=== PATIENT | male | born 1945 | race Caucasian/White ===

== ENCOUNTER → 2018-04-30 09:44 | Outpatient (BNVA) | payer MEDICARE, SELFPAY | PROVIDERS: PCP Emergency Medicine; Visit Provider Surgery | DX: R19.8 Other specified symptoms and signs involving the digestive system and abdomen (principal); I10 Essential (primary) hypertension | CPT/HCPCS: 99213 ==

== ENCOUNTER 2018-05-29 09:48 | Day surgery (SDC) | payer MEDICARE, SELFPAY ==
[2018-05-29 10:38] VITALS: BP 142/93; PULSE 70; RESP 16; TEMP 37; O2SAT 99
[2018-05-29] MEDS: Lactated Ringers 1,000 ML 30 ML IV ×2 (10:55→12:31)
--- NOTE | 2018-05-29 12:06 | ROE_ITS ---
Date of service: 05/29/18 Time of Service: 12:04 Operative Note DATE OF PROCEDURE: 05/29/18 PRE-OP DIAGNOSIS: Abnormal findings on EGD POST-OP DIAGNOSIS: same PROCEDURE: Esophagogastroduodenoscopy with biopsies by cold forceps SURGEON: Ethan Rome ANESTHESIA: MAC (Heather Escobar CRNA; ASA 2 Mallampati class II) ESTIMATED BLOOD LOSS: 1 PATHOLOGY: other (1. Gastric antral biopsies 2. Gastroesophageal junction biopsies) COMPLICATIONS: None Patient was transported to: PACU Patient's condition: stable Indications: Mr. 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 It was recommended he follow-up in 6 months for a repeat EGD which is what he is here for today. His dysphagia has resolved he continues to take the ranitidine has no other complaints today other than some shoulder pain. Findings: In examining the upper gastrointestinal tract from the oropharynx to the third portion of the duodenum, the duodenum appeared grossly normal, but again was seen inflammatory changes in the gastric antrum with multiple biopsies taken and submitted for pathology. The remainder of the stomach appeared grossly normal. The GE junction was measured at 36 cm; the Z line was at 30 cm and a little irregular. Four-quadrant biopsies were taken from the GE junction for pathology review. The remainder the esophagus appeared grossly normal. Procedure Description: The patient was brought to the procedure room. Monitoring for telemetry, end- tidal CO2, O2 saturation, blood pressure were applied. An appropriate timeout was taken reviewing the patient's identification, allergies, medications,and procedure. A bite was placed, and sedation was titrated for effect by the PARA MACHINE OPERATOR. An Olympus variable stiffness endoscope was advanced from the oropharynx to the third portion of the duodenum without difficulty. The scope was then withdrawn in circumferential manner from the duodenum back to the oropharynx. In performing withdrawal of the scope, the duodenum appeared grossly normal. The scope was withdrawn into the gastric antrum and retroflexed to examine the entire stomach. The gastric antrum was noted to be inflamed and again multiple biopsies were taken for pathology,retroflexion the remainder of the stomach appeared grossly normal. The scope was then withdrawn to the GE junction which I measured at 36 cm The Z line was at 36 cm and appeared irregular. The irregularity was noncircumferential and did not extend more than 1 cm four- quadrant biopsies were taken from the GE junction pathological review. I withdrew the scope through the remainder of the esophagus all which appear grossly normal. Scope was then withdrawn terminating the upper endoscopy. Plan: I will await biopsies for making further recommendations.
--- NOTE | 2018-05-29 12:28 | STOM_PTH ---
PATIENT: Louis Odell LOC: [facility] U#:[id number] AGE/SX: 73/M ROOM: RE05/29/[address]: Ethan Rome DO : 1945 BED: DIS: 05/29/2018 SPEC #: [id number] RECD: 05/29/18 17:05 STATUS: CHARLIE RE #: [id number] CURT: 05/29/18 12:[address]: Ethan Rome DEPT: Surgical Specimen RECD BY: Ashlie Schultz ENTERED: 05/29/18 17:06 SP TYPE: STOMACH OTHR DR: Harrison Mccray DO Tissues: 1 - BIOPSY BOWEL 2 - ESOPHAGUS BIOPSY Procedures: GROSS AND MICRO LEVEL 4 IMMUNOPEROXIDASE STAIN Comments: [id number]
--- NOTE | 2018-05-29 12:44 | W.PM.DSUDISC ---
Discharge Plan Disposition Patient Disposition: HOME Condition: Good Discharge Details Reason For Visit: LOW GRADE DYSPLASIA Attending Provider: Ethan Rome Primary Care Provider: Harrison Mccray Home Meds and New Rx's Prescriptions: Continue psyllium husk [Metamucil] 3.4 gram/5.4 gram powder 1 tbs PO BID RF: 0 cholecalciferol (vitamin D3) 1,000 unit capsule 1,000 unit PO DAILY RF: 0 fexofenadine [Lexi] 180 MG tablet 1 tab PO DAILY RF: 0 aspirin [Aspir-81] 81 MG tablet,delayed release (DR/EC) 1 tab PO DAILY RF: 0 omega-3 fatty acids-fish oil 1 EACH capsule 1 cap PO DAILY RF: 0 doxycycline hyclate 50 MG capsule 50 mg PO DAILY Qty: 90 RF: 3 amlodipine 5 MG tablet 5 mg PO DAILY Qty: 90 RF: 4 ranitidine HCl [Zantac] 150 MG tablet 150 mg PO BID Qty: 60 RF: 0 Discharge Instructions Instructions: Upper Endoscopy (DC) Activity:: Activity as Tolerated Diet:: As Tolerated Discharge Orders Discharge Orders: Discharge Order (Routine); Ordered 05/29/18 Ordered By: Ethan Rome DS: Diagnosis Discharge Diagnosis (1) Abnormal findings on esophagogastroduodenoscopy (EGD): Status: Acute Asessment and Plan: EGD performed: Endoscopy Report DATE OF PROCEDURE: 05/29/18 PRE-OP DIAGNOSIS: Abnormal findings on EGD POST-OP DIAGNOSIS: same PROCEDURE: Esophagogastroduodenoscopy with biopsies by cold forceps SURGEON: Ethan Rome ANESTHESIA: MAC (Heather Escobar CRNA; ASA 2 Mallampati class II) ESTIMATED BLOOD LOSS: 1 PATHOLOGY: other (1. Gastric antral biopsies 2. Gastroesophageal junction biopsies) COMPLICATIONS: None Patient was transported to: PACU Patient's condition: stable Indications: Mr. 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 It was recommended he follow-up in 6 months for a repeat EGD which is what he is here for today. His dysphagia has resolved he continues to take the ranitidine has no other complaints today other than some shoulder pain. Findings: In examining the upper gastrointestinal tract from the oropharynx to the third portion of the duodenum, the duodenum appeared grossly normal, but again was seen inflammatory changes in the gastric antrum with multiple biopsies taken and submitted for pathology. The remainder of the stomach appeared grossly normal. The GE junction was measured at 36 cm; the Z line was at 30 cm and a little irregular. Four-quadrant biopsies were taken from the GE junction for pathology review. The remainder the esophagus appeared grossly normal. Procedure Description: The patient was brought to the procedure room. Monitoring for telemetry, end-tidal CO2, O2 saturation, blood pressure were applied. An appropriate timeout was taken reviewing the patient's identification, allergies, medications,and procedure. A bite was placed, and sedation was titrated for effect by the PERCUSSION INSTRUMENT TUNER. An Olympus variable stiffness endoscope was advanced from the oropharynx to the third portion of the duodenum without difficulty. The scope was then withdrawn in circumferential manner from the duodenum back to the oropharynx. In performing withdrawal of the scope, the duodenum appeared grossly normal. The scope was withdrawn into the gastric antrum and retroflexed to examine the entire stomach. The gastric antrum was noted to be inflamed and again multiple biopsies were taken for pathology,retroflexion the remainder of the stomach appeared grossly normal. The scope was then withdrawn to the GE junction which I measured at 36 cm The Z line was at 36 cm and appeared irregular. The irregularity was noncircumferential and did not extend more than 1 cm four-quadrant biopsies were taken from the GE junction pathological review. I withdrew the scope through the remainder of the esophagus all which appear grossly normal. Scope was then withdrawn terminating the upper endoscopy. Plan: I will await biopsies for making further recommendations.
--- NOTE | 2018-05-29 12:47 | PDOC.DSDIS_ITS ---
Discharge Plan Disposition Patient Disposition: HOME Condition: Good Discharge Details Reason For Visit: LOW GRADE DYSPLASIA Attending Provider: Ethan Rome Primary Care Provider: Harrison Mccray Home Meds and New Rx's Prescriptions: Continue psyllium husk [Metamucil] 3.4 gram/5.4 gram powder 1 tbs PO BID RF: 0 cholecalciferol (vitamin D3) 1,000 unit capsule 1,000 unit PO DAILY RF: 0 fexofenadine [Lexi] 180 MG tablet 1 tab PO DAILY RF: 0 aspirin [Aspir-81] 81 MG tablet,delayed release (DR/EC) 1 tab PO DAILY RF: 0 omega-3 fatty acids-fish oil 1 EACH capsule 1 cap PO DAILY RF: 0 doxycycline hyclate 50 MG capsule 50 mg PO DAILY Qty: 90 RF: 3 amlodipine 5 MG tablet 5 mg PO DAILY Qty: 90 RF: 4 ranitidine HCl [Zantac] 150 MG tablet 150 mg PO BID Qty: 60 RF: 0 Discharge Instructions Instructions: Upper Endoscopy (DC) Activity:: Activity as Tolerated Diet:: As Tolerated Discharge Orders Discharge Orders: Discharge Order (Routine); Ordered 05/29/18 Ordered By: Ethan Rome DS: Diagnosis Discharge Diagnosis (1) Abnormal findings on esophagogastroduodenoscopy (EGD): Status: Acute Asessment and Plan: EGD performed: Endoscopy Report DATE OF PROCEDURE: 05/29/18 PRE-OP DIAGNOSIS: Abnormal findings on EGD POST-OP DIAGNOSIS: same PROCEDURE: Esophagogastroduodenoscopy with biopsies by cold forceps SURGEON: Ethan Rome ANESTHESIA: MAC (Heather Escobar CRNA; ASA 2 Mallampati class II) ESTIMATED BLOOD LOSS: 1 PATHOLOGY: other (1. Gastric antral biopsies 2. Gastroesophageal junction biopsies) COMPLICATIONS: None Patient was transported to: PACU Patient's condition: stable Indications: Mr. 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 It was recommended he follow-up in 6 months for a repeat EGD which is what he is here for today. His dysphagia has resolved he continues to take the ranitidine has no other complaints today other than some shoulder pain. Findings: In examining the upper gastrointestinal tract from the oropharynx to the third portion of the duodenum, the duodenum appeared grossly normal, but again was seen inflammatory changes in the gastric antrum with multiple biopsies taken and submitted for pathology. The remainder of the stomach appeared grossly normal. The GE junction was measured at 36 cm; the Z line was at 30 cm and a little irregular. Four-quadrant biopsies were taken from the GE junction for pathology review. The remainder the esophagus appeared grossly normal. Procedure Description: The patient was brought to the procedure room. Monitoring for telemetry, end- tidal CO2, O2 saturation, blood pressure were applied. An appropriate timeout was taken reviewing the patient's identification, allergies, medications,and procedure. A bite was placed, and sedation was titrated for effect by the SCUDDING INSPECTOR. An Olympus variable stiffness endoscope was advanced from the oropharynx to the third portion of the duodenum without difficulty. The scope was then withdrawn in circumferential manner from the duodenum back to the oropharynx. In performing withdrawal of the scope, the duodenum appeared grossly normal. The scope was withdrawn into the gastric antrum and retroflexed to examine the entire stomach. The gastric antrum was noted to be inflamed and again multiple biopsies were taken for pathology,retroflexion the remainder of the stomach appeared grossly normal. The scope was then withdrawn to the GE junction which I measured at 36 cm The Z line was at 36 cm and appeared irregular. The irregularity was noncircumferential and did not extend more than 1 cm four- quadrant biopsies were taken from the GE junction pathological review. I withdrew the scope through the remainder of the esophagus all which appear grossly normal. Scope was then withdrawn terminating the upper endoscopy. Plan: I will await biopsies for making further recommendations.
[2018-05-29 13:07] VITALS: BP 121/66; PULSE 61; RESP 20; TEMP 36; O2SAT 98
== END 2018-05-29 13:34 | disposition home or self-care (01) ==
PROVIDERS: PCP Emergency Medicine; Visit Provider Surgery
PROC: 0DJ68ZZ Inspection of Stomach, Via Natural or Artificial Opening Endoscopic (ICD-10-PCS; CPT 43235; principal; 2018-05-29 11:30)
DX: Z87.19 Personal history of other diseases of the digestive system (principal); K29.50 Unspecified chronic gastritis without bleeding; K21.0 Gastro-esophageal reflux disease with esophagitis; I10 Essential (primary) hypertension
CPT/HCPCS: 43239; 88305; 88361

== ENCOUNTER 2020-03-18 19:41 | Outpatient (REF) | payer MEDICARE, SELFPAY ==
[2020-03-18 22:26] LABS: Calculated LDL 113 mg/dL (<100); Cholesterol 215 mg/dL (<200); HDL Cholesterol 79 mg/dL (40-60); Triglyceride 116 mg/dL (<150)
== END 2020-03-18 20:01 ==
LOC: LBN 19:41
PROVIDERS: PCP Emergency Medicine; Visit Provider Emergency Medicine
DX: I10 Essential (primary) hypertension (principal)
CPT/HCPCS: 80061

== ENCOUNTER 2020-11-03 16:23 | Outpatient (REF) | payer MEDICARE, SELFPAY ==
[2020-11-03 12:39] LABS: HCT 41.4 % (40.0-50.0); HGB 13.9 g/dL (13.5-17.5); MCHC 33.6 % (32.0-36.0); MCV 98.3 fL (80-95); MPV 9.7 fL (8.0-11.0); Platelet Count 229 10^3/uL (130-400); RBC 4.21 10^6/uL (4.36-5.78); RDW 11.9 % (11.8-14.1); RDW-SD 43.5 fL
[2020-11-03 13:31] LABS: ALT 28 U/L (16-63); AST 22 U/L (15-37); Albumin 4.1 g/dL (3.4-5.0); Alkaline Phosphatase 63 U/L (46-116); Anion Gap 7.8 mmol/L (3-11); BUN 11 mg/dL (7-18); Bilirubin, Total 0.8 mg/dL (0.2-1.0); C-Reactive Protein 0.69 mg/dL (0.0-0.3); CO2 29.2 mmol/L (21.0-32.0); CREATININE 0.7 mg/dL (0.70-1.30); Calcium 9.1 mg/dL (8.5-10.1); Chloride 103 mmol/L (98-107); Glucose 95 mg/dL (74-106); Potassium 4.1 mmol/L (3.5-5.1); Sodium 140 mmol/L (136-145); TSH 0.91 uIU/mL (0.36-3.74); Total Protein 7.3 g/dL (6.4-8.2)
== END 2020-11-03 16:24 | disposition home or self-care (01) ==
LOC: LBN 16:23
PROVIDERS: PCP Emergency Medicine; Visit Provider Emergency Medicine
DX: L29.8 Other pruritus (principal); E03.9 Hypothyroidism, unspecified; L98.8 Other specified disorders of the skin and subcutaneous tissue
CPT/HCPCS: 80053; 85027; 84443; 86140

== ENCOUNTER 2021-04-08 15:54 | Emergency (ER) | payer MEDICARE, SELFPAY ==
[2021-04-08] VITALS (17 sets, daily range): BP systolic 119–143; BP diastolic 80–104; PULSE 59–72; RESP 16–18; TEMP 36.6; O2SAT 7–98
--- NOTE | 2021-04-08 16:00 | RT.EKG_ITS ---
APPROVED REPORT Exam: Resting ECG Reason for Exam: chest pain Patient Location: E HR:64 bpm ECG Measurements Heart Rate 64 AXIS WY 164 P 38 QRSd 93 QRS -16 QT 384 T 55 QTc 397 Conclusion Sinus rhythm...normal P axis, V-rate 60- 99
--- NOTE | 2021-04-08 16:10 | W.ED.GENAD ---
Discharge Plan Disposition Patient Disposition: HOME Condition: Stable Discharge Details Clinical Impression: Chest pain Primary Care Provider: Harrison Mccray ED Provider: Horacio Edward Home Meds and New Rx's Prescriptions: Continued Metamucil 3.4 gram/5.4 gram powder 1 tbs PO BID RF: 0 cholecalciferol (vitamin D3) 1,000 unit capsule 1,000 unit PO DAILY RF: 0 cyanocobalamin (vitamin B-12) 500 mcg lozenge 500 mcg PO DAILY RF: 0 fexofenadine [Lexi] 180 MG tablet 1 tab PO DAILY RF: 0 omega-3 fatty acids-fish oil 1 EACH capsule 1 cap PO DAILY RF: 0 amlodipine 5 mg tablet 5 mg PO DAILY Qty: 90 RF: 4 doxycycline hyclate 50 mg capsule 50 mg PO DAILY Qty: 90 RF: 3 Discharge Instructions Instructions: Chest Pain (ED) Additional Instructions: At this time your rapid cardiac rule out was unremarkable, your CTA of your thorax, abdomen is also unremarkable, and you are asymptomatic. Incidentally the CT did show that you have gallbladder stones which could explain your symptoms. I did offer to set up an ultrasound for you tomorrow but you have declined, would rather contact your primary care provider tomorrow to discuss your ER visit, symptoms, and need for further evaluation which could result in an ultrasound of your gallbladder, stress test, echocardiogram, etc. Please watch for new or worsening symptoms and return to the ER for any concerns. Discharge Data Discharge Date/Time-TO BE ENTERED AT DEPARTURE: 04/08/21 20:35 Medical Decision Making This is a 75-year-old gentleman who presents after experiencing chest pain in the lower chest, described as a bandlike, which radiated to his back, while taking potatoes in his garden. Patient rested, drank water, and has been asymptomatic ever since. Although he is asymptomatic now, given his age and multiple comorbidities, story is concerning for ACS, PE, dissection, etc. Plan is to obtain thorax and abdomen CTA, as well as serial troponin here in the ER for rapid cardiac rule out. Patient is agreeable to this plan. Initial laboratory values are unremarkable for obvious emergent process. No evidence of leukocytosis, anemia, platelet count 207, electrolytes are unremarkable. GFR greater than 60, magnesium 1.9, troponin less than 0.05 CT imaging revealed gallbladder disease, consider sonogram. Otherwise unremarkable for obvious emergent process. No PE, or dissection. Patient remains asymptomatic and hemodynamically stable under my care. He is getting anxious for discharge, after speaking with him he is agreeable to awaiting a delta troponin. Repeat EKG performed at 1928, please see official report by Dr. Riley, sinus bradycardia, ventricular rate of 56, no STEMI Repeat troponin remains less than 0.05. Discussed findings with patient. He is requesting discharge. We discussed that his rapid cardiac rule out here in the ER was unremarkable but outpatient echo and/or stress test can likely be pursued by his primary care provider. We also discussed his incidental gallbladder disease which very well could be what caused the symptoms yesterday considering it was lower chest and wrapped into his back. I did recommend setting him up for ultrasound tomorrow but as he states he has been here for several hours today, does not want to come back tomorrow for an ultrasound. He will discuss this with his primary care provider. Strict discharge and return precautions were provided. This documentation was generated using [employer] dictation system, please disregard any oddities of phrase or misspellings. Medical Records Medical records reviewed: Yes I reviewed the patient's medical records. Imaging Data Radiologic Study: Attestation: I personally reviewed and interpreted this imaging study as follows: Imaging: CT Scan Radiologist's impression: PROCEDURE INFORMATION: Exam: CTA Chest With Contrast Exam date and time: 04/08/2021 5:12 PM Age: 75 years old Clinical indication: Chest pressure; Patient HX: Chest pain radiating to back TECHNIQUE: Imaging protocol: Computed tomographic angiography of the chest with contrast. 3D rendering (Not supervised by radiologist): MIP and/or 3D reconstructed images were created by the technologist. Radiation optimization: All CT scans at this facility use at least one of these dose optimization techniques: automated exposure control; mA and/or kV adjustment per patient size (includes targeted exams where dose is matched to clinical indication); or iterative reconstruction. Contrast material: OMNI-PAQUE 350; Contrast volume: 100 ml; Contrast route: INTRAVENOUS (IV); COMPARISON: No relevant prior studies available. FINDINGS: Pulmonary arteries: Normal. No pulmonary emboli. Aorta: Unremarkable. No aortic aneurysm. No aortic dissection. Lungs: Unremarkable. No consolidation. No masses. Pleural spaces: Unremarkable. No pneumothorax. No pleural effusion. Heart: Unremarkable. No cardiomegaly. No pericardial effusion. Lymph nodes: Unremarkable. No enlarged lymph nodes. Bones/joints: Unremarkable. No acute fracture. Soft tissues: Unremarkable. Other findings: Respiratory motion slightly limits the study. KARSON ALMONTE Preliminary Radiology Report Page 2 of 3 IMPRESSION: No evidence for pulmonary embolus. PROCEDURE INFORMATION: Exam: CT Angiography Abdomen With Contrast Exam date and time: 04/08/2021 5:12 PM Age: 75 years old Clinical indication: Chest pressure; Patient HX: Chest pain radiating to back TECHNIQUE: Imaging protocol: Computed tomographic angiography images of the abdomen with intravenous contrast material. 3D rendering (Not supervised by radiologist): MIP and/or 3D reconstructed images were created by the technologist. Radiation optimization: All CT scans at this facility use at least one of these dose optimization techniques: automated exposure control; mA and/or kV adjustment per patient size (includes targeted exams where dose is matched to clinical indication); or iterative reconstruction. Contrast material: OMNI-PAQUE 350; Contrast volume: 100 ml; Contrast route: INTRAVENOUS (IV); COMPARISON: No relevant prior studies available. FINDINGS: Aorta: Moderate to severe atherosclerotic change present in the aorta. Celiac trunk and mesenteric arteries: No occlusion or significant stenosis. Renal arteries: No occlusion or significant stenosis. Liver: Normal. No mass. Gallbladder and bile ducts: Several small gallstones are present. They appear to be located at the gallbladder neck level. Pancreas: Normal. No ductal dilation. Spleen: Normal. No splenomegaly. Adrenals: Normal. No mass. Kidneys and ureters: Small bilateral renal cysts present. Stomach and bowel: Fairly significant fecal retention pattern. Left-sided colonic anastomosis noted. Duodenal diverticulum identified. Appendix: The appendix is well seen, within normal limits. Lymph nodes: Shotty mesenteric adenopathy. Intraperitoneal space: Unremarkable. No free air. No significant fluid collection. Bones/joints: Unremarkable. No acute fracture. No dislocation. Soft tissues: Unremarkable. Other findings: Respiratory motion slightly limits the study. KARSON ALMONTE Preliminary Radiology Report CHIEF SUPPLY CHAIN OFFICER (QA) DISCREPANCY? If there is a discrepancy between the preliminary and final interpretation, please notify [facility] via [email or web address]. If you do not have access to our QA portal, call our QA team at [phone] CONFIDENTIALITY STATEMENT This report is intended only for the use of the referring physician, and only in accordance with law, If you received this in error, call [phone] Page 3 of 3 IMPRESSION: 1. Gallbladder disease. Consider sonography. 2. Constipated change present. Thank you for allowing us to participate in the care of your patient Lab Data Lab results reviewed: Yes I reviewed the patient's lab results. Labs: Laboratory Tests Range/Units 04/08/21 04/08/21 04/08/21 16:15 16:15 19:20 WBC (4.4-10.8) 10^3/uL 8.88 RBC (4.36-5.78) 10^6/uL 4.26 L Hgb (13.5-17.5) g/dL 14.1 Hct (40.0-50.0) % 41.7 MCV (80-95) fL 97.9 H MCH (27.0-33.0) pg 33.1 H MCHC (32.0-36.0) % 33.8 RDW (11.8-14.1) % 12.4 Plt Count (130-400) 10^3/uL 207 MPV (8.0-11.0) fL 8.8 Immature Gran % 0.2 Neutrophils % 61.0 Lymphocytes % 25.5 Monocytes % 11.4 Eosinophils % 1.7 Basophils % 0.2 Nucleated RBC % % 0 Absolute Neutrophils (1.2-6.7) 10^3/uL 5.42 Absolute Lymphocytes (1.2-3.4) 10^3/uL 2.26 Absolute Monocytes (0.1-0.8) 10^3/uL 1.01 H Absolute Eosinophils (0.0-0.7) 10^3/uL 0.15 Absolute Basophils (0.0-0.2) 10^3/uL 0.02 Sodium (136-145) mmol/L 136 Potassium (3.5-5.1) mmol/L 4.1 Chloride (98-107) mmol/L 100 Carbon Dioxide (21.0-32.0) mmol/L 25.7 Anion Gap (3-11) mmol/L 10.3 BUN (7-18) mg/dL 16 Creatinine (0.70-1.30) mg/dL 0.8 Estimated GFR/1.73 m2 (mL/min/1.73m2) >= 60.00 Glucose (74-106) mg/dL 87 Calcium (8.5-10.1) mg/dL 9.2 Magnesium (1.8-2.4) mg/dL 1.9 Total Bilirubin (0.2-1.0) mg/dL 0.6 AST (15-37) U/L 17 ALT (16-63) U/L 32 Alkaline Phosphatase (46-116) U/L 71 Troponin I (<0.06) ng/mL < 0.05 < 0.05 Total Protein (6.4-8.2) g/dL 7.7 Albumin (3.4-5.0) g/dL 4.2 ECG Data Attestation: I personally reviewed and interpreted this ECG (s) as follows: Interpretation: Please see official report by Dr. Riley. Sinus rhythm, ventricular rate of 64. No STEMI. HPI General Mode of arrival: ambulatory. Date/Time Provider Initiated Documentation: 04/08/21 15:56. Limitations to Documentation: no limitations. Information obtained by: patient. HPI Narrative: This is a 75-year-old male, past medical history of hypertension, CAD, dysphagia, hyperlipidemia, anxiety, depression, presenting to the ER at the advice of his primary care provider for evaluation of chest pain that he felt yesterday. Patient states early yesterday afternoon he was outside digging in the garden for potatoes, experienced what he describes as diffuse lower chest pain in a bandlike distribution, moderate, sharp and achy, but did radiate through his back. Patient states that he went inside, rested, had a glass of water, the symptoms resolved and have not returned. Patient denies any symptoms today whatsoever. He denies recent illness or trauma. Denies headache, fever, neck pain, shortness of breath, abdominal pain, nausea, vomiting, change in bowel or bladder function, numbness, tingling, weakness, pain or swelling in his legs. Patient reports chronic dysphagia which is no different today. Related Data Home Medications Medication Instructions Recorded Confirmed fexofenadine [Lexi] 1 tab PO DAILY 10/04/12 04/08/21 omega-3 fatty acids-fish oil 1 cap PO DAILY 10/04/12 04/08/21 cholecalciferol (vitamin D3) 25 1,000 unit PO DAILY 03/09/18 04/08/21 mcg (1,000 unit) capsule psyllium husk 3.4 gram/5.4 gram 1 tbs PO BID 03/09/18 04/08/21 oral powder amlodipine 5 mg tablet 5 mg PO DAILY #90 tab-cap 04/08/20 04/08/21 doxycycline hyclate 50 mg capsule 50 mg PO DAILY #90 tab-cap 10/15/20 04/08/21 cyanocobalamin (vitamin B-12) 500 500 mcg PO DAILY 04/08/21 04/08/21 mcg lozenges Previous Rx's Medication Instructions Recorded amlodipine 5 mg tablet 5 mg PO DAILY #90 tab-cap 04/08/20 doxycycline hyclate 50 mg capsule 50 mg PO DAILY #90 tab-cap 10/15/20 Allergies Allergy/AdvReac Type Severity Reaction Status Date / Time morphine Allergy Severe THROAT Verified 04/08/21 10:12 SWELLING simvastatin AdvReac Unknown INTOLERANT Verified 04/08/21 10:12 General Stated Complaint: GenMedical ARIES: 3 Review of Systems Constitutional Constitutional: Denies fatigue, Denies fever(s), Denies headache(s) and Denies weakness Eyes Eyes: Denies change in vision ENT Ears, Nose, Mouth, and Throat: Denies headache(s) and Denies neck pain Cardiovascular Cardiovascular: Reports chest pain and Denies dyspnea Respiratory Respiratory: Denies cough and Denies dyspnea Gastrointestinal Gastrointestinal: Denies abdominal pain, Denies nausea and Denies vomiting Genitourinary Genitourinary: Denies hematuria and Denies dysuria Musculoskeletal Musculoskeletal: Reports back pain (Yesterday, none today.), Denies neck pain, Denies numbness and Denies tingling Integumentary/Breasts Skin/Breast: Denies rash Neurologic Neurologic: Denies headache(s), Denies numbness, Denies tingling and Denies weakness Endocrine Endocrine: Denies fatigue Hematologic/Lymphatic Hematologic/Lymphatic: Denies easy bleeding and Denies easy bruising [facility] Medical History Adenomatous polyp of colon s/p sigmoid resection for large polyp 2008 CAD (coronary artery disease) chest pain 2007- cath- nonobstructive Closed right ankle fracture DJD Dysphagia 2004- HH, esophageal ring and presbyesophagus Dysphagia History of elevated PSA Hx of sciatica Hyperlipidemia elevated LDL Hypertension Incontinence of feces Peptic ulcer disease 2004- H. pylori positive treated Pruritic dermatitis Recurrent anxiety Recurrent depression Right shoulder pain Rosacea Sleep disorder Surgical History CARDIAC CATH LEFT non-obstructive CAD Colonoscopy - IV Sedation (01/01/13) DR. Estefany BUTLER; T.A. Colonoscopy - MAC (03/29/17) EGD - IV Sedation 2006 EGD - MAC (12/29/17) Hemicolectomy RIGHT HEMICOLECTOMY, 02/25 OPEN HEMICOLECTOMY @ 40CM TO REMOVE TUBULAR ADENOMA COVERING 1/3 OF BOWEL WALL. History of esophagogastroduodenoscopy (EGD) (05/29/18) 05/29/18 - EGD - Dr Rome - focal intestinal metaplasia and active reflux, repeat 6 mos. Ranitidine BID. Prostatectomy (~2001) Urethral Dilation Sigmoid resection for polyps 2008 Family History Mother , age 81 Neoplasm Alzheimers disease Father , age 75 Heart disease Sister , age 71 Heart disease Alzheimers disease Sister , age 79 Heart disease Neoplasm Alzheimers disease Brother , age 52 Heart disease Brother , age 45 Heart disease Maternal Grandfather No problems noted. Paternal Grandfather No problems noted. Maternal Grandmother No problems noted. Paternal Grandmother No problems noted. FAMILY HISTORY Diabetes Sister , age 62 Neoplasm Heart disease Brother Heart disease Social History Smoking/Tobacco Use Status: Former Tobacco Use Quit Date: 06/19/79 Pack-years: 20 Second Hand Exposure: No Smoking risk assessment performed?: Yes Alcohol Intake: current Alcohol Intake frequency: a few times a month Drug use: Rarely Substance use type: marijuana Do you feel safe at home: Yes Do you feel safe in your relationship?: Yes Exam Const General: cooperative, healthy appearing, comfortable and no acute distress Orientation: alert, awake and oriented x3 HENMT Head: normal to inspection, normocephalic and atraumatic Face and sinus: normal facial exam Mouth: moist mucous membranes Eyes General: appearance normal, both eyes and all related structures Conjunctivae: conjunctivae normal Neck Neck: normal visual inspection, full ROM, trachea midline, supple and nontender Chest Chest: normal inspection of the chest and normal palpation of entire chest wall Resp Effort & Inspection: normal respiratory effort and able to speak in complete sentences Auscultation: clear to auscultation bilaterally Cardio Rate: regular rate Rhythm: regular rhythm GI Inspection: normal to inspection Palpation: soft, not firm, no guarding, no pulsatile masses and nontender Auscultation: normal bowel sounds Back/Spine/Pelvis Back: no CVA tenderness and No back tenderness Skin General skin exam: no rashes or lesions noted Neuro General: patient alert, patient awake, moves all extremities and no focal motor deficits Cognition: normal cognition Speech: speech normal Gait: normal gait Motor: muscle tone normal throughout Sensory Exam: no sensory deficits noted Extrem General: normal to inspection, full ROM, capillary refill normal, no pedal edema and no calf tenderness Psych Appearance: grossly normal Mental Status: mental status grossly normal Course Vital Signs Vital signs: Vital Signs Temperature 36.6 C 04/08/21 16:00 Pulse 64 04/08/21 16:00 Respiratory Rate 18 04/08/21 16:00 Blood Pressure 134/83 04/08/21 16:00 Pulse Oximetry 7 L 04/08/21 16:00 Temperature 36.6 C 04/08/21 16:00 Temperature Source Oral 04/08/21 16:00 Pulse 64 04/08/21 16:00 Respiratory Rate 18 04/08/21 16:00 Blood Pressure 134/83 04/08/21 16:00 Pulse Oximetry 7 L 04/08/21 16:00 Pain Level 7 04/08/21 16:00
[2021-04-08 16:30] LABS: Abs Immature Grans 0.02 10^3/uL (0.0-0.06); Absolute Basophil Count 0.02 10^3/uL (0.0-0.2); Absolute Eosinophil Count 0.15 10^3/uL (0.0-0.7); Absolute Lymphocyte Count 2.26 10^3/uL (1.2-3.4); Absolute Monocyte Count 1.01 10^3/uL (0.1-0.8); Absolute Neutrophil Count 5.42 10^3/uL (1.2-6.7); Basophils % 0.2; Eosinophils % 1.7; HCT 41.7 % (40.0-50.0); HGB 14.1 g/dL (13.5-17.5); Immature Grans % 0.2; Lymphocytes % 25.5; MCH 33.1 pg (27.0-33.0); MCHC 33.8 % (32.0-36.0); MCV 97.9 fL (80-95); MPV 8.8 fL (8.0-11.0); Monocytes % 11.4; Nucleated RBC 0 %; Platelet Count 207 10^3/uL (130-400); RBC 4.26 10^6/uL (4.36-5.78); RDW 12.4 % (11.8-14.1); RDW-SD 44.7 fL; WBC 8.88 10^3/uL (4.4-10.8)
[2021-04-08 16:58] LABS: ALT 32 U/L (16-63); AST 17 U/L (15-37); Albumin 4.2 g/dL (3.4-5.0); Alkaline Phosphatase 71 U/L (46-116); Anion Gap 10.3 mmol/L (3-11); BUN 16 mg/dL (7-18); Bilirubin, Total 0.6 mg/dL (0.2-1.0); CO2 25.7 mmol/L (21.0-32.0); CREATININE 0.8 mg/dL (0.70-1.30); Calcium 9.2 mg/dL (8.5-10.1); Chloride 100 mmol/L (98-107); Glucose 87 mg/dL (74-106); Magnesium 1.9 mg/dL (1.8-2.4); Potassium 4.1 mmol/L (3.5-5.1); Sodium 136 mmol/L (136-145); Total Protein 7.7 g/dL (6.4-8.2)
[2021-04-08 16:59] LABS: Troponin I < 0.05 ng/mL (<0.06)
--- NOTE | 2021-04-08 18:40 | DI.CT_ITS ---
Exam(s) CT THORAX ABDOMEN CTA EXAM: CT THORAX ABDOMEN CTA CLINICAL HISTORY: chest pain radiating to back. TECHNIQUE: Imaging Protocol: Axial CT angiography was performed with multi-slice acquisition and m ulti-planar and/or 3D reconstructions. CONTRAST MATERIAL: Intravenous: Omnipaque 350 Contrast volume:100 mL Oral: No COMPARISON: No exams were available for comparison FINDINGS: The examination is limited due to patient motion artifact. CHEST: Tracheobronchial tree: Patent where visualized. Pulmonary parenchyma: No consolidation or dominant measurable mass. No architectural distortion. Pulmonary Arteries: No evidence of filling defect to suggest pulmonary emboli. Mediastinum and Orin: No dominant adenopathy or fluid collection. Small hiatal hernia. Visualized thyroid: Unremarkable. Pleura: No effusion or pneumothorax. Heart: The heart is not dilated. Coronary artery calcifications are present. No pericardial effusion . Aorta: Thoracic aorta non-dilated. Atherosclerosis is present. There is no evidence of dissection. Soft Tissues: Unremarkable. Bones: Age-appropriate degenerative changes are present. ABDOMEN AND PELVIS: Abdomen: Celiac axis/mesenteric arteries: No evidence of occlusion or significant stenosis. Mild atherosclero sis. Renal Arteries: No evidence of occlusion or significant stenosis. There is a single renal artery per fusing each kidney. Mild atherosclerosis at the origin of the right renal artery. Aorta: No evidence of occlusion or significant stenosis. No aneurysm or dissection. Mild atheroscl erosis. Iliac Arteries: No evidence of occlusion or significant stenosis. Mild atherosclerosis. ABDOMEN: Liver: Normal density. No measurable mass. Portal, Superior Mesenteric, and Splenic Veins: Unremarkable. Gallbladder and Biliary Tract: Cholelithiasis in the region of the gallbladder neck. No biliary duct al dilatation. Pancreas: Normal density, no abnormal calcifications or inflammatory process. Spleen: Normal. Adrenals: No masses seen. Kidneys: Normal size, contour and axis. 2 mm nonobstructing stone in the lower pole of the right kidn ey. 2.3 cm simple cyst in the left kidney. No follow-up is recommended. There is a tiny hypodensit y in the right kidney in the midpole. It is too small for further characterization but likely reflec ts a small cyst. Bowel: No obstruction or bowel wall thickening. Appendix is unremarkable. There is a moderate amount of stool throughout the colon. There is a large duodenal diverticulum. Peritoneal Cavity: No ascites, collection or mesenteric inflammatory response. No free air. Lymph Nodes: Within normal limits. Bones: Degenerative changes are seen in the spine. There is grade 1 pseudo spondylolisthesis of L4 o n L5. There is mild retrolisthesis of L3 on L4. Soft Tissues: Unremarkable. IMPRESSION: 1. No evidence of a pulmonary embolism, thoracic aortic dissection or aneurysm. 2. No evidence of abdominal aortic aneurysm or dissection. 3. Cholelithiasis. No biliary duct dilatation. 4. Moderate amount of retained stool throughout the colon. RADIATION DOSE DELIVERED: 628.15mGy.cm Total DLP DATA REPOSITORY: All CT scans at this facility are submitted to the National Radiology Data Registry (NRDR) Dose Index Registry (DIR) with the [employer] (ACR). RADIATION OPTIMIZATION: All CT scans at this facility use at least one of these dose optimization te chniques: automated exposure control; mA and/or kV adjustment per patient size (includes targeted exa ms where dose is matched to clinical indication); or iterative reconstruction.
[2021-04-08] MEDS: Normal Saline - Diluent 50 ML VIAL IV (18:53)
[2021-04-08] MEDS: Omnipaque 350 MG/ML 100 ML BTL IJ (18:54)
--- NOTE | 2021-04-08 19:06 | DI.VRAD_ITS ---
PROCEDURE INFORMATION: Exam: CTA Chest With Contrast Exam date and time: 04/08/2021 5:12 PM Age: 75 years old Clinical indication: Chest pressure; Patient HX: Chest pain radiating to back TECHNIQUE: Imaging protocol: Computed tomographic angiography of the chest with contrast. 3D rendering (Not supervised by radiologist): MIP and/or 3D reconstructed images were created by the technologist. Radiation optimization: All CT scans at this facility use at least one of these dose optimization techniques: automated exposure control; mA and/or kV adjustment per patient size (includes targeted exams where dose is matched to clinical indication); or iterative reconstruction. Contrast material: OMNI-PAQUE 350; Contrast volume: 100 ml; Contrast route: INTRAVENOUS (IV); COMPARISON: No relevant prior studies available. FINDINGS: Pulmonary arteries: Normal. No pulmonary emboli. Aorta: Unremarkable. No aortic aneurysm. No aortic dissection. Lungs: Unremarkable. No consolidation. No masses. Pleural spaces: Unremarkable. No pneumothorax. No pleural effusion. Heart: Unremarkable. No cardiomegaly. No pericardial effusion. Lymph nodes: Unremarkable. No enlarged lymph nodes. Bones/joints: Unremarkable. No acute fracture. Soft tissues: Unremarkable. Other findings: Respiratory motion slightly limits the study. IMPRESSION: No evidence for pulmonary embolus. PROCEDURE INFORMATION: Exam: CT Angiography Abdomen With Contrast Exam date and time: 04/08/2021 5:12 PM Age: 75 years old Clinical indication: Chest pressure; Patient HX: Chest pain radiating to back TECHNIQUE: Imaging protocol: Computed tomographic angiography images of the abdomen with intravenous contrast material. 3D rendering (Not supervised by radiologist): MIP and/or 3D reconstructed images were created by the technologist. Radiation optimization: All CT scans at this facility use at least one of these dose optimization techniques: automated exposure control; mA and/or kV adjustment per patient size (includes targeted exams where dose is matched to clinical indication); or iterative reconstruction. Contrast material: OMNI-PAQUE 350; Contrast volume: 100 ml; Contrast route: INTRAVENOUS (IV); COMPARISON: No relevant prior studies available. FINDINGS: Aorta: Moderate to severe atherosclerotic change present in the aorta. Celiac trunk and mesenteric arteries: No occlusion or significant stenosis. Renal arteries: No occlusion or significant stenosis. Liver: Normal. No mass. Gallbladder and bile ducts: Several small gallstones are present. They appear to be located at the gallbladder neck level. Pancreas: Normal. No ductal dilation. Spleen: Normal. No splenomegaly. Adrenals: Normal. No mass. Kidneys and ureters: Small bilateral renal cysts present. Stomach and bowel: Fairly significant fecal retention pattern. Left-sided colonic anastomosis noted. Duodenal diverticulum identified. Appendix: The appendix is well seen, within normal limits. Lymph nodes: Shotty mesenteric adenopathy. Intraperitoneal space: Unremarkable. No free air. No significant fluid collection. Bones/joints: Unremarkable. No acute fracture. No dislocation. Soft tissues: Unremarkable. Other findings: Respiratory motion slightly limits the study. IMPRESSION: 1. Gallbladder disease. Consider sonography. 2. Constipated change present. Dictated and Authenticated by: Dior Umana MD. Ordering:ANGELO Leonard MD
--- NOTE | 2021-04-08 19:15 | RT.EKG_ITS ---
APPROVED REPORT Exam: Resting ECG Reason for Exam: chest pain Patient Location: E HR:56 bpm ECG Measurements Heart Rate 56 AXIS DE 171 P 38 QRSd 97 QRS -15 QT 399 T 58 QTc 386 Conclusion Sinus bradycardia...rate< 60
[2021-04-08 20:04] LABS: Troponin I < 0.05 ng/mL (<0.06)
== END 2021-04-08 20:35 | disposition home or self-care (01) ==
PROVIDERS: Emergency Provider Physician Assistant; PCP Emergency Medicine
DX: R07.9 Chest pain, unspecified (principal)
CPT/HCPCS: 36415; 71275; 74175; 80053; 93005; 99285; 83735; 84484; 85025; 93010; 99284; J3490

== ENCOUNTER → 2021-04-29 10:57 | Outpatient (BNVA) | payer MEDICARE, SELFPAY | PROVIDERS: PCP Emergency Medicine; Referring Provider Emergency Medicine; Visit Provider Physical Therapy Assistant | DX: R13.10 Dysphagia, unspecified (principal); I10 Essential (primary) hypertension | CPT/HCPCS: 99214 ==

== ENCOUNTER 2021-07-07 01:57 | Outpatient (CLI) | payer MEDICARE, SELFPAY ==
[2021-07-07 11:57] LABS: Source Nasal/Nares
[2021-07-07 16:14] LABS: COVID-19 PCR Negative (Negative)
== END 2021-07-07 01:58 | disposition home or self-care (01) ==
LOC: LBO 01:57
PROVIDERS: PCP Emergency Medicine; Visit Provider Surgery
DX: Z20.822 Contact with and (suspected) exposure to COVID-19 (principal)
CPT/HCPCS: 87635

== ENCOUNTER 2022-07-06 13:45 | Emergency (ER) | payer OTHER, SELFPAY ==
[2022-07-06 13:58] VITALS: BP 158/98; PULSE 70; RESP 16; TEMP 37; O2SAT 99
--- NOTE | 2022-07-06 14:00 | DI.RAD_ITS ---
Exam(s) XR SHOULDER RT COMPLETE 2+V EXAM: XR SHOULDER RT COMPLETE 2+V CLINICAL HISTORY: pain s/p fall. TECHNIQUE: 2D digital imaging was performed. COMPARISON: No exams were available for comparison FINDINGS: Five views: No evidence of acute fracture or dislocation. No abnormal soft tissue calcifications. There are mil d degenerative changes in the glenohumeral joint. Moderate degenerative changes in the AC joint. Ca lcific density seen anterior to the humeral head on the axial view. This is corticated and does not have the appearance of an acute fracture fragment but may represent element of calcific rotator cuff tendinitis. IMPRESSION: As above. DATA REPOSITORY: RADIATION DOSE DELIVERED:
--- NOTE | 2022-07-06 14:00 | DI.RAD_ITS ---
Exam(s) XR HUMERUS RT EXAM: XR HUMERUS RT CLINICAL HISTORY: pain s/p fall. TECHNIQUE: 2D digital imaging was performed. COMPARISON: No exams were available for comparison FINDINGS: 3 views No evidence of humerus fracture or dislocation. Mild diminution of the subacromial space is noted. This may indicate an element of rotator cuff pathology. No osseous lesions. IMPRESSION: No fractures. Other findings as above. DATA REPOSITORY: RADIATION DOSE DELIVERED:
--- NOTE | 2022-07-06 14:10 | ED.GENADUL_ITS ---
Discharge Plan Disposition Patient Disposition: Home Condition: Stable Discharge Details Clinical Impression: Contusion of right shoulder Primary Care Provider: Rosi Rosario ED Provider: Srinath Riley Home Meds and New Rx's Prescriptions: Continued Metamucil 3.4 gram/5.4 gram powder 1 tbs PO BID cholecalciferol (vitamin D3) 1,000 unit capsule 1,000 unit PO DAILY doxycycline hyclate 50 mg capsule 50 mg PO DAILY Qty: 90 3RF cyanocobalamin (vitamin B-12) 500 mcg lozenge 500 mcg PO DAILY turmeric root extract 500 mg capsule 500 mg PO DAILY zinc 50 mg tablet 50 mg PO DAILY fjfxiwu-ntatyrkt-ngip 12.5-625-125 mg capsule 1 cap PO DAILY acetaminophen [Tylenol] 325 mg tablet 325 mg PO ONCE PRN ibuprofen 600 mg tablet 600 mg PO Q8H PRN omega-3 fatty acids-fish oil 1 EACH capsule 1 cap PO DAILY famotidine 20 mg tablet 20 mg PO BID Qty: 180 3RF amlodipine 5 mg tablet 5 mg PO DAILY Qty: 90 4RF Discharge Instructions Instructions: Contusion in Adults (ED) Additional Instructions: Your xrays did not show broken bones if pain not better within a week see your primary care provider if you feel more ill, have severe worsening of pain or new pain such as chest pain return to the emergency department Medical Decision Making 77 yo male with hx of htn, hld, who comes in with 3 weeks of right shoulder pain. He states 3 weeks ago he tripped at his home on a step and landed on his right shoulder. He denies preceding symptoms to this and did not hit his head. He continues to have pain in the right shoulder with movement so came here for an eval. He denies headaches, neck pain, back pain, chest pain, abdomen pain. HE localizes the pain to the proximal humerus and right anterior shoulder and can range it to about 90 degrees then limited by pain. He has no tenderness in the elbow, forearm, wrist or hand with intact distal sensation and pulses, no midline c/t/l spine tenderness, no chest or abdomen tenderness and no signs of trauma to the head. Suspect contusion but will xray to evaluate for fracture. imaging unremarkable, stable exam. Suspect contusion vs strain, advised to use his sling he has had home, advised to f/u with pcp and return precautions given Differential Diagnosis Differential Diagnosis: fracture, contusion Imaging Data Radiologic Study: Attestation: I personally reviewed and interpreted this imaging study as follows: Imaging: X-Ray My impression: no acute findings shoulder or humerus xray HPI General Mode of arrival: ambulatory . Date/Time Provider Initiated Documentation: 07/06/22 14:04 . Limitations to Documentation: no limitations . Information obtained by: patient . History of Present Illness 77 year old M presents to the emergency department with the chief complaint of right shoulder pain, described as moderate, Quality is described as aching, Patient repo rts no radiation. Patient started experiencing this week(s) (3) and it has been constant. No relieving factors improve symptom(s), No exacerbating factors reported . Patient notes no other symptoms.. Patient did receive the following treatments prior to arrival, none Related Data Home Medications Medication Instructions Recorded Confirmed omega-3 fatty acids-fish oil 300 1 cap PO DAILY 10/04/12 07/06/22 mg-1,000 mg capsule cholecalciferol (vitamin D3) 25 1,000 unit PO DAILY 03/09/18 07/06/22 mcg (1,000 unit) capsule psyllium husk 3.4 gram/5.4 gram 1 tbs PO BID 03/09/18 07/06/22 oral powder (Metamucil) cyanocobalamin (vitamin B-12) 500 500 mcg PO DAILY 04/08/21 07/06/22 mcg lozenges acetaminophen 325 mg tablet 325 mg PO ONCE PRN 04/13/21 07/06/22 (Tylenol) calcium fwvgnavhg-kzkpyeiw-eqpr 1 cap PO DAILY 04/13/21 04/29/22 12.5 mg-625 mg-125 mg capsule ibuprofen 600 mg tablet 600 mg PO Q8H PRN 04/13/21 07/06/22 turmeric root extract 500 mg 500 mg PO DAILY 04/13/21 07/06/22 capsule zinc 50 mg tablet 50 mg PO DAILY 04/13/21 07/06/22 doxycycline hyclate 50 mg capsule 50 mg PO DAILY #90 tab-caps 10/12/21 07/06/22 famotidine 20 mg tablet 20 mg PO BID Barretts esophagus 10/26/21 07/06/22 #180 tabs amlodipine 5 mg tablet 5 mg PO DAILY #90 tab-caps 07/04/22 07/06/22 Previous Rx's Medication Instructions Recorded doxycycline hyclate 50 mg capsule 50 mg PO DAILY #90 tab-caps 10/12/21 famotidine 20 mg tablet 20 mg PO BID Barretts esophagus 10/26/21 #180 tabs amlodipine 5 mg tablet 5 mg PO DAILY #90 tab-caps 07/04/22 Allergies Allergy/AdvReac Type Severity Reaction Status Date / Time morphine Allergy Severe THROAT Verified 07/06/22 14:03 SWELLING simvastatin AdvReac Unknown INTOLERANT Verified 07/06/22 14:03 General Stated Complaint: Orthopedic ARIES: 4 Review of Systems All systems reviewed & are unremarkable except as noted in HPI and below Constitutional Constitutional: Denies chills, Denies fever(s) and Denies weakness Cardiovascular Cardiovascular: Denies chest pain and Denies dyspnea Respiratory Respiratory: Denies cough and Denies dyspnea Gastrointestinal Gastrointestinal: Denies abdominal pain, Denies nausea and Denies vomiting Genitourinary Genitourinary: Denies dysuria Musculoskeletal Musculoskeletal: Denies joint swelling Integumentary/Breasts Skin/Breast: Denies rash Neurologic Neurologic: Denies weakness Endocrine Endocrine: Denies cold intolerance and Denies heat intolerance PFSH All Active Problems (Updated 07/06/22 @ 15:08 by Srinath Riley MD) Recurrent depression (Chronic) Essential hypertension (Acute 04/08/13) Generalized osteoarthrosis of multiple sites (Acute) right ankle Hyperlipidemia (Acute) Rosacea (Acute) Sensorineural hearing loss, bilateral (Acute 09/14/15) Incontinence of feces (Acute) Chronic insomnia (Acute) Contusion of right shoulder (Acute) Medical History (Updated 07/06/22 @ 15:08 by Srinath Riley MD) Adenomatous polyp of colon s/p sigmoid resection for large polyp 2008 CAD (coronary artery disease) chest pain 2007- cath- nonobstructive Closed right ankle fracture DJD Dysphagia 2004- HH, esophageal ring and presbyesophagus History of elevated PSA History of left heart catheterization (~2007) non obstructive disease History of tobacco use quit 06/19/1979; smoked for 25 yrs Hx of sciatica Peptic ulcer disease 2004- H. pylori positive treated Raised prostate specific antigen Recurrent anxiety Surgical History (Updated 04/29/22 @ 15:40 by Rosi Rosario MD) Colonoscopy - MAC (03/29/17) History of dilation of urethra History of esophagogastroduodenoscopy (EGD) (05/29/18) 05/29/18 - EGD - Dr Rome - focal intestinal metaplasia and active reflux, repeat 6 mos. Ranitidine BID. History of hemicolectomy RIGHT HEMICOLECTOMY, 02/25 OPEN HEMICOLECTOMY @ 40CM TO REMOVE TUBULAR ADENOMA COVERING 1/3 OF BOWEL WALL. Status post prostatectomy enlarged, no cancer per pt Urethral Dilation Sigmoid resection for polyps 2008 Family History Mother , age 81 Neoplasm Alzheimers disease Father , age 75 Heart disease Sister , age 71 Heart disease Alzheimers disease Sister , age 79 Heart disease Neoplasm Alzheimers disease Brother , age 52 Heart disease Brother , age 45 Heart disease Maternal Grandfather No problems noted. Paternal Grandfather No problems noted. Maternal Grandmother No problems noted. Paternal Grandmother No problems noted. FAMILY HISTORY Diabetes Sister , age 62 Neoplasm Heart disease Brother Heart disease Social History (Updated 05/04/22 @ 11:21 by Olamide Carrion) Smoking/Tobacco Use Status: Former Tobacco Use tobacco type: cigarettes Quit Date: 06/19/79 Pack-years: 20 Second Hand Exposure: Yes Smoking risk assessment performed?: Yes Alcohol Intake: current Alcohol Intake frequency: a few times a week Alcohol type: wine Drug use: Rarely Substance use type: marijuana Caregiver/Support person: No Household members: spouse Housing: house Number of Children: 3 Communication Needs: Hard of Hearing Do you need help understanding health information?: Often current occupation: Retired from [employer]. Pets and animals: No Sexually active: Yes What is your relationship status?: How often do you get together with friends or relatives?: twice per week Do you belong to any clubs or organized social groups?: no Panel score (0-1 are the most socially isolated patients): 1 What type of physical activity do you participate in: other Details: house hold chores Duration: > 90 minutes/day Frequency: 5-6 times per week [place]/Congregational: No preference Do you feel safe at home: Yes Do you feel safe in your relationship?: Yes Additional Social history: Enjoys gardening, cutting firewood, snowshoeing. Exam Const General: no acute distress Orientation: alert HENMT Head: normal to inspection Ears: external ears normal General nose exam: external nose normal Mouth: moist mucous membranes Eyes General: appearance normal, both eyes and all related structures Neck Neck: normal visual inspection Resp Effort & Inspection: normal respiratory effort and able to speak in complete sentences Cardio Rate: regular rate Skin General skin exam: no rashes or lesions noted Neuro General: patient alert and patient oriented x3 Extrem General: normal to inspection and capillary refill normal Psych Mental Status: mental status grossly normal Course Vital Signs Vital signs: Vital Signs Temperature 37.0 C 07/06/22 13:58 Pulse 70 07/06/22 13:58 Respiratory Rate 16 07/06/22 13:58 Blood Pressure 158/98 H 07/06/22 13:58 Pulse Oximetry 99 07/06/22 13:58 Temperature 37.0 C 07/06/22 13:58 Temperature Source Temporal Artery Scan 07/06/22 13:58 Pulse 70 07/06/22 13:58 Respiratory Rate 16 07/06/22 13:58 Respiratory Effort Non-Labored 07/06/22 14:01 Blood Pressure 158/98 H 07/06/22 13:58 Blood Pressure Position Sitting 07/06/22 13:58 Pulse Oximetry 99 07/06/22 13:58 Oxygen Delivery Method Room Air 07/06/22 13:58 Oxygen Flow Rate 0 07/06/22 13:58 Pain Level 10 07/06/22 14:01 PAWSS Have you Been Recently Intoxicated or Drunk Within the Last 30 days?: No Have you Ever Experienced Previous Episodes of Alcohol Withdrawal?: No Have you ever Experienced Withdrawal Seizures?: No Have you ever Experienced Delirium Tremens(DT)s?: No Have you ever undergone Alcohol Rehabilitation Treatment (i.e, inpt ot outpatient treatment programs)?: No Have you ever Experienced Blackouts?: No Have you ever Combined Alcohol with other Downers within the last 90 days?: No Have you ever Combined Alcohol with any other Substance of Abuse during the last 90 days?: No Result: 0
== END 2022-07-06 15:26 | disposition home or self-care (01) ==
PROVIDERS: Emergency Provider Emergency Medicine; PCP Family Medicine
DX: S40.011A Contusion of right shoulder, initial encounter (principal); I25.10 Atherosclerotic heart disease of native coronary artery without angina pectoris; W18.40XA Slipping, tripping and stumbling without falling, unspecified, initial encounter; Y92.008 Other place in unspecified non-institutional (private) residence as the place of occurrence of the external cause
CPT/HCPCS: 99283; 73030; 73060; 99282

== ENCOUNTER → 2022-09-14 12:57 | Outpatient (BNVA) | payer OTHER, SELFPAY | PROVIDERS: PCP Family Medicine; Referring Provider Family Medicine; Visit Provider Student in an Organized Health Care Education/Training Program | DX: M19.011 Primary osteoarthritis, right shoulder (principal); M75.101 Unspecified rotator cuff tear or rupture of right shoulder, not specified as traumatic | CPT/HCPCS: 20610; 99204; 99213; J1030 ==

== ENCOUNTER 2022-11-10 07:06 | Emergency (ER) | payer OTHER, SELFPAY ==
[2022-11-10] VITALS (36 sets, daily range): BP systolic 121–154; BP diastolic 70–94; PULSE 60–68; RESP 13–23; TEMP 36.7; O2SAT 95–100
--- NOTE | 2022-11-10 07:15 | RT.EKG_ITS ---
APPROVED REPORT Exam: Resting ECG Reason for Exam: chest pain Patient Location: E HR:65 bpm ECG Measurements Heart Rate 65 AXIS FL 169 P 23 QRSd 91 QRS 2 QT 393 T 67 QTc 408 Conclusion Sinus rhythm...normal P axis, V-rate 60- 99 Physician: no stemi, stable
--- NOTE | 2022-11-10 07:15 | DI.CT_ITS ---
Exam(s) CT CAROTID NECK CTA EXAM: CT CAROTID NECK CTA CLINICAL HISTORY: neck and chest pain, diff swallowing. TECHNIQUE: Imaging Protocol: Axial CT angiography was performed with multi-slice acquisition and mu lti-planar and/or 3D reconstructions. CONTRAST MATERIAL: Intravenous: Omnipaque 350 Contrast volume:85 mL COMPARISON: CT CT THORAX ABDOMEN CTA from 04/08/2021 FINDINGS: CTA Neck W: Common Carotid: Right: No aneurysm, occlusion or significant stenosis. Left: No aneurysm, occlusion or significant stenosis. Mild atherosclerosis of the common carotid art jim. External Carotid: Right: No aneurysm, occlusion or significant stenosis. Left: No aneurysm, occlusion or significant stenosis. Mild atherosclerosis at the origin. Internal Carotid: Right: No aneurysm, occlusion or significant stenosis. Mild atherosclerosis at the origin of the rig ht internal carotid artery. Left: No aneurysm, occlusion or significant stenosis. Mild atherosclerosis at the origin of the left internal carotid artery. Vertebral Artery: Right: No aneurysm, occlusion or significant stenosis. Left: No aneurysm, occlusion or significant stenosis. Lung Apices: Normal. Bones: Age-appropriate degenerative changes are seen in the cervical spine. No acute fractures or alonzo bluxations are seen. Mucous retention cysts or polyps are seen in the maxillary sinuses bilaterally. There is mucosal thickening in the ethmoid air cells bilaterally. The mastoid air cells are clear. Soft Tissues: Mildly enlarged lymph nodes are seen in the neck bilaterally. No significantly enlarge d lymph nodes to suggest lymphadenopathy is seen. IMPRESSION: 1. Mild atherosclerosis. No occlusion or significant stenosis is seen on the CT angiography of the n ariel. 2. RADIATION DOSE DELIVERED: 326.67mGy.cm Total DLP 326.67mGy.cm Total DLP DATA REPOSITORY: All CT scans at this facility are submitted to the National Radiology Data Registry (NRDR) Dose Index Registry (DIR) with the [employer] ([employer]). RADIATION OPTIMIZATION: All CT scans at this facility use at least one of these dose optimization te chniques: automated exposure control; mA and/or kV adjustment per patient size (includes targeted exa ms where dose is matched to clinical indication); or iterative reconstruction.
--- NOTE | 2022-11-10 07:15 | DI.CT_ITS ---
Exam(s) CT THORAX CTA EXAM: CT THORAX CTA CLINICAL HISTORY: upper chest and neck pain. TECHNIQUE: Imaging Protocol: Axial CT angiography was performed with multi-slice acquisition and mu lti-planar and/or 3D reconstructions. CONTRAST MATERIAL: Intravenous: Omnipaque 350 contrast volume:100 mL COMPARISON: CT CT THORAX ABDOMEN CTA from 04/08/2021 FINDINGS: Tracheobronchial tree: Patent where visualized. Pulmonary parenchyma: No consolidation or dominant measurable mass. There is a stable 3 mm nodule in the periphery of the right lower lobe. There is dependent atelectasis in the lung bases. There is a 4 mm nodule in the periphery of the left lower lobe. Pulmonary Arteries: No evidence of filling defect to suggest pulmonary emboli. Mediastinum and Orin: No dominant adenopathy or fluid collection. The esophagus is unremarkable. Visualized thyroid gland: Unremarkable. Pleura: No effusion or pneumothorax. Heart: The heart is not dilated. Mild coronary artery calcification is present. No pericardial effus ion. Aorta: Thoracic aorta non-dilated. No evidence of dissection. Atherosclerosis is present. Upper abdomen: Cholelithiasis. Postsurgical changes are seen in the splenic flexure of the colon. There are stable bilateral renal cysts. No follow-up is recommended. Soft tissues: Unremarkable. Bones: Within normal limits for the patient's age. IMPRESSION: 1. No evidence of pulmonary embolism, thoracic aortic dissection or aneurysm. 2. 4 mm left lower lobe pulmonary nodule. In low risk patients, no routine follow-up is recommended. In high risk patients (history of smoking or other risk factors), an optional [address] scan of t he chest may be obtained. (Zully et al, 2017). 3. Findings were discussed with Dr. Francis at 9:54 a.m. on 11/10/2022. RADIATION DOSE DELIVERED: 491.03mGy.cm Total DLP 491.03mGy.cm Total DLP DATA REPOSITORY: All CT scans at this facility are submitted to the National Radiology Data Registry (NRDR) Dose Index Registry (DIR) with the [employer] ([employer]). RADIATION OPTIMIZATION: All CT scans at this facility use at least one of these dose optimization te chniques: automated exposure control; mA and/or kV adjustment per patient size (includes targeted exa ms where dose is matched to clinical indication); or iterative reconstruction.
--- NOTE | 2022-11-10 07:31 | ED.GENADUL_ITS ---
Discharge Plan Discharge Details Chief Complaint: Chest Pain Primary Care Provider: Rosi Rosario ED Provider: Yuriy Contreras Home Meds and New Rx's Prescriptions: No Action Metamucil 3.4 gram/5.4 gram powder 1 tbs PO BID cholecalciferol (vitamin D3) 1,000 unit capsule 1,000 unit PO DAILY meloxicam 15 mg tablet 15 mg PO DAILY Qty: 30 0RF cyanocobalamin (vitamin B-12) 500 mcg lozenge 500 mcg PO DAILY turmeric root extract 500 mg capsule 500 mg PO DAILY zinc 50 mg tablet 50 mg PO DAILY [id number]-bhvcglbz-edum 12.5-625-125 mg capsule 1 cap PO DAILY acetaminophen [Tylenol] 325 mg tablet 325 mg PO ONCE PRN omega-3 fatty acids-fish oil 1 EACH capsule 1 cap PO DAILY amlodipine 5 mg tablet 5 mg PO DAILY Qty: 90 4RF doxycycline hyclate 50 mg capsule 50 mg PO DAILY Qty: 90 3RF famotidine 20 mg tablet 20 mg PO BID Qty: 180 3RF Medical Decision Making 77-year-old male with a past medical history of coronary artery disease, peptic ulcer disease, presents today for chest pain and shortness of breath. Patient states that last night he developed mild neck pain in the front and back of his neck, and mild neck stiffness. He states that it is caused some difficulty swallowing. He denies any fever or chills though. Additionally this morning for the last hour he has also developed mild chest. Which comes and goes, it radiates to the right arm. He denies any tearing or ripping sensation. He denies any vomiting or diarrhea. He denies ever having any symptoms like this before. He denies any personal history of any heart attack in the past. No other complaints at this time. No headache, vision changes, or trauma. No shortness of breath. Physical exam is relatively equivocal/unremarkable. No redness or erythema or edema in the posterior oropharynx. No muffled or hot potato voice. No evidence of Ludewig's angina. In regards to his neck pain he does not demonstrate significant stiffness, maybe only minimal stiffness at best. However negative Kernig's and Brudzinski sign functionally. No carotid bruits. Thoracic exam otherwise unremarkable. Distal pulses intact. Differential is broad, viral etiology is on the differential, however cardiac etiology, atypical angina, or less likely but more concerning would be aortic or carotid dissection. Clinically the patient does not seem to demonstrate evidence of meningitis. He has no fever or chills. Negative Kernig's and Brudzinski's. I do not see an emergent indication for lumbar puncture at this time based on current clinical assessment. However, it does remain on the low but present end of the differential. We will start with screening labs to evaluate for reflections of infection with an ESR and CRP looking for white count. We will get CT imaging of the neck and chest to evaluate for aortic or arterial pathology. We will give IV Tylenol, gently rehydrate, monitor closely and reassess. Patient will be signed out to my colleague Francisca Francis for follow-up on labs and imaging and reassessment. HPI General Date/Time Provider Initiated Documentation: 11/10/22 07:15 . HPI Narrative: 77-year-old male with a past medical history of coronary artery disease, peptic ulcer disease, presents today for chest pain and shortness of breath. Patient states that last night he developed mild neck pain in the front and back of his neck, and mild neck stiffness. He states that it is caused some difficulty swallowing. He denies any fever or chills though. Additionally this morning for the last hour he has also developed mild chest. Which comes and goes, it radiates to the right arm. He denies any tearing or ripping sensation. He denies any vomiting or diarrhea. He denies ever having any symptoms like this before. He denies any personal history of any heart attack in the past. No other complaints at this time. No headache, vision changes, or trauma. No shortness of breath. Related Data Home Medications Medication Instructions Recorded Confirmed omega-3 fatty acids-fish oil 300 1 cap PO DAILY 10/04/12 11/10/22 mg-1,000 mg capsule cholecalciferol (vitamin D3) 25 1,000 unit PO DAILY 03/09/18 11/10/22 mcg (1,000 unit) capsule psyllium husk 3.4 gram/5.4 gram 1 tbs PO BID 03/09/18 11/10/22 oral powder (Metamucil) cyanocobalamin (vitamin B-12) 500 500 mcg PO DAILY 04/08/21 11/10/22 mcg lozenges acetaminophen 325 mg tablet 325 mg PO ONCE PRN 04/13/21 11/10/22 (Tylenol) calcium cdfmfhser-[id number]-uzah 1 cap PO DAILY 04/13/21 11/10/22 12.5 mg-625 mg-125 mg capsule turmeric root extract 500 mg 500 mg PO DAILY 04/13/21 11/10/22 capsule zinc 50 mg tablet 50 mg PO DAILY 04/13/21 11/10/22 amlodipine 5 mg tablet 5 mg PO DAILY #90 tab-caps 07/04/22 11/10/22 meloxicam 15 mg tablet 15 mg PO DAILY #30 tabs 08/03/22 11/10/22 doxycycline hyclate 50 mg capsule 50 mg PO DAILY #90 tab-caps 10/05/22 11/10/22 famotidine 20 mg tablet 20 mg PO BID Barretts esophagus 10/20/22 11/10/22 #180 tabs Previous Rx's Medication Instructions Recorded amlodipine 5 mg tablet 5 mg PO DAILY #90 tab-caps 07/04/22 meloxicam 15 mg tablet 15 mg PO DAILY #30 tabs 08/03/22 doxycycline hyclate 50 mg capsule 50 mg PO DAILY #90 tab-caps 10/05/22 famotidine 20 mg tablet 20 mg PO BID Barretts esophagus 10/20/22 #180 tabs Allergies Allergy/AdvReac Type Severity Reaction Status Date / Time morphine Allergy Severe THROAT Verified 11/10/22 07:16 SWELLING simvastatin AdvReac Unknown INTOLERANT Verified 11/10/22 07:16 General Stated Complaint: Chest Pain ARIES: 2 Review of Systems All systems reviewed & are unremarkable except as noted in HPI and below PFSH All Active Problems Arthritis of right glenohumeral joint (Acute) 40 mg corticosteroid injection 09/14/22 Right rotator cuff tear (Acute) Recurrent depression (Chronic) Essential hypertension (Acute 04/08/13) Generalized osteoarthrosis of multiple sites (Acute) right ankle Hyperlipidemia (Acute) Rosacea (Acute) Sensorineural hearing loss, bilateral (Acute 09/14/15) Incontinence of feces (Acute) Chronic insomnia (Acute) Arthritis of right acromioclavicular joint (Acute) Medical History Adenomatous polyp of colon s/p sigmoid resection for large polyp 2008 CAD (coronary artery disease) chest pain 2007- cath- nonobstructive Closed right ankle fracture DJD Dysphagia 2004- HH, esophageal ring and presbyesophagus History of elevated PSA History of left heart catheterization (~2007) non obstructive disease History of tobacco use quit 06/19/1979; smoked for 25 yrs Hx of sciatica Peptic ulcer disease 2004- H. pylori positive treated Raised prostate specific antigen Recurrent anxiety Surgical History Colonoscopy - [facility] (03/29/17) History of dilation of urethra History of esophagogastroduodenoscopy (EGD) (05/29/18) 05/29/18 - EGD - Dr Rome - focal intestinal metaplasia and active reflux, repeat 6 mos. Ranitidine BID. History of hemicolectomy RIGHT HEMICOLECTOMY, 02/25 OPEN HEMICOLECTOMY @ 40CM TO REMOVE TUBULAR ADENOMA COVERING 1/3 OF BOWEL WALL. Status post prostatectomy enlarged, no cancer per pt Urethral Dilation Sigmoid resection for polyps 2008 Family History Mother , age 81 Neoplasm Alzheimers disease Father , age 75 Heart disease Sister , age 71 Heart disease Alzheimers disease Sister , age 79 Heart disease Neoplasm Alzheimers disease Brother , age 52 Heart disease Brother , age 45 Heart disease Maternal Grandfather No problems noted. Paternal Grandfather No problems noted. Maternal Grandmother No problems noted. Paternal Grandmother No problems noted. FAMILY HISTORY Diabetes Sister , age 62 Neoplasm Heart disease Brother Heart disease Social History Smoking/Tobacco Use Status: Former Tobacco Use tobacco type: cigarettes Quit Date: 06/19/79 Pack-years: 20 Second Hand Exposure: Yes Smoking risk assessment performed?: Yes Alcohol Intake: current Alcohol Intake frequency: a few times a week Alcohol type: wine Drug use: Rarely Substance use type: marijuana Caregiver/Support person: No Household members: spouse Housing: house Number of Children: 3 Communication Needs: Hard of Hearing Do you need help understanding health information?: Often current occupation: Retired from [employer]. Pets and animals: No Sexually active: Yes Current gender identity: male What is your relationship status?: How often do you get together with friends or relatives?: twice per week Do you belong to any clubs or organized social groups?: no Panel score (0-1 are the most socially isolated patients): 1 What type of physical activity do you participate in: other Details: house hold chores Duration: > 90 minutes/day Frequency: 5-6 times per week [place]/Episcopal: No preference Do you feel safe at home: Yes Do you feel safe in your relationship?: Yes Additional Social history: Enjoys gardening, cutting firewood, snowshoeing. Exam Narrative Exam Narrative: 1.Const: Well-nourished, Well-developed, appearing stated age 2.Eyes: PERRL, no conjunctival injection, and symmetrical lids. 3.ENT: Atraumatic external nose and ears. Moist MM. Neck: Symmetric, trachea midline, No thyromegaly. No redness in the posterior oropharynx. No hot potato voice. No trismus or drooling. Patient demonstrates good movement of cervical neck. There is no nuchal rigidity, no nuchal tenderness. Patient is able to flex the neck without any difficulty but does have very mild pain with this. Negative Kernig's and Brudzinski sign. 4.CVS: +S1/S2, No murmurs or gallops. Peripheral pulses 2+ and equal in all extremities. Brisk capillary refill in all extremities. 5.RESP: Unlabored respiratory effort. Clear to auscultation bilaterally. No wheezes rales or rhonchi 6.GI: Soft, Nontender/Nondistended, No hepatosplenomegaly. No guarding or rebound. 7.MSK: Normocephalic/Atraumatic, Extremities w/o deformity or ttp No cyanosis or clubbing, Normal movement of all extremities 8.Skin: Warm, Dry. No rashes or lesions. 9.Neuro: placement secretary II-XII grossly intact. Sensation grossly intact, no focal neurologic deficits. 10.Psych: (AAO) x3. Appropriate mood and affect Course Vital Signs Vital signs: Vital Signs Temperature 36.7 C 11/10/22 07:12 Pulse 63 11/10/22 07:12 Respiratory Rate 20 11/10/22 07:12 Blood Pressure 151/83 H 11/10/22 07:12 Pulse Oximetry 100 11/10/22 07:12 Temperature 36.7 C 11/10/22 07:12 Temperature Source Skin 11/10/22 07:12 Pulse 63 11/10/22 07:12 Respiratory Rate 20 11/10/22 07:12 Respiratory Effort Normal 11/10/22 07:17 Blood Pressure 151/83 H 11/10/22 07:12 Blood Pressure Position Sitting 11/10/22 07:12 Pulse Oximetry 100 11/10/22 07:12 Oxygen Delivery Method Room Air 11/10/22 07:12 Oxygen Flow Rate 0 11/10/22 07:12 Pain Level 9 11/10/22 07:12
[2022-11-10 07:45] LABS: Abs Immature Grans 0.02 10^3/uL (0.0-0.06); Absolute Basophil Count 0.03 10^3/uL (0.0-0.2); Absolute Eosinophil Count 0.17 10^3/uL (0.0-0.7); Absolute Lymphocyte Count 2.03 10^3/uL (1.2-3.4); Absolute Monocyte Count 1.07 10^3/uL (0.1-0.8); Absolute Neutrophil Count 5.86 10^3/uL (1.2-6.7); Basophils % 0.3; Eosinophils % 1.9; HGB 14.8 g/dL (13.5-17.5); Immature Grans % 0.2; Lymphocytes % 22.1; MCH 34.2 pg (27.0-33.0); MCHC 35.2 % (32.0-36.0); MCV 97 fL (80-95); MPV 8.8 fL (8.0-11.0); Monocytes % 11.7; Neutrophils % 63.8; Platelet Count 203 10^3/uL (130-400); RBC 4.33 10^6/uL (4.36-5.78); RDW 12.1 % (11.8-14.1); RDW-SD 43.4 fL; WBC 9.18 10^3/uL (4.4-10.8)
[2022-11-10 07:51] LABS: ESR 19 mm/hr (0-20)
[2022-11-10] MEDS: Normal Saline 500 ML IV (07:52)
[2022-11-10] MEDS: ACETAMINOPHEN 1,000 MG/100 ML BTL 400 MG IVPB (07:53)
[2022-11-10 07:59] LABS: PTT Activated 24.8 sec (21.5-31.9); Prothrombin Time 10.5 sec (9.3-11.0)
[2022-11-10 08:00] LABS: C-Reactive Protein 2.87 mg/dL (0.0-0.3)
[2022-11-10 08:03] LABS: ALT 27 U/L (16-63); AST 22 U/L (15-37); Albumin 3.8 g/dL (3.4-5.0); Alkaline Phosphatase 68 U/L (46-116); BUN 11 mg/dL (7-18); CREATININE 0.7 mg/dL (0.70-1.30); Calcium 9.3 mg/dL (8.5-10.1); Chloride 101 mmol/L (98-107); Glucose 112 mg/dL (74-106); Potassium 4.4 mmol/L (3.5-5.1); Sodium 136 mmol/L (136-145); Total Protein 7.9 g/dL (6.4-8.2); Troponin I < 50 ng/L (<or=60)
--- NOTE | 2022-11-10 08:35 | ED.PROG_ITS ---
Date of service: 11/10/22 Time of Service: 08:00 Medical Decision Making 0800 --please see Dr. Contreras's note for initial presentation, exam and plan. Case endorsed to follow-up on labs and imaging and final disposition. Patient is a 77-year-old male with a history of hypertension, hyperlipidemia, coronary artery disease, former tobacco and alcohol abuse, GERD, peptic ulcer disease, dysphagia, anxiety, depression, BPH, prostatectomy, and hemicolectomy who presents for a complaint of difficulty swallowing, posterior headache and neck pain since last night with 2 episodes of brief chest pain today. Patient states he ate Post[place] salad and ribs for dinner last night. Patient states shortly after that he initially described symptoms of a sore throat but states there is no pain he just feels like he is having difficulty swallowing liquids. He states he has not eaten anything since onset of his symptoms at 8 PM last night. He states he attempted drinking water this morning but states he was unable to swallow it due to difficulty. He denies any pain with swallowing. He states since last night he has had posterior headache and diffuse neck pain posteriorly which she describes as aching and mostly pain with range of motion of his head. He denies any known injury. He denies any radiation of pain or paresthesias or weakness in his upper or lower extremities. Patient states while sitting at home today he had a few second period of burning substernal chest pain without radiation. He states 30 minutes ago while here in the emergency department he had another few second episode of burning substernal chest pain that then resolved. He reports he has not taken any medication for pain. He denies any known fever, blurry vision, difficulty breathing, nausea, vomiting, diarrhea, abdominal pain or urinary symptoms. Review of records notes that patient had a colonoscopy in 2012 which noted colon polyps and in 2016 which noted diverticula. Of note, he had an EGD twice in 2018 for a similar complaint of intermittent dysphagia with pathology consistent with acid reflux esophagitis. It had been recommended that he start taking a Pepcid twice daily at that time but on follow-up with general surgery in 2020 he had reported he had not taken it for 2 years. EKG on arrival has noted a rate of 65, sinus, normal intervals and no ischemic findings. Labs reviewed. Normal white blood cell count. CRP minimally elevated to 2.87. Normal ESR. Troponin negative. We will add a lipase. Repe at troponin pending. He has no tearing or ripping chest pain to suggest dissection. He has no sore throat or abnormal oropharyngeal findings to suggest pharyngitis or peritonsillar abscess. He has no fever, altered mental status or meningeal signs to suggest meningitis. Suspect his difficulty swallowing and burning chest pain likely secondary to his history of acid reflux esophagitis. Suspect of the posterior head and neck pain may be viscerosomatic pain in the setting of GERD or PUD. He is pending CT imaging of neck and chest. Will give a dose of IV Pepcid, IV Decadron and likely plan for GI cocktail and Carafate. 1130 --imaging reviewed and negative for acute findings. Repeat troponin negative. He has had no further chest pain. His CT chest does note a 4 mm left lower lobe nodule of which family has been informed. Case discussed with and daughters in the emergency department --discussed that his symptoms appear most likely consistent with an exacerbation of his reflux esophagitis. Patient and family is unsure if he is taking his Pepcid twice daily. If he is taking this, he can consider switching to a PPI. If he is not taking it, advised to take Pepcid twice daily. A prescription for Carafate sent electronically to his pharmacy. Also discussed that his posterior head and neck pain could be consistent with viscerosomatic pain pain. Advised to follow-up with his primary care doctor and general surgery for reevaluation. Usual and customary return precautions given prior to discharge. Medical Records Medical records reviewed: Yes I reviewed the patient's medical records. Imaging Data Radiologic Study: Radiologist's impression: CT CAROTID NECK CTA Findings were discussed with Dr. Francis at 9:54 a.m. on 11/10/2022. Dictated By: Ronnie Burgess M.D.? [id number] Ronnie Burgess M.D.11/10/22 0955 Transcribed By: Ronnie Burgess? Exam(s) CT CAROTID NECK CTA EXAM: ? CT CAROTID NECK CTA CLINICAL HISTORY: ? neck and chest pain, diff swallowing. ? TECHNIQUE:? Imaging Protocol:? Axial CT angiography was performed with multi- slice acquisition and multi-planar and/or 3D reconstructions. CONTRAST MATERIAL:? Intravenous: Omnipaque 350 Contrast volume:85 mL COMPARISON:? CT CT THORAX ? ABDOMEN CTA from 04/08/2021 FINDINGS: CTA Neck W: Common Carotid: Right:? No aneurysm, occlusion or significant stenosis. Left:? No aneurysm, occlusion or significant stenosis. Mild atherosclerosis of the common carotid artery. External Carotid: Right:? No aneurysm, occlusion or significant stenosis. Left:? No aneurysm, occlusion or significant stenosis. Mild atherosclerosis at the origin. Internal Carotid: Right:? No aneurysm, occlusion or significant stenosis. Mild atherosclerosis at the origin of the right internal carotid artery. Left:? No aneurysm, occlusion or significant stenosis. Mild atherosclerosis at the origin of the left internal carotid artery. Vertebral Artery: Right:? No aneurysm, occlusion or significant stenosis. Left:? No aneurysm, occlusion or significant stenosis. Lung Apices: Normal. Bones: Age-appropriate degenerative changes are seen in the cervical spine.? No acute fractures or subluxations are seen.? Mucous retention cysts or polyps are seen in the maxillary sinuses bilaterally.? There is mucosal thickening in the ethmoid air cells bilaterally.? The mastoid air cells are clear.? Soft Tissues: Mildly enlarged lymph nodes are seen in the neck bilaterally.? No significantly enlarged lymph nodes to suggest lymphadenopathy is seen.? IMPRESSION: 1. Mild atherosclerosis.? No occlusion or significant stenosis is seen on the CT angiography of the neck. CT THORAX CTA CLINICAL HISTORY: ? upper chest and neck pain. TECHNIQUE:? Imaging Protocol:? Axial CT angiography was performed with multi- slice acquisition and multi-planar and/or 3D reconstructions. CONTRAST MATERIAL:? Intravenous: Omnipaque 350 contrast volume:100 mL COMPARISON:? CT CT THORAX ? ABDOMEN CTA from 04/08/2021 FINDINGS: Tracheobronchial tree: Patent where visualized. Pulmonary parenchyma: No consolidation or dominant measurable mass. There is a stable 3 mm nodule in the periphery of the right lower lobe.? There is dependent atelectasis in the lung bases.? There is a 4 mm nodule in the periphery of the left lower lobe.? Pulmonary Arteries: No evidence of filling defect to suggest pulmonary emboli. Mediastinum and Orin: No dominant adenopathy or fluid collection.? The esophagus is unremarkable.? Visualized thyroid gland: Unremarkable.? Pleura: No effusion or pneumothorax. Heart: The heart is not dilated. Mild coronary artery calcification is present.? No pericardial effusion.? Aorta: Thoracic aorta non-dilated. No evidence of dissection. Atherosclerosis is present. Upper abdomen:? Cholelithiasis.? Postsurgical changes are seen in the splenic flexure of the colon.? There are stable bilateral renal cysts.? No follow-up is recommended. Soft tissues: Unremarkable.? Bones: Within normal limits for the patient's age. IMPRESSION: 1. No evidence of pulmonary embolism, thoracic aortic dissection or aneurysm.? 2. 4 mm left lower lobe pulmonary nodule.? In low risk patients, no routine follow-up is recommended.? In high risk patients (history of smoking or other risk factors), an optional [address] scan of the chest may be obtained.? (Zully et al, 2017). Lab Data Lab results reviewed: Yes I reviewed the patient's lab results. Labs: Laboratory Tests Range/Units 11/10/22 11/10/22 11/10/22 07:28 07:28 07:28 WBC (4.4-10.8) 10^3/uL RBC (4.36-5.78) 10^6/uL Hgb (13.5-17.5) g/dL Hct (40.0-50.0) % MCV (80-95) fL MCH (27.0-33.0) pg MCHC (32.0-36.0) % RDW (11.8-14.1) % Plt Count (130-400) 10^3/uL MPV (8.0-11.0) fL Immature Gran % Neutrophils % Lymphocytes % Monocytes % Eosinophils % Basophils % Nucleated RBC % (0.0-0.3) % Absolute Neutrophils (1.2-6.7) 10^3/uL Absolute Lymphocytes (1.2-3.4) 10^3/uL Absolute Monocytes (0.1-0.8) 10^3/uL Absolute Eosinophils (0.0-0.7) 10^3/uL Absolute Basophils (0.0-0.2) 10^3/uL ESR (0-20) mm/hr 19 PT (9.3-11.0) sec INR (0.9-1.1) APTT (21.5-31.9) sec VBG Lactate (0.6-1.4) mmol/L Sodium (136-145) mmol/L Potassium (3.5-5.1) mmol/L Chloride (98-107) mmol/L Carbon Dioxide (21.0-32.0) mmol/L Anion Gap (3-11) mmol/L BUN (7-18) mg/dL Creatinine (0.70-1.30) mg/dL Est GFR (CKD-EPI 2020) (mL/min/1.73m2) Glucose (74-106) mg/dL Calcium (8.5-10.1) mg/dL Total Bilirubin (0.2-1.0) mg/dL AST (15-37) U/L ALT (16-63) U/L Alkaline Phosphatase (46-116) U/L Troponin I (<or=60) ng/L C-Reactive Protein (0.0-0.3) mg/dL 2.87 H Total Protein (6.4-8.2) g/dL Albumin (3.4-5.0) g/dL Lipase (16-77) U/L 59 Range/Units 11/10/22 11/10/22 11/10/22 07:38 07:38 07:38 WBC (4.4-10.8) 10^3/uL 9.18 RBC (4.36-5.78) 10^6/uL 4.33 L Hgb (13.5-17.5) g/dL 14.8 Hct (40.0-50.0) % 42.0 MCV (80-95) fL 97 H MCH (27.0-33.0) pg 34.2 H MCHC (32.0-36.0) % 35.2 RDW (11.8-14.1) % 12.1 Plt Count (130-400) 10^3/uL 203 MPV (8.0-11.0) fL 8.8 Immature Gran % 0.2 Neutrophils % 63.8 Lymphocytes % 22.1 Monocytes % 11.7 Eosinophils % 1.9 Basophils % 0.3 Nucleated RBC % (0.0-0.3) % 0.0 Absolute Neutrophils (1.2-6.7) 10^3/uL 5.86 Absolute Lymphocytes (1.2-3.4) 10^3/uL 2.03 Absolute Monocytes (0.1-0.8) 10^3/uL 1.07 H Absolute Eosinophils (0.0-0.7) 10^3/uL 0.17 Absolute Basophils (0.0-0.2) 10^3/uL 0.03 ESR (0-20) mm/hr PT (9.3-11.0) sec INR (0.9-1.1) APTT (21.5-31.9) sec VBG Lactate (0.6-1.4) mmol/L 1.0 Sodium (136-145) mmol/L 136 Potassium (3.5-5.1) mmol/L 4.4 Chloride (98-107) mmol/L 101 Carbon Dioxide (21.0-32.0) mmol/L 28.0 Anion Gap (3-11) mmol/L 7.0 BUN (7-18) mg/dL 11 Creatinine (0.70-1.30) mg/dL 0.7 Est GFR (CKD-EPI 2020) (mL/min/1.73m2) 94.90 Glucose (74-106) mg/dL 112 H Calcium (8.5-10.1) mg/dL 9.3 Total Bilirubin (0.2-1.0) mg/dL 1.0 AST (15-37) U/L 22 ALT (16-63) U/L 27 Alkaline Phosphatase (46-116) U/L 68 Troponin I (<or=60) ng/L < 50 C-Reactive Protein (0.0-0.3) mg/dL Total Protein (6.4-8.2) g/dL 7.9 Albumin (3.4-5.0) g/dL 3.8 Lipase (16-77) U/L Range/Units 11/10/22 11/10/22 07:38 10:45 WBC (4.4-10.8) 10^3/uL RBC (4.36-5.78) 10^6/uL Hgb (13.5-17.5) g/dL Hct (40.0-50.0) % MCV (80-95) fL MCH (27.0-33.0) pg MCHC (32.0-36.0) % RDW (11.8-14.1) % Plt Count (130-400) 10^3/uL MPV (8.0-11.0) fL Immature Gran % Neutrophils % Lymphocytes % Monocytes % Eosinophils % Basophils % Nucleated RBC % (0.0-0.3) % Absolute Neutrophils (1.2-6.7) 10^3/uL Absolute Lymphocytes (1.2-3.4) 10^3/uL Absolute Monocytes (0.1-0.8) 10^3/uL Absolute Eosinophils (0.0-0.7) 10^3/uL Absolute Basophils (0.0-0.2) 10^3/uL ESR (0-20) mm/hr PT (9.3-11.0) sec 10.5 INR (0.9-1.1) 1.0 APTT (21.5-31.9) sec 24.8 VBG Lactate (0.6-1.4) mmol/L Sodium (136-145) mmol/L Potassium (3.5-5.1) mmol/L Chloride (98-107) mmol/L Carbon Dioxide (21.0-32.0) mmol/L Anion Gap (3-11) mmol/L BUN (7-18) mg/dL Creatinine (0.70-1.30) mg/dL Est GFR (CKD-EPI 2020) (mL/min/1.73m2) Glucose (74-106) mg/dL Calcium (8.5-10.1) mg/dL Total Bilirubin (0.2-1.0) mg/dL AST (15-37) U/L ALT (16-63) U/L Alkaline Phosphatase (46-116) U/L Troponin I (<or=60) ng/L < 50 C-Reactive Protein (0.0-0.3) mg/dL Total Protein (6.4-8.2) g/dL Albumin (3.4-5.0) g/dL Lipase (16-77) U/L ECG Data Attestation: I personally reviewed and interpreted this ECG (s) as follows: Interpretation: Rate of 65, sinus, normal intervals, no STEMI. Sign Out Sign Out Data: Sign Out Comment: Chest pain, neck pain. Differential is broad, follow-up on CT, imaging, cardiac work-up. Last updated by Yuriy Contreras DO at 11/10/22 08:06 Discharge Plan Disposition Patient Disposition: Home Condition: Improving Discharge Details Clinical Impression: Dysphagia, Burning chest pain, Cervicalgia Primary Care Provider: Rosi Rosario ED Provider: Francisca Francis Home Meds and New Rx's Prescriptions: New sucralfate [Carafate] 1 gram tablet 1 gm PO QACHS Qty: 14 0RF Continued Metamucil 3.4 gram/5.4 gram powder 1 tbs PO BID cholecalciferol (vitamin D3) 1,000 unit capsule 1,000 unit PO DAILY meloxicam 15 mg tablet 15 mg PO DAILY Qty: 30 0RF cyanocobalamin (vitamin B-12) 500 mcg lozenge 500 mcg PO DAILY turmeric root extract 500 mg capsule 500 mg PO DAILY zinc 50 mg tablet 50 mg PO DAILY ofzuedb-xtludhjm-ezvq 12.5-625-125 mg capsule 1 cap PO DAILY acetaminophen [Tylenol] 325 mg tablet 325 mg PO ONCE PRN omega-3 fatty acids-fish oil 1 EACH capsule 1 cap PO DAILY amlodipine 5 mg tablet 5 mg PO DAILY Qty: 90 4RF doxycycline hyclate 50 mg capsule 50 mg PO DAILY Qty: 90 3RF famotidine 20 mg tablet 20 mg PO BID Qty: 180 3RF Discharge Instructions Instructions: Chest Pain (ED), Cervical Strain (ED), Diet for Stomach Ulcers and Gastritis (ED), GERD (Gastroesophageal Reflux Disease) (ED), Neck Pain (ED) Additional Instructions: Your blood tests EKG and imaging today are reassuring and show no evidence of acute concerning or significant findings. Your symptoms appear likely consistent with your history of reflux esophagitis. This can be commonly triggered by foods such as spicy, citrus, high-fat, high sugar, chocolate, peppermint, alcohol or smoking. Stress can also induce or worsen the symptoms. It is important to avoid these foods while you are having symptoms. If you are not already taking your famotidine 20 mg twice daily, start taking th is tomorrow. If you are already taking this medication, you can consider switching to another uxed-zii-ciprzjp medication such as Prilosec, Prevacid or Nexium and take once daily as directed. A prescription for Carafate which is a medication that can coat your stomach and help with your symptoms has been sent electronically to your pharmacy to take as directed. Follow-up with your primary care doctor within the next week for reevaluation. Call the general surgery office to schedule a follow-up appointment for reevaluation within the next 1 to 2 weeks and to discuss whether you may need a repeat upper endoscopy. Return immediately to the emergency department if you develop any worsening or new concerning symptoms. Referrals: Aakash Burgess MD [ [facility] STAFF PHYSICIAN] - Discharge Data Discharge Date/Time-TO BE ENTERED AT DEPARTURE: 11/10/22 11:46 Discharge Physician: Francisca Francis
[2022-11-10] MEDS: Normal Saline Flush 10 ML SYR IJ (09:04)
[2022-11-10] MEDS: Normal Saline - Diluent 50 ML VIAL 100 ML IJ (09:05)
[2022-11-10] MEDS: Omnipaque 350 MG/ML 500 ML BTL-Imaging package 85 ML IJ ×2 (09:10→09:29)
[2022-11-10 09:20] LABS: Lipase 59 U/L (16-77)
[2022-11-10] MEDS: Omnipaque 350 MG/ML 500 ML BTL-Imaging package 100 ML IJ (09:38)
[2022-11-10] MEDS: Normal Saline - Diluent 50 ML VIAL IJ (09:39)
[2022-11-10] MEDS: Normal Saline 250 ML IV (09:54)
[2022-11-10] MEDS: Dexamethasone 10 MG/ML VIAL IVP (09:55)
[2022-11-10] MEDS: Famotidine 20 MG/2 ML VIAL IVP (09:57)
[2022-11-10] MEDS: Sucralfate 1 GM TAB PO (10:05)
[2022-11-10] MEDS: Ketorolac 30 MG/ML VIAL IVP (11:03)
[2022-11-10 11:09] LABS: Troponin I < 50 ng/L (<or=60)
== END 2022-11-10 11:46 | disposition home or self-care (01) ==
PROVIDERS: Student in an Organized Health Care Education/Training Program; Emergency Provider Physician Assistant; PCP Family Medicine
DX: R07.9 Chest pain, unspecified (principal); J02.9 Acute pharyngitis, unspecified; R06.02 Shortness of breath; I25.10 Atherosclerotic heart disease of native coronary artery without angina pectoris; M54.2 Cervicalgia; R13.10 Dysphagia, unspecified
CPT/HCPCS: 36415; 70498; 71275; 80053; 83690; 85652; 93005; 96361; 96374; 96375; 99285; 83605; 84484; 85025; 85610; 85730; 86140; 93010; 99284; J0131; J1100; J1885

== ENCOUNTER → 2022-11-23 12:51 | Outpatient (BNVA) | payer OTHER, SELFPAY | PROVIDERS: PCP Family Medicine; Referring Provider Family Medicine; Visit Provider Student in an Organized Health Care Education/Training Program | DX: M75.101 Unspecified rotator cuff tear or rupture of right shoulder, not specified as traumatic (principal); M19.011 Primary osteoarthritis, right shoulder | CPT/HCPCS: 99213 ==

== ENCOUNTER → 2022-11-29 12:44 | Outpatient (BNVA) | payer OTHER, SELFPAY | PROVIDERS: PCP Family Medicine; Referring Provider Family Medicine; Visit Provider Surgery | DX: R13.10 Dysphagia, unspecified (principal) | CPT/HCPCS: 99213 ==

== ENCOUNTER 2022-12-07 09:03 | Day surgery (SDC) | payer OTHER, SELFPAY ==
--- NOTE | 2022-12-07 08:23 | W.ANESPRE ---
General Info Date of Service Date Performed: 12/07/22 Height: 5 ft 6 in Weight: 69.626 kg Body Mass Index (BMI): 24.7 Surgical Procedure: Operation Date: 12/07/22 11:35 Proposed Procedure Side Surgeon p Gastroscopy with Biopsy, Possible Balloon Dilation Melony Elkins MD Meds Allergies and Home Medications Allergies Allergy/AdvReac Type Severity Reaction Status Date / Time morphine Allergy Severe THROAT Verified 12/07/22 09:20 SWELLING simvastatin AdvReac Unknown INTOLERANT Verified 12/07/22 09:20 Home Medication Medication Instructions Recorded omega-3 fatty acids-fish oil 300 1 cap PO DAILY 10/04/12 mg-1,000 mg capsule cholecalciferol (vitamin D3) 25 1,000 unit PO DAILY 03/09/18 mcg (1,000 unit) capsule psyllium husk 3.4 gram/5.4 gram 1 tbs PO BID 03/09/18 oral powder (Metamucil) cyanocobalamin (vitamin B-12) 500 500 mcg PO DAILY 04/08/21 mcg lozenges acetaminophen 325 mg tablet 325 mg PO ONCE PRN 04/13/21 (Tylenol) calcium deqvodjdn-qceozvuf-zpev 1 cap PO DAILY 04/13/21 12.5 mg-625 mg-125 mg capsule turmeric root extract 500 mg 500 mg PO DAILY 04/13/21 capsule zinc 50 mg tablet 50 mg PO DAILY 04/13/21 amlodipine 5 mg tablet 5 mg PO DAILY #90 tab-caps 07/04/22 meloxicam 15 mg tablet 15 mg PO DAILY #30 tabs 08/03/22 famotidine 20 mg tablet 20 mg PO BID Barretts esophagus 10/20/22 #180 tabs doxycycline hyclate 50 mg capsule 50 mg PO DAILY 12/06/22 Current Visit Medications: Current Medications Generic Name Dose Route Start Last Admin Trade Name Freq PRN Reason Stop Dose Admin Ringer's Solution 1,000 mls @ 80 mls/hr 12/07/22 06:00 IV 01/05/23 23:59 [facility]ION [facility] IV Miscellaneous Supplies 1 each 12/07/22 06:00 Iv Access IV 01/05/23 23:59 DIRECTED YUE Ondansetron HCl 4 mg 12/07/22 06:37 Ondansetron 4 Mg/2 Ml Vial IVP 07/21/23 06:36 Q4H PRN PRN Nausea / Vomiting Sodium Chloride 0 ml 12/07/22 06:00 Normal Saline Flush 10 Ml Syr IV 01/05/23 23:59 PRN PRN Sodium Chloride 0 ml 12/07/22 06:00 Normal Saline 10 Ml Vial IJ 01/05/23 23:59 DIRECTED PRN Sterile Water 0 ml 12/07/22 06:00 Water,Injection,Sterile 10 Ml Vial IJ 01/05/23 23:59 DIRECTED PRN PFSH Active Problems Active Problems: Problem Status Onset Code Recurrent depression Dysphagia Essential hypertension 04/08/13 I10 Generalized osteoarthrosis of multiple sites M15.9 Hyperlipidemia E78.5 Rosacea L71.9 Sensorineural hearing loss, bilateral 09/14/15 H90.3 Incontinence of feces R15.9 Chronic insomnia F51.04 Arthritis of right acromioclavicular joint M19.011 Right rotator cuff tear M75.101 Arthritis of right glenohumeral joint M19.011 Burning chest pain R07.89 Cervicalgia M54.2 Medical History Medical History Adenomatous polyp of colon s/p sigmoid resection for large polyp 2008 CAD (coronary artery disease) chest pain 2007- cath- nonobstructive Closed right ankle fracture DJD History of elevated PSA History of left heart catheterization (~2007) non obstructive disease History of tobacco use quit 06/19/1979; smoked for 25 yrs Hx of sciatica Peptic ulcer disease 2004- H. pylori positive treated Raised prostate specific antigen Recurrent anxiety Surgical History Surgical History Colonoscopy - MAC (03/29/17) History of dilation of urethra History of esophagogastroduodenoscopy (EGD) (05/29/18) 05/29/18 - EGD - Dr Rome - focal intestinal metaplasia and active reflux, repeat 6 mos. Ranitidine BID. History of hemicolectomy RIGHT HEMICOLECTOMY, 02/25 OPEN HEMICOLECTOMY @ 40CM TO REMOVE TUBULAR ADENOMA COVERING 1/3 OF BOWEL WALL. Status post prostatectomy enlarged, no cancer per pt Urethral Dilation Sigmoid resection for polyps 2008 Tobacco Smoking/Tobacco Use Status: Former Tobacco Use Passive smoking exposure: Yes Second hand exposure: Yes Alcohol Alcohol Intake: current Alcohol intake frequency: a few times a week Alcohol type: wine Substance Use Substance use: Rarely Substance use type: marijuana Vital Signs and Lab Results Vital Signs Most Recent Vital Signs in EMR: Temp Pulse Resp BP Pulse Ox 36.7 C 65 16 118/90 97 12/07/22 09:26 12/07/22 09:26 12/07/22 09:26 12/07/22 09:26 12/07/22 09:26 Lab Results Blood Type / Crossmatch: No Data to Display Complete Blood Count: White Blood Count 9.18 10^3/uL (4.4-10.8) 11/10/22 07:38 Red Blood Count 4.33 10^6/uL (4.36-5.78) L 11/10/22 07:38 Hemoglobin 14.8 g/dL (13.5-17.5) 11/10/22 07:38 Hematocrit 42.0 % (40.0-50.0) 11/10/22 07:38 Platelet Count 203 10^3/uL (130-400) 11/10/22 07:38 Venous Blood Lactate 1.0 mmol/L (0.6-1.4) 11/10/22 07:38 Complete Metabolic Panel: Sodium 136 mmol/L (136-145) 11/10/22 07:38 Potassium 4.4 mmol/L (3.5-5.1) 11/10/22 07:38 Chloride 101 mmol/L (98-107) 11/10/22 07:38 Carbon Dioxide 28.0 mmol/L (21.0-32.0) 11/10/22 07:38 BUN 11 mg/dL (7-18) 11/10/22 07:38 Creatinine 0.7 mg/dL (0.70-1.30) 11/10/22 07:38 Est GFR (CKD-EPI 2020) 94.90 (mL/min/1.73m2) 11/10/22 07:38 Calcium 9.3 mg/dL (8.5-10.1) 11/10/22 07:38 Albumin 3.8 g/dL (3.4-5.0) 11/10/22 07:38 Glucose 112 mg/dL (74-106) H 11/10/22 07:38 C-Reactive Protein 2.87 mg/dL (0.0-0.3) H 11/10/22 07:28 Liver Function Panel: Alanine Aminotransferase (ALT/SGPT) 27 U/L (16-63) 11/10/22 07:38 Aspartate Amino Transf (AST/SGOT) 22 U/L (15-37) 11/10/22 07:38 Coagulation Panel: INR International Normalized Ratio 1.0 (0.9-1.1) 11/10/22 07:38 Prothrombin Time 10.5 sec (9.3-11.0) 11/10/22 07:38 Activated Partial Thromboplast Time 24.8 sec (21.5-31.9) 11/10/22 07:38 Cardiac Panel: Troponin I < 50 ng/L (<or=60) 11/10/22 Arterial Blood Gas: No Data to Display Venous Blood Gas: No Data to Display Pancreas Panel: Lipase 59 U/L (16-77) 11/10/22 07:28 Thyroid Panel: No Data to Display Infectious Disease: No Data to Display Blood Cultures: No Data to Display Toxicology Panel: No Data to Display Imaging and Studies Imaging and Studies Study information below may be from another EMR and interpreted by another provider. Please see original notes in EMR for more complete details. EKG Summary: 11/08: sinus. Carotid Artery Summary:: CT neck, 11/08: mild atherosclerosis, no occlusion or sig stenosis. Anesthesia Assessment and Plan Anesthesia History Personal History: No History of Anesthesia Complications Family History: No Family History of Anesthesia Complications Exercise Tolerance Exercise Tolerance: Metabolic Equivalents>4 Cardiac & Pulmonary Exam Cardiac Exam: Normal S1/S2 Heart Sounds Pulmonary Exam: Clear Bilateral Breath Sounds Implantable Cardiac Device Does patient have a Pacemaker or an ICD?: No Airway Exam Known Difficult Airway: No Mallampati Class: 3 Mouth Opening: Narrow (< 3cm) Thyromental Distance: Less than 3 cm Neck Range of Motion: Limited ROM Neck Circumference: Normal Teeth Condition: Normal Dentition ASA Classification ASA Score: ASA 2 Emergency Case?: No NPO Status NPO Status: NPO Clears >2 hours, Solids >8 hours Anesthesia Plan Resuscitation Status: Full Code Anesthesia Technique: General Anesthesia Airway Planned: Natural Airway Monitors Used: Standard Monitors Preoperative Comments:: 77 yo male for EGD. Sig PMHx: HTN (amlodipine), non-obstructive CAD (no home ntg), neck pain, dysphagia/GERD (famotidine), anxiety/depression, s/p hemicolectomy, s/p prostatectomy, former smoker, occ EtOH. Previous Anes: - colo, prop, natural airway, no issues. - EGD, prop (50 mg and gtt), natural airway, no issues. - EGD, lidocaine swallow, prop, natural airway, no issues.
[2022-12-07 09:26] VITALS: BP 118/90; PULSE 65; RESP 16; TEMP 36.7; O2SAT 97
[2022-12-07] MEDS: Lactated Ringers 1,000 ML 80 ML IV (09:46)
[2022-12-07 10:08] VITALS: BMI 24.7
--- NOTE | 2022-12-07 10:57 | W.PM.PROGNOT ---
Date of Service Date of service: 12/07/22 Time of Service: 10:57 Assessment and Plan Assessment and plan (1) Dysphagia: Status: Acute Assessment and plan: Mr. Odell is a pleasant 77-year-old gentleman with dysphagia.? He had an episode which woke him up from sleep.? He felt like his throat was swollen shut.? At the time he was also having some neck pain.? He had a cardiac work-up and a CT scan of the neck and chest.? Both were unremarkable.? 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 He had been taking Pepcid and then at some point stopped it.? He is now back on on Pepcid 20 mg twice a day.? He finished a week of Carafate.? We discussed doing another upper endoscopy to look for scarring around the distal esophagus.? I reviewed the procedure in detail with him as well as the complications.? He asked good questions and had a good understanding of the complications.? Risks, benefits and complications have been reviewed. Complications include but are not limited to bleeding, pain, perforation, sore throat, aspiration, and adverse reaction to the medications.? Questions were entertained and answered to their satisfaction and they wished to proceed. No guarantees were given or implied. Proceed with EGD and possible dilatation Subjective Subjective Interval history since last seen: I saw Mr. Odell in same-day surgery today prior to his procedure. He is doing well. He has no questions about the procedure. He does not have any new symptoms. He has had no chest pain or shortness of breath since I saw him. No upper respiratory symptoms. We reviewed the procedure, the risks and benefits and I answered his questions to his satisfaction. He seemed to understand the procedure itself as well as the complications. Exam Const General: cooperative, healthy appearing, comfortable and no acute distress Nutritional Appearance: average body habitus Orientation: alert and oriented x3 HENMT Head: normocephalic and atraumatic Resp Effort & Inspection: normal respiratory effort Auscultation: clear to auscultation bilaterally Cardio Rate: regular rate Rhythm: regular rhythm Objective Last Vital Signs Temp 98.1 F 12/07/22 09:26 Pulse 65 12/07/22 09:26 Resp 16 12/07/22 09:26 BP 118/90 12/07/22 09:26 Pulse Ox 97 12/07/22 09:26 Time Spent with Patient Time Spent with Patient: <25 minutes Time was spent: counseling the patient
--- NOTE | 2022-12-07 11:04 | PDOC.DSDIS_ITS ---
Date of service: 12/07/22 Time of Service: 11:34 Discharge Plan Disposition Patient Disposition: Home Condition: Stable Discharge Details Reason For Visit: dysphagia Attending Provider: Melony Elkins Primary Care Provider: Rosi Rosario Home Meds and New Rx's Prescriptions: New famotidine [Pepcid] 40 mg tablet 40 mg PO BID Qty: 60 0RF Continued Metamucil 3.4 gram/5.4 gram powder 1 tbs PO BID cholecalciferol (vitamin D3) 1,000 unit capsule 1,000 unit PO DAILY meloxicam 15 mg tablet 15 mg PO DAILY Qty: 30 0RF cyanocobalamin (vitamin B-12) 500 mcg lozenge 500 mcg PO DAILY turmeric root extract 500 mg capsule 500 mg PO DAILY zinc 50 mg tablet 50 mg PO DAILY nflwpcb-slsdzldr-nggk 12.5-625-125 mg capsule 1 cap PO DAILY acetaminophen [Tylenol] 325 mg tablet 325 mg PO ONCE PRN omega-3 fatty acids-fish oil 1 EACH capsule 1 cap PO DAILY amlodipine 5 mg tablet 5 mg PO DAILY Qty: 90 4RF doxycycline hyclate 50 mg capsule 50 mg PO DAILY Patient Comments: TAKE ONE CAPSULE BY MOUTH EVERY DAY Discontinued famotidine 20 mg tablet 20 mg PO BID Qty: 180 3RF Discharge Instructions Instructions: Gastritis (DC), Diet for Stomach Ulcers and Gastritis (ED), Esophagitis (DC) Additional Instructions: Findings: inflammation of the stomach and esophagus Follow up: 2 weeks Please call if you develop: fevers >101.5 Nausea or Vomiting Abdominal pain that is not transient Rectal bleeding that is more then a tbsp A hard abdomen and inability to pass gas DAY SURGERY UNIT POST ENDOSCOPY INSTRUCTIONS Instructions for everyone who is given Anesthesia: For your safety, please do the following for the next 24 Hours: a. Do not drive or operate dangerous equipment b. Do not drink alcohol beverages or use any recreational drugs for the first 24 hours or while taking pain medications. The medications in your body may have a reaction that can be dangerous. c. Do not make any important decisions or sign any important papers 1. Generally there are no restrictions on your activity after a day or so has gone by, but you may feel a bit fatigued for a few days. 2. After you arrive home you may have a light meal and return to a normal diet as you can tolerate it without feeling sick to your stomach. 3. After surgery, you may feel pain or discomfort. This should be only transient, but if it persists please contact your doctor. 4. If there are any questions regarding the findings of your procedure, please feel free to contact your doctor. 6. If you are unable to contact your doctor with a problem, contact the hospital at [phone]. 7. Continue all your regular medications unless directed otherwise. I understand the above instructions and have no questions. Signature of Patient or Responsible Adult Escort Date/Time Name of Responsible Adult Escort Signature of Nurse Date/Time Referrals: Melony Elkins MD [ [facility] STAFF PHYSICIAN] - 12/21/22 1:45 am Activity:: Activity as Tolerated Diet:: see above Discharge Orders Discharge Orders: Discharge Order (Routine); Ordered 12/07/22 Ordered By: Melony Elkins DS: Diagnosis Discharge Diagnosis (1) Dysphagia: Status: Acute Asessment and Plan: Patient is seen and examined after their endoscopy. Patient has minimal sore throat. They have been able to tolerate liquids. They do not have any Nausea or Vomiting. They are not having any chest pain or shortness of breath. They have been able to pass gas and are not having any abdominal pain or distention. they have not vomited any blood. The vital signs have been stable-see nursing notes. We discussed findings on their endoscopy We reviewed the importance of lifestyle modifications- see diet recommendations We reviewed any new medications that the patient may be prescribed- see medicine reconciliation. Patient will either be sent a letter with the biopsy results or follow up in the office- see discharge instructions Patient was given explicit instructions for emergency follow up post endoscopy- see discharge instructions Patient verbalized understanding and was discharged in stable and satisfactory condition. See nursing notes. (2) Gastritis: Status: Acute (3) Esophagitis: Status: Acute
--- NOTE | 2022-12-07 11:04 | W.PM.ENDDOP ---
Date of service: 12/07/22 Time of Service: 11:30 Endoscopy Report DATE OF PROCEDURE: 12/07/22 PRE-OP DIAGNOSIS: Dysphagia POST-OP DIAGNOSIS: other (Gastritis, esophagitis) PROCEDURE: EGD with biopsies SURGEON: Melony Elkins ANESTHESIA TYPE: General:No Airway ESTIMATED BLOOD LOSS: 2 PATHOLOGY: other (Bx of stomach, and GE junction) COMPLICATIONS: None DISPOSITION: same day INDICATIONS: Mr. Odell is a pleasant 77-year-old gentleman with dysphagia.? He had an episode which woke him up from sleep.? He felt like his throat was swollen shut.? At the time he was also having some neck pain.? He had a cardiac work-up and a CT scan of the neck and chest.? Both were unremarkable.? 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 He had been taking Pepcid and then at some point stopped it.? He is now back on on Pepcid 20 mg twice a day.? He finished a week of Carafate.? We discussed doing another upper endoscopy to look for scarring around the distal esophagus.? I reviewed the procedure in detail with him as well as the complications.? He asked good questions and had a good understanding of the complications.? Risks, benefits and complications have been reviewed. Complications include but are not limited to bleeding, pain, perforation, sore throat, aspiration, and adverse reaction to the medications.? Questions were entertained and answered to their satisfaction and they wished to proceed. No guarantees were given or implied. FINDINGS: Inflammation of the entire stomach, ? small ulcer Inflammation of the distal esophagus at the GE junction PROCEDURE DESCRIPTION: After informed consent was obtained the patient was take to the procedure room and placed in a supine position. Monitors were applied and a time out was done. The patients name, date of , procedure type, allergies to medications and metal in their body was reviewed. A bite block was placed and the patient was sedated. Once sedated and comfortable the gastroscope was advanced through the oropharynx which was grossly normal into the esophagus. The proximal and mid-esophagus were normal. In the distal esophagus there was some inflammation noted. The scope was advanced into the stomach and through the pylorus into the 3rd portion of the duodenum. The duodenum was noted to be normal. The scope was retracted back into the stomach. There was moderate inflammation throughout the stomach. Biopsies were done to rule out H. pylori. There was a shallow ulcer. The scope was retroflexed. The cardia and fundus were noted to be normal. There was no hiatal hernia noted. The scope was retracted back into the esophagus and biopsies were done of the GE junction to rule out Pak's. The Z line was regular. The GE junction was at 40 cm. The scope was removed and the patient was woken up and taken back to [facility] in stable condition. Follow up: 2 weeks. Start on Pepcid 40 mg BID
--- NOTE | 2022-12-07 11:15 | STOM_PTH ---
PATIENT: Louis Odell LOC: [facility] U#:[id number] AGE/SX: 77/M ROOM: RE12/07/[address]: Melony Elkins MD : 1945 BED: DIS: 12/07/2022 SPEC #: [id number] RECD: 12/07/22 12:46 STATUS: CHARLIE RE #: [id number] CURT: 12/07/22 11:[address]: Melony Elkins DEPT: Surgical Specimen RECD BY: Ashlie Schultz ENTERED: 12/07/22 12:47 SP TYPE: STOMACH OTHR DR: Rosi Rosario Tissues: 1 - STOMACH BIOPSY 2 - STOMACH BIOPSY 3 - ESOPHAGUS BIOPSY Procedures: GROSS AND MICRO LEVEL 4 Comments: [id number]
[2022-12-07 11:26] VITALS: BP 116/75; PULSE 62; RESP 20; TEMP 36.6; O2SAT 98
--- NOTE | 2022-12-07 11:45 | W.ANESPOSTOP ---
Postoperative Evaluation Date, Time and Location Date Performed: 12/07/22 Time Performed: 11:48 Patient Location: Day Surgery Unit Vital Signs Most Recent Imported Vital Signs: Most Recent Vital Signs Temp Pulse Resp BP Pulse Ox 36.6 C 62 20 116/75 98 12/07/22 11:26 12/07/22 11:26 12/07/22 11:26 12/07/22 11:26 12/07/22 11:26 Pain Score Most Recent Pain Score: Most Recent Pain Score Pain Level 0 12/07/22 11:26 Assessment Mental Status: Awake (Alert & Oriented to Patient Baseline) Airway and Respiratory Function: Patent airway with normal (patient baseline) respiratory exam Cardiovascular Function: Hemodynamically Stable Hydration Status: Adequately Hydrated Nausea & Vomiting: No Nausea or Vomiting Pain: Pt. Denies Any Pain Peripheral Nerve Block: Patient did not receive a nerve block
[2022-12-07 11:55] VITALS: BP 129/93; PULSE 63; RESP 16; TEMP 36.6; O2SAT 98
== END 2022-12-07 12:16 | disposition home or self-care (01) ==
PROVIDERS: PCP Family Medicine; Visit Provider Surgery
PROC: 0D758ZZ Dilation of Esophagus, Via Natural or Artificial Opening Endoscopic (ICD-10-PCS; CPT 43239; principal; 2022-12-07 11:30)
DX: R13.10 Dysphagia, unspecified (principal); K20.90 Esophagitis, unspecified without bleeding; K29.70 Gastritis, unspecified, without bleeding; K31.89 Other diseases of stomach and duodenum
CPT/HCPCS: 43239; 88305; J2704

== ENCOUNTER → 2022-12-21 13:35 | Outpatient (BNVA) | payer OTHER, SELFPAY | PROVIDERS: PCP Family Medicine; Referring Provider Family Medicine; Visit Provider Surgery | DX: Z48.815 Encounter for surgical aftercare following surgery on the digestive system (principal); K29.70 Gastritis, unspecified, without bleeding | CPT/HCPCS: 99212 ==

== ENCOUNTER 2023-04-07 09:23 | Emergency (ER) | payer OTHER, SELFPAY ==
[2023-04-07 09:33] VITALS: BP 136/81; PULSE 63; RESP 18; TEMP 36.6; O2SAT 100
--- NOTE | 2023-04-07 10:12 | W.ED.GENAD ---
Discharge Plan Disposition Patient Disposition: Home Condition: Stable Discharge Details Clinical Impression: Impacted ear wax Primary Care Provider: Rosi Rosario ED Provider: Romie Badillo Meds and New Rx's Prescriptions: New Clearcanal Earwax Softener 6.5 % drops 5 drp otic (ear) DAILY 4 Days Qty: 15 0RF Continued Metamucil 3.4 gram/5.4 gram powder 1 tbs PO BID cholecalciferol (vitamin D3) 1,000 unit capsule 1,000 unit PO DAILY meloxicam 15 mg tablet 15 mg PO DAILY Qty: 30 0RF famotidine [Pepcid] 40 mg tablet 40 mg PO DAILY Qty: 90 5RF cyanocobalamin (vitamin B-12) 500 mcg lozenge 500 mcg PO DAILY turmeric root extract 500 mg capsule 500 mg PO DAILY zinc 50 mg tablet 50 mg PO DAILY ypyagub-ghyqhzts-gyut 12.5-625-125 mg capsule 1 cap PO DAILY acetaminophen [Tylenol] 325 mg tablet 325 mg PO ONCE PRN omega-3 fatty acids-fish oil 1 EACH capsule 1 cap PO DAILY amlodipine 5 mg tablet 5 mg PO DAILY Qty: 90 4RF doxycycline hyclate 50 mg capsule 50 mg PO DAILY Patient Comments: TAKE ONE CAPSULE BY MOUTH EVERY DAY famotidine [Pepcid] 40 mg tablet 40 mg PO BID Qty: 60 0RF Discharge Instructions Instructions: Impactaci?n Jose (ED) Discharge Data Discharge Physician: Romie Badillo Medical Decision Making Patient presents to the emergency department stating that his ears were clogged attempt to irrigate and unclog the ear is was partially successful for his large amount of hard wax and with a moderate distress canal. Possible molar wax was done and now he will be placed on Debrox to use for 3 days and he will say that he will follow-up with his primary care physician or return here for continuation of the removal of the wax. HPI General Date/Time Provider Initiated Documentation: 04/07/23 10:12. HPI Narrative: Patient presents emergency department stating that he cannot hear from both ears and is causing him to have a right occipital headache. States that he needs his ears cleaned out Related Data Home Medications Medication Instructions Recorded Confirmed omega-3 fatty acids-fish oil 300 1 cap PO DAILY 10/04/12 04/07/23 mg-1,000 mg capsule cholecalciferol (vitamin D3) 25 1,000 unit PO DAILY 03/09/18 04/07/23 mcg (1,000 unit) capsule psyllium husk 3.4 gram/5.4 gram 1 tbs PO BID 03/09/18 04/07/23 oral powder (Metamucil) cyanocobalamin (vitamin B-12) 500 500 mcg PO DAILY 04/08/21 04/07/23 mcg lozenges acetaminophen 325 mg tablet 325 mg PO ONCE PRN 04/13/21 04/07/23 (Tylenol) calcium wavmuzxfw-jvgdytxo-xwxd 1 cap PO DAILY 04/13/21 04/07/23 12.5 mg-625 mg-125 mg capsule turmeric root extract 500 mg 500 mg PO DAILY 04/13/21 04/07/23 capsule zinc 50 mg tablet 50 mg PO DAILY 04/13/21 04/07/23 amlodipine 5 mg tablet 5 mg PO DAILY #90 tab-caps 07/04/22 04/07/23 meloxicam 15 mg tablet 15 mg PO DAILY #30 tabs 08/03/22 04/07/23 doxycycline hyclate 50 mg capsule 50 mg PO DAILY 12/06/22 04/07/23 famotidine 40 mg tablet (Pepcid) 40 mg PO BID #60 tabs 12/07/22 04/07/23 famotidine 40 mg tablet (Pepcid) 40 mg PO DAILY #90 tabs 12/21/22 04/07/23 carbamide peroxide 6.5 % ear drops 5 drp otic (ear) DAILY 4 days #15 04/07/23 (Clearcanal Earwax Softener) mL Previous Rx's Medication Instructions Recorded amlodipine 5 mg tablet 5 mg PO DAILY #90 tab-caps 07/04/22 meloxicam 15 mg tablet 15 mg PO DAILY #30 tabs 08/03/22 famotidine 40 mg tablet (Pepcid) 40 mg PO BID #60 tabs 12/07/22 famotidine 40 mg tablet (Pepcid) 40 mg PO DAILY #90 tabs 12/21/22 carbamide peroxide 6.5 % ear drops 5 drp otic (ear) DAILY 4 days #15 04/07/23 (Clearcanal Earwax Softener) mL Allergies Allergy/AdvReac Type Severity Reaction Status Date / Time morphine Allergy Severe THROAT Verified 04/07/23 09:37 SWELLING simvastatin AdvReac Unknown INTOLERANT Verified 04/07/23 09:37 General Stated Complaint: Headache ARIES: 3 Review of Systems Narrative: Review of Systems: Constitutional: No fevers, chills, sweats Eye: No recent visual problems ENT: No ear pain, nasal congestion, sore throat Respiratory: No shortness of breath, cough Cardiovascular: No Chest pain, palpitations, syncope Gastrointestinal: No nausea, vomiting, diarrhea Genitourinary: No hematuria Silvio/Lymph: Negative for bruising tendency, swollen lymph glands Endocrine: Negative for excessive thirst, excessive hunger Musculoskeletal: No back pain, neck pain, joint pain, muscle pain, decreased range of motion Integumentary: No rash, pruritus, abrasions Neurologic: Alert & oriented X 4 Psychiatric: No anxiety, depression PFSH All Active Problems (Updated 04/07/23 @ 12:28 by Romie Badillo MD) Impacted ear wax (Acute) Esophagitis (Acute) Gastritis (Acute) Recurrent depression (Chronic) Dysphagia (Acute) 2005- HH, esophageal ring and presbyesophagus. Essential hypertension (Acute 04/08/13) Generalized osteoarthrosis of multiple sites (Acute) right ankle Hyperlipidemia (Acute) Rosacea (Acute) Sensorineural hearing loss, bilateral (Acute 09/14/15) Incontinence of feces (Acute) Chronic insomnia (Acute) Arthritis of right acromioclavicular joint (Acute) Right rotator cuff tear (Acute) Arthritis of right glenohumeral joint (Acute) 40 mg corticosteroid injection 09/14/22 Medical History Normal esophagogastroduodenoscopy (EGD) History of tobacco use quit 06/19/1979; smoked for 25 yrs History of left heart catheterization (~2007) non obstructive disease Raised prostate specific antigen Closed right ankle fracture DJD Peptic ulcer disease 2004- H. pylori positive treated Adenomatous polyp of colon s/p sigmoid resection for large polyp 2009 History of elevated PSA CAD (coronary artery disease) chest pain 2007- cath- nonobstructive Recurrent anxiety Hx of sciatica Surgical History History of esophagogastroduodenoscopy (~11/2022) History of dilation of urethra History of hemicolectomy RIGHT HEMICOLECTOMY, 02/25 OPEN HEMICOLECTOMY @ 40CM TO REMOVE TUBULAR ADENOMA COVERING 1/3 OF BOWEL WALL. Status post prostatectomy enlarged, no cancer per pt History of esophagogastroduodenoscopy (EGD) (05/29/18) 05/29/18 - EGD - Dr Rome - focal intestinal metaplasia and active reflux, repeat 6 mos. Ranitidine BID. Urethral Dilation Sigmoid resection for polyps 2008 Colonoscopy - MAC (03/29/17) Family History Mother , age 81 Neoplasm Alzheimers disease Father , age 75 Heart disease Sister , age 71 Heart disease Alzheimers disease Sister , age 79 Heart disease Neoplasm Alzheimers disease Brother , age 52 Heart disease Brother , age 45 Heart disease Maternal Grandfather No problems noted. Paternal Grandfather No problems noted. Maternal Grandmother No problems noted. Paternal Grandmother No problems noted. FAMILY HISTORY Diabetes Sister , age 62 Neoplasm Heart disease Brother Heart disease Social History Smoking/Tobacco Use Status: Former Tobacco Use tobacco type: cigarettes Quit Date: 06/19/79 Pack-years: 20 Second Hand Exposure: Yes Smoking risk assessment performed?: Yes Alcohol Intake: current Alcohol Intake frequency: a few times a week Alcohol type: wine Drug use: Rarely Substance use type: marijuana Caregiver/Support person: No Household members: spouse Housing: house Number of Children: 3 Communication Needs: Hard of Hearing Do you need help understanding health information?: Often current occupation: Retired from [employer]. Pets and animals: No Sexually active: Yes Current gender identity: male What is your relationship status?: How often do you get together with friends or relatives?: twice per week Do you belong to any clubs or organized social groups?: no Panel score (0-1 are the most socially isolated patients): 1 What type of physical activity do you participate in: other Details: house hold chores Duration: > 90 minutes/day Frequency: 5-6 times per week [place]: No preference Do you feel safe at home: Yes Do you feel safe in your relationship?: Yes Exam Narrative Exam Narrative: Exam; vitals signs as reported above normal Constitutional; In no acute distress, afebrile General: cooperative, healthy appearing, comfortable and no acute distress HEENT: Head: normal to inspection, no palpable skull fracture and normocephalic atraumatic Eyes: : appearance normal, both eyes and all related structures EOM intact bilaterally Pupils: PERRL : conjunctiva normal Direct ophthalmoscopy: normal light reflex, normal conjunctiva, normal visual acuity Ears: Unable to visualize both tympanic membranes for the ear canal is clogged with earwax that is hard Nose: normal no rhinorreha Neck no JVD, supple non tender Neck: normal visual inspection, full ROM and no lymphadenopathy Chest: normal inspection of the chest Respiratory : normal respiratory effort and able to speak in complete sentences no wheezing no rales Cardio Rate: regular rate, rhythm: regular rhythm normal heart sounds S1 and S2 no murmurs, gallops, or rubs GI : normal to inspection, normal bowel sounds, soft, non tender, non distended, no organomegaly Back/Spine/ no CVA tenderness Thoracic/Lumbar Spine: no tenderness or deformities Skin no rashes or lesions Neuro: patient alert oriented x 4 and no meningeal signs, Cranial Nerves: CN's II-XI intact bilaterally, Cognition: normal cognition, Speech: speech normal, Gait: normal gait, Depp tendon reflexes normal 2+ muscle strength 5/5 bilaterally Extremities, no edema, full range of motion, normal strength : normal Rectal: Course Vital Signs Vital signs: Vital Signs Temperature 36.6 C 04/07/23 09:33 Pulse 63 04/07/23 09:33 Respiratory Rate 18 04/07/23 09:33 Blood Pressure 136/81 04/07/23 09:33 Pulse Oximetry 100 04/07/23 09:33 Temperature 36.6 C 04/07/23 09:33 Temperature Source Temporal Artery Scan 04/07/23 09:33 Pulse 63 04/07/23 09:33 Respiratory Rate 18 04/07/23 09:33 Respiratory Effort Normal, Non-Labored 04/07/23 09:38 Blood Pressure 136/81 04/07/23 09:33 Blood Pressure Position Sitting 04/07/23 09:33 Pulse Oximetry 100 04/07/23 09:33 Oxygen Delivery Method Room Air 04/07/23 09:33 Oxygen Flow Rate 0 10/20/23 09:33 PAWSS Have you Been Recently Intoxicated or Drunk Within the Last 30 days?: No Have you Ever Experienced Previous Episodes of Alcohol Withdrawal?: No Have you ever Experienced Withdrawal Seizures?: No Have you ever Experienced Delirium Tremens(DT)s?: No Have you ever undergone Alcohol Rehabilitation Treatment (i.e, inpt ot outpatient treatment programs)?: No Have you ever Experienced Blackouts?: No Have you ever Combined Alcohol with other Downers within the last 90 days?: No Have you ever Combined Alcohol with any other Substance of Abuse during the last 90 days?: No Positive Blood Alcohol level on Presentation? [PCS.BAL]: No Evidence of Increased Autonomic Activity (i.e. HR>120, tremor, sweating, agitation, nausea)?: No Result: 0
--- NOTE | 2023-04-07 12:11 | NUR.NOTE ---
Nursing Note: patient's bilat ears completely occluded with dark hard ear wax. Per provier this RN and Tech used elephant ear flush to attempt to dislodge wax. Procedure was stopped on Right ear D/T pateint C/O too much discomfort. Wax was dislodged from right ear but ear drum not visible. Left ear still has wax, lower aspect of ear drum now visible. Patient request the procedure to before as his ears feel irritated
== END 2023-04-07 13:10 | disposition home or self-care (01) ==
PROVIDERS: Emergency Provider Emergency Medicine Emergency Medical Services; PCP Family Medicine
DX: H93.8X3 Other specified disorders of ear, bilateral (principal); H61.23 Impacted cerumen, bilateral
CPT/HCPCS: 99282

== ENCOUNTER 2023-04-15 16:10 | Emergency (ER) | payer OTHER, SELFPAY ==
[2023-04-15 16:11] VITALS: BP 147/92; PULSE 75; RESP 20; TEMP 36.4; O2SAT 100
--- NOTE | 2023-04-15 16:15 | DI.RAD_ITS ---
Exam(s) XR TIB/FIB RT EXAM: XR TIB/FIB RT CLINICAL HISTORY: Trauma. TECHNIQUE: 2D digital imaging was performed. Two views. COMPARISON: No exams were available for comparison FINDINGS: Exam limited by overlying material. BONES: No acute fracture is present. No bony destructive lesion is seen. Visualized portion of knee a nd ankle joints are unremarkable. SOFT TISSUE: Mild swelling proximally. Vascular calcifications. IMPRESSION: Soft tissue swelling. No acute bony abnormality. DATA REPOSITORY: RADIATION DOSE DELIVERED:
--- NOTE | 2023-04-15 16:15 | DI.CT_ITS ---
Exam(s) CT HEAD WO EXAM: CT HEAD WO CLINICAL HISTORY: Fall, Head Injury. TECHNIQUE: Imaging Protocol: Axial computed tomography images with coronal and sagittal reformatted images were created and reviewed COMPARISON: No exams were available for comparison FINDINGS: Ventricles and Extra axial spaces: Normal in size and morphology for the patient's age. Hemorrhage: None. Cerebral parenchyma: Atrophy. White matter changes consistent with small vessel disease. Unremarkab le for patient's age. Midline shift: None. Brainstem/Cerebellum: Normal. Calvarium: Normal. Visualized Paranasal sinuses/Mastoids: Mucous retention cysts in the maxillary sinus and mild mucosal thickening of the ethmoids. IMPRESSION: No acute abnormality. RADIATION DOSE DELIVERED: Total DLP Total DLP DATA REPOSITORY: All CT scans at this facility are submitted to the National Radiology Data Registry (NRDR) Dose Index Registry (DIR) with the [employer] (ACR). RADIATION OPTIMIZATION: All CT scans at this facility use at least one of these dose optimization te chniques: automated exposure control; mA and/or kV adjustment per patient size (includes targeted exa ms where dose is matched to clinical indication); or iterative reconstruction.
--- NOTE | 2023-04-15 16:15 | DI.RAD_ITS ---
Exam(s) XR LUMBAR SPINE COMPLETE EXAM: XR LUMBAR SPINE COMPLETE CLINICAL HISTORY: Trauma, low back pain. TECHNIQUE: 2D digital imaging was performed. Five views. COMPARISON: CT CT THORAX ABDOMEN CTA from 04/08/[address] THORAX CTA from 11/10/2022 FINDINGS: Degenerative changes are noted throughout. Overlying bowel gas some obscures visualization of bony d etail. There is mild loss of height of the superior endplate L1 not seen on previous CT, of indeterminate ag e. Vertebral bodies otherwise are maintained. Degenerative disc changes are noted greatest at L2-3. There is stable mild spondylolisthesis at L3-4 and L4-5. The aorta is heavily calcified. No evidence of aneurysm. IMPRESSION: Mild compression of the superior endplate of L1 is of indeterminate age but new since 2020. DATA REPOSITORY: RADIATION DOSE DELIVERED:
--- NOTE | 2023-04-15 16:15 | DI.RAD_ITS ---
Exam(s) XR HAND LT LIMITED EXAM: XR HAND LT LIMITED CLINICAL HISTORY: Trauma. TECHNIQUE: 2D digital imaging was performed. Two views. COMPARISON: No exams were available for comparison FINDINGS: The exam is limited by positioning. There is overlap of the fingers on the lateral view. The finge rs are somewhat flexed on the PA view. BONES: No acute fracture is present. No bony destructive lesion is seen. JOINTS: No dislocation present. Degenerative changes are noted of the interphalangeal joints, greate st at the 2nd distal interphalangeal joint where there is flexion. SOFT TISSUE: Swelling around the 2nd finger. No foreign body. No gas collection. IMPRESSION: Degenerative changes. Soft tissue swelling. No evidence of fracture DATA REPOSITORY: RADIATION DOSE DELIVERED:
--- NOTE | 2023-04-15 16:15 | DI.RAD_ITS ---
Exam(s) XR CHEST 1V IN DI DEPT EXAM: XR CHEST 1V IN DI DEPT CLINICAL HISTORY: Trauma TECHNIQUE: 2D digital imaging was performed. COMPARISON: No exams were available for comparison FINDINGS: Exam is limited by poor pulmonary inflation. LUNGS: Mildly increased pulmonary densities, atelectasis versus infiltrate. No pleural abnormality s een. HEART: Mildly enlarged. AORTA: Normal diameter. BONES: Unremarkable for age. Soft tissues: Unremarkable. IMPRESSION: Limited exam due to poor pulmonary inflation. Question of increased of basilar densities. DATA REPOSITORY: RADIATION DOSE DELIVERED:
--- NOTE | 2023-04-15 16:23 | ED.GENADUL_ITS ---
Discharge Plan Disposition Patient Disposition: Home Condition: Stable Discharge Details Clinical Impression: Compression fracture of lumbar vertebra, Accidentally struck by tree, Skin tear of left hand without complication Primary Care Provider: Rosi Rosario ED Provider: Roseline Albert Home Meds and New Rx's Prescriptions: Continued Metamucil 3.4 gram/5.4 gram powder 1 tbs PO BID cholecalciferol (vitamin D3) 1,000 unit capsule 1,000 unit PO DAILY meloxicam 15 mg tablet 15 mg PO DAILY Qty: 30 0RF famotidine [Pepcid] 40 mg tablet 40 mg PO DAILY Qty: 90 5RF cyanocobalamin (vitamin B-12) 500 mcg lozenge 500 mcg PO DAILY turmeric root extract 500 mg capsule 500 mg PO DAILY zinc 50 mg tablet 50 mg PO DAILY qfjttcr-shbheszy-rfuu 12.5-625-125 mg capsule 1 cap PO DAILY acetaminophen [Tylenol] 325 mg tablet 325 mg PO ONCE PRN omega-3 fatty acids-fish oil 1 EACH capsule 1 cap PO DAILY amlodipine 5 mg tablet 5 mg PO DAILY Qty: 90 4RF doxycycline hyclate 50 mg capsule 50 mg PO DAILY Patient Comments: TAKE ONE CAPSULE BY MOUTH EVERY DAY Discharge Instructions Instructions: Vertebral Compression Fracture (ED), Skin Tear (ED) Additional Instructions: It appears you have a L1 compression fracture which appears new. Please get a Velcro type back brace which may be available [id number]. No severe bending or heavy lifting. No significant twisting. Return to the ER for any loss of bowel or bladder control, numbness tingling in your legs, weakness in your legs chest pain shortness of breath or any concerns. Follow up with primary care provider in 3-5 days. Return to ED sooner if any worsening or concerns. Increase oral fluids. Please take Tylenol or Ibuprofen with food every 4-6 hours as needed for pain and swelling. Do not drive while taking the tramadol. Take it with food. Only take it for severe pain not relieved by Tylenol or ibuprofen. It may make you sleepy. No operating heavy machinery while taking this medication. Referrals: Rosi Rosario MD [Primary Care Provider] - 5 days Maurizio Zhou MD [ [facility] STAFF PHYSICIAN] - Return if symptoms worsen Medical Decision Making 77-year-old male presents to the ER via EMS after approximately 12 inch diameter tree at the stump fell on him while he was cutting it down. He landed on his legs he fell backwards. According to EMS report his got the tree off of his legs on scene. No loss of consciousness. He is alert and oriented x3 upon arrival does not take any blood thinners. He does arrive in a c-collar however he has no C-spine tenderness. He does have a skin tear noted to his left dorsal hand, abrasion to his left anterior santillan and is complaining of lower back pain. He did take Tylenol ibuprofen prior to arrival. EMS started an IV and applied a c-collar. Past medical history include coronary artery disease, history of left heart catheterization in 2007, former smoker, peptic ulcer disease, recurrent anxiety and sciatica C-collar removed upon arrival, CT spine cleared by myself, head CT ordered for precaution, x-ray chest 1 view, L-spine x-ray and right tib-fib x-ray. X-ray of L-spine shows an L1 compression deformity which may appear chronic they recommend CT scan or MRI to evaluate for acuity. Head CT shows no acute hemorrhage or acute infarct there is some white matter hypodensities consistent with age. No acute fracture noted on the hand x-rays please see V rad reports. CT T and L-spine without contrast ordered. Wound care ordered. 1746: On patient reevaluation he is not requesting any pain medication is at bedside. Patient was ambulatory on scene after the incident. I did discuss the x-ray results with him he verbalized understanding. They are in agreement with plan of care. PFT and L-spine does show acute L1 compression fracture, no thoracic spine fractures. Patient is allergic to morphine, considered prescribing oxycodone which was changed to tramadol. Patient to be discharged home discuss strict return instructions with patient and family to return for any numbness tingling, loss of bowel or bladder control, worsening chest pain shortness of breath or any concerns. Remained hemodynamically stable alert and oriented and ambulatory upon discharge. I did instruct them to get him back brace [id number]. This text was generated using XOJETation system, please disregard any oddities of phrase or misspellings. Imaging Data Radiologic Study: Imaging: X-Ray Radiologist's impression: Age: 77 years old Clinical indication: Other: Trauma TECHNIQUE: Imaging protocol: Radiologic exam of the lumbosacral spine. Views: 4 or 5 views. COMPARISON: CT THORAX ABDOMEN CTA 04/08/2021 6:36 PM FINDINGS: Bones/joints: Stable degenerative changes with stable anterolisthesis of L4 on L5. Interval loss of height along the superior endplate of L1 appears chronic but correlation point tenderness is recommended. If there is pain to palpation here bone scan or MRI can be used to evaluate for acuity. Symmetric SI joints. Soft tissues: Unremarkable. IMPRESSION: L1 compression deformity as above. Thank you for allowing us to participate in the care of your patient. Dictated and Authenticated by: Alexander Real MD Radiologic Study #2: Imaging: CT Scan Radiologist's impression: CT head WO FINDINGS: Brain: Diffuse involutional changes and white matter hypodensities consistent with age. These findings are most likely due to atrophy and small vessel disease. No acute hemorrhage or acute terratorial infarct. Vascular calcifications at the [place]. Cerebral ventricles: No gross venticulomegaly. Paranasal sinuses: No significant opacity or air fluid levels. Polypoid thickening in the maxillary sinuses with mild mucosal disease in the ethmoids. No air-fluid levels. Mastoid air cells: Mastoids: No significant abnormality. Orbital cavities: No acute abnormality. Bones/joints: No acute fracture. Soft tissues: Limited left frontal and periorbital soft tissue swelling. IMPRESSION: No acute intracranial abnormality. If concern persists, consider MRI or CTA. Radiologic Study #3: Imaging: CT Scan Radiologist's impression: FINDINGS: Bones/joints: Fracture of L1 involving the mid anterior cortex extending into the mid superior endplate. 10-20% anterior wedging of L1. No fracture fragment extends into the spinal canal. 5 mm anterolisthesis of L4 on L5. Bulky osteophytes, moderate to severe disc space narrowing and vacuum phenomenon at L2-L3. Osteophytes, mild disc space narrowing and vacuum phenomenon at L3-L4. Posterior disc and osteophytes, facet arthropathy at L2-L3. Osteophytes, disc bulge and facet arthropathy at L3-L4 results in [id number] spinal stenosis. Pseudo disc secondary to the spondylolisthesis, facet arthropathy and hypertrophy of the ligamentum flavum results in moderate to severe spinal stenosis at L4-L5. Soft tissues: Unremarkable. IMPRESSION: 1. Acute L1 compression fracture. 2. Grade 1 spondylolisthesis of L4 on L5 secondary to facet arthropathy. 3. 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 Thank you for allowing us to participate in the care of your patient. Dictated and Authenticated by: Paulie Ochoa MD [facility] General Mode of arrival: EMS . Date/Time Provider Initiated Documentation: 04/15/23 16:20 . Limitations to Documentation: no limitations . Information obtained by: patient, EMS, RN notes reviewed and old records reviewed . HPI Narrative: 77-year-old male presents to the ER via EMS after approximately 12 inch diameter tree at the stump fell on him while he was cutting it down. He landed on his legs he fell backwards. According to EMS report his got the tree off of his legs on scene. No loss of consciousness. He is alert and oriented x3 upon arrival does not take any blood thinners. He does arrive in a c-collar however he has no C-spine tenderness. He does have a skin tear noted to his left dorsal hand, abrasion to his left anterior santillan and is complaining of lower back pain. He did take Tylenol ibuprofen prior to arrival. EMS started an IV and applied a c-collar. Past medical history include coronary artery disease, history of left heart catheterization in 2007, former smoker, peptic ulcer disease, recurrent anxiety and sciatica Related Data Home Medications Medication Instructions Recorded Confirmed omega-3 fatty acids-fish oil 300 1 cap PO DAILY 10/04/12 04/15/23 mg-1,000 mg capsule cholecalciferol (vitamin D3) 25 1,000 unit PO DAILY 03/09/18 04/15/23 mcg (1,000 unit) capsule psyllium husk 3.4 gram/5.4 gram 1 tbs PO BID 03/09/18 04/15/23 oral powder (Metamucil) cyanocobalamin (vitamin B-12) 500 500 mcg PO DAILY 04/08/21 04/15/23 mcg lozenges acetaminophen 325 mg tablet 325 mg PO ONCE PRN 04/13/21 04/15/23 (Tylenol) calcium prxwqzmsz-jvegvqca-nqme 1 cap PO DAILY 04/13/21 04/15/23 12.5 mg-625 mg-125 mg capsule turmeric root extract 500 mg 500 mg PO DAILY 04/13/21 04/15/23 capsule zinc 50 mg tablet 50 mg PO DAILY 04/13/21 04/15/23 amlodipine 5 mg tablet 5 mg PO DAILY #90 tab-caps 07/04/22 04/15/23 meloxicam 15 mg tablet 15 mg PO DAILY #30 tabs 08/03/22 04/15/23 doxycycline hyclate 50 mg capsule 50 mg PO DAILY 12/06/22 04/15/23 famotidine 40 mg tablet (Pepcid) 40 mg PO DAILY #90 tabs 12/21/22 04/15/23 Previous Rx's Medication Instructions Recorded amlodipine 5 mg tablet 5 mg PO DAILY #90 tab-caps 07/04/22 meloxicam 15 mg tablet 15 mg PO DAILY #30 tabs 08/03/22 famotidine 40 mg tablet (Pepcid) 40 mg PO DAILY #90 tabs 12/21/22 Allergies Allergy/AdvReac Type Severity Reaction Status Date / Time morphine Allergy Severe THROAT Verified 04/11/23 10:01 SWELLING simvastatin AdvReac Unknown INTOLERANT Verified 04/11/23 10:01 General Stated Complaint: Trauma ARIES: 3 Review of Systems All systems reviewed & are unremarkable except as noted in HPI and below Eyes Eyes: Denies loss of vision ENT Ears, Nose, Mouth, and Throat: Denies dizziness and Denies neck pain Musculoskeletal Musculoskeletal: Reports as per HPI, Reports back pain, Denies deformity, Denies neck pain, Denies numbness and Denies tingling Integumentary/Breasts Skin/Breast: Reports as per HPI and Reports wounds Neurologic Neurologic: Denies confusion, Denies dizziness, Denies loss of vision, Denies numbness, Denies restless legs, Denies convulsions and Denies tingling Psychiatric Psychiatric: Denies confusion [facility] All Active Problems (Updated 04/15/23 @ 19:05 by Roseline Albert NP) Skin tear of left hand without complication (Acute) Accidentally struck by tree (Acute) Compression fracture of lumbar vertebra (Acute) Impacted ear wax (Acute) Esophagitis (Acute) Gastritis (Acute) Recurrent depression (Chronic) Dysphagia (Acute) 2004- , esophageal ring and presbyesophagus. Essential hypertension (Acute 04/08/13) Generalized osteoarthrosis of multiple sites (Acute) right ankle Hyperlipidemia (Acute) Rosacea (Acute) Sensorineural hearing loss, bilateral (Acute 09/14/15) Incontinence of feces (Acute) Chronic insomnia (Acute) Arthritis of right acromioclavicular joint (Acute) Right rotator cuff tear (Acute) Arthritis of right glenohumeral joint (Acute) 40 mg corticosteroid injection 09/14/22 Medical History Normal esophagogastroduodenoscopy (EGD) History of tobacco use quit 06/19/1979; smoked for 25 yrs History of left heart catheterization (~2007) non obstructive disease Raised prostate specific antigen Closed right ankle fracture DJD Peptic ulcer disease 2004- H. pylori positive treated Adenomatous polyp of colon s/p sigmoid resection for large polyp 2008 History of elevated PSA CAD (coronary artery disease) chest pain 2007- cath- nonobstructive Recurrent anxiety Hx of sciatica Surgical History History of esophagogastroduodenoscopy (~11/2022) History of dilation of urethra History of hemicolectomy RIGHT HEMICOLECTOMY, 02/25 OPEN HEMICOLECTOMY @ 40CM TO REMOVE TUBULAR ADENOMA COVERING 1/3 OF BOWEL WALL. Status post prostatectomy enlarged, no cancer per pt History of esophagogastroduodenoscopy (EGD) (05/29/18) 05/29/18 - EGD - Dr Rome - focal intestinal metaplasia and active reflux, repeat 6 mos. Ranitidine BID. Urethral Dilation Sigmoid resection for polyps 2008 Colonoscopy - MAC (03/29/17) Family History Mother , age 81 Neoplasm Alzheimers disease Father , age 75 Heart disease Sister , age 71 Heart disease Alzheimers disease Sister , age 79 Heart disease Neoplasm Alzheimers disease Brother , age 52 Heart disease Brother , age 45 Heart disease Maternal Grandfather No problems noted. Paternal Grandfather No problems noted. Maternal Grandmother No problems noted. Paternal Grandmother No problems noted. FAMILY HISTORY Diabetes Sister , age 62 Neoplasm Heart disease Brother Heart disease Social History Smoking/Tobacco Use Status: Former Tobacco Use tobacco type: cigarettes Quit Date: 06/19/79 Pack-years: 20 Second Hand Exposure: Yes Smoking risk assessment performed?: Yes Alcohol Intake: current Alcohol Intake frequency: a few times a week Alcohol type: wine Drug use: Rarely Substance use type: marijuana Caregiver/Support person: No Household members: spouse Housing: house Number of Children: 3 Communication Needs: Hard of Hearing Do you need help understanding health information?: Often current occupation: Retired from [employer] and [employer]. Pets and animals: No Sexually active: Yes Current gender identity: male What is your relationship status?: How often do you get together with friends or relatives?: twice per week Do you belong to any clubs or organized social groups?: no Panel score (0-1 are the most socially isolated patients): 1 What type of physical activity do you participate in: other Details: house hold chores Duration: > 90 minutes/day Frequency: 5-6 times per week [place]/Synagogue: No preference Do you feel safe at home: Yes Do you feel safe in your relationship?: Yes Exam Narrative Exam Narrative: General: Well Developed, Awake and Alert, conversant. Skin: Warm and Dry HEENT: Head: No palpable deformities, Normocephalic Eyes: Pupils PERRLA, EOM's intact. No periorbital eccymosis or step off Ears: Canal patent. Tympanic membranes are clear . No sutton's sign, no hemptympanum. Nose/Face: Atraumatic. Facial bones nontender to palpation and stable with manipulation. Mouth/Throat: No intraoral trauma. Teeth and mandible are intact. Neck: No midline tenderness, no step off, no deformity to palpation of C-spine. Trachea midline. Chest: No surface trauma. Nontender without crepitus or deformity. Lungs clear to ausculatation bilaterally. Heart: RRR, no rubs, murmurs or gallop. Abdomen: No abrasions, ecchymosis, or surface trauma. Nondistended. Nontender to palpation no guarding, rebound, or rigidity. Neck back: No midline tenderness crepitus or step-off upon palpation he does have a mild amount of swelling noted to his right lateral lower lumbar however with palpation no tenderness. Pelvis: Nontender to palpation and stable to compression. Femoral pulses strong and equal Extremities: Superficial abrasion and swelling noted to his right anterior santillan approximately 7 cm in length, small abrasion to his left anterior santillan, skin tear noted to the dorsum of his left hand bleeding controlled upon arrival and dressing in place, sensation intact. Peripheral pulses intact and equal. Neuro: ANO x4, GCS 15, cranial nerves II through XII intact. Motor and sensory exam nonfocal. Reflexes are symmetric. Course Vital Signs Vital signs: Vital Signs Temperature 36.4 C 04/15/23 16:11 Pulse 75 04/15/23 16:11 Respiratory Rate 20 04/15/23 16:11 Blood Pressure 147/92 H 04/15/23 16:11 Pulse Oximetry 100 04/15/23 16:11 Temperature 36.4 C 04/15/23 16:11 Temperature Source Oral 04/15/23 16:11 Pulse 75 04/15/23 16:11 Respiratory Rate 20 04/15/23 16:11 Blood Pressure 147/92 H 04/15/23 16:11 Blood Pressure Position Supine 04/15/23 16:11 Pulse Oximetry 100 04/15/23 16:11 Oxygen Delivery Method Room Air 04/15/23 16:11 Oxygen Flow Rate 0 04/15/23 16:11
--- NOTE | 2023-04-15 17:01 | DI.VRAD_ITS ---
PROCEDURE INFORMATION: Exam: CT Head Without Contrast Exam date and time: 04/15/2023 4:43 PM Age: 77 years old Clinical indication: Other: Fall, head injury TECHNIQUE: Imaging protocol: Computed tomography of the head without contrast. Radiation optimization: All CT scans at this facility use at least one of these dose optimization techniques: automated exposure control; mA and/or kV adjustment per patient size (includes targeted exams where dose is matched to clinical indication); or iterative reconstruction. COMPARISON: CT CAROTID NECK CTA 11/10/2022 9:12 AM FINDINGS: Brain: Diffuse involutional changes and white matter hypodensities consistent with age. These findings are most likely due to atrophy and small vessel disease. No acute hemorrhage or acute terratorial infarct. Vascular calcifications at the [place] of [place]. Cerebral ventricles: No gross venticulomegaly. Paranasal sinuses: No significant opacity or air fluid levels. Polypoid thickening in the maxillary sinuses with mild mucosal disease in the ethmoids. No air-fluid levels. Mastoid air cells: Mastoids: No significant abnormality. Orbital cavities: No acute abnormality. Bones/joints: No acute fracture. Soft tissues: Limited left frontal and periorbital soft tissue swelling. IMPRESSION: No acute intracranial abnormality. If concern persists, consider MRI or CTA. Dictated and Authenticated by: Alexander Real MD. Ordering:TAYLOR Dukes MD
--- NOTE | 2023-04-15 17:02 | DI.VRAD_ITS ---
PROCEDURE INFORMATION: Exam: XR Left Hand Exam date and time: 04/15/2023 4:50 PM Age: 77 years old Clinical indication: Other: Trauma TECHNIQUE: Imaging protocol: Radiologic exam of the left hand. Views: 1 or 2 views. COMPARISON: No relevant prior studies available. FINDINGS: Bones/joints: Degenerative changes best seen at the 2nd PIP joint. No acute fracture. Soft tissues: Normal. IMPRESSION: No acutely displaced fracture. Dictated and Authenticated by: Alexander Real MD. Ordering:TAYLOR Dukes MD
--- NOTE | 2023-04-15 17:03 | DI.VRAD_ITS ---
PROCEDURE INFORMATION: Exam: XR Right Tibia and Fibula Exam date and time: 04/15/2023 4:52 PM Age: 77 years old Clinical indication: Other: Trauma TECHNIQUE: Imaging protocol: Radiologic exam of the right tibia and fibula. Views: 2 views. COMPARISON: No relevant prior studies available. FINDINGS: Bones/joints: Mild degenerative changes without acute fracture or osteochondral defect. Mildly heterogeneous density of the proximal shaft of the femur. Consider nonemergent bone scan follow-up. This region measures a length of 4.1 cm on the frontal view. Soft tissues: Normal. Other findings: Early arteriovascular calcifications in the field of view. IMPRESSION: No acute fracture. Other findings. Dictated and Authenticated by: Alexander Real MD. Ordering:TAYLOR Dukes MD
--- NOTE | 2023-04-15 17:13 | DI.VRAD_ITS ---
PROCEDURE INFORMATION: Exam: XR Lumbosacral Spine Exam date and time: 04/15/2023 4:59 PM Age: 77 years old Clinical indication: Other: Trauma TECHNIQUE: Imaging protocol: Radiologic exam of the lumbosacral spine. Views: 4 or 5 views. COMPARISON: CT THORAX ABDOMEN CTA 04/08/2021 6:36 PM FINDINGS: Bones/joints: Stable degenerative changes with stable anterolisthesis of L4 on L5. Interval loss of height along the superior endplate of L1 appears chronic but correlation point tenderness is recommended. If there is pain to palpation here bone scan or MRI can be used to evaluate for acuity. Symmetric SI joints. Soft tissues: Unremarkable. IMPRESSION: L1 compression deformity as above. Dictated and Authenticated by: Alexander Real MD. Ordering:TAYLOR Dukes MD
--- NOTE | 2023-04-15 17:13 | DI.VRAD_ITS ---
PROCEDURE INFORMATION: Exam: XR Chest Exam date and time: 04/15/2023 5:05 PM Age: 77 years old Clinical indication: Other: Trauma TECHNIQUE: Imaging protocol: Radiologic exam of the chest. Views: 1 view. COMPARISON: CT THORAX CTA 11/10/2022 9:30 AM FINDINGS: Lungs: Limited likely atelectatic or scarring changes in the lung bases. Pleural spaces: Unremarkable. No pleural effusion. No pneumothorax. Heart/Mediastinum: Unremarkable. No cardiomegaly. Bones/joints: Degenerative changes without acute fracture IMPRESSION: No definite acute traumatic injury. CT would be more sensitive and specific, however. Dictated and Authenticated by: Alexander Real MD. Ordering:TAYLOR Dukes MD
--- NOTE | 2023-04-15 17:30 | DI.CT_ITS ---
Exam(s) CT THORACIC LUMBAR SPINE WO EXAM: CT THORACIC LUMBAR SPINE WO CLINICAL HISTORY: Back pain and eval L1 to determine acuity. TECHNIQUE: Imaging Protocol: Axial computed tomography images with coronal and sagittal reformatted images were created and reviewed. COMPARISON: CR,XR XR CHEST 1V IN DI DEPT from 04/15/2023 CR,XR XR LUMBAR SPINE COMPLETE from 04/15/2023 FINDINGS: Thoracic spine: Bones: No fractures are seen. The alignment of the spine is normal including the cervicothoracic junc tion. Degenerative disc changes noted lower cervical spine.. Osteophytes mid to lower thoracic spi ne. Soft tissues: The soft tissues of the chest are unremarkable. No large disk herniations are identifie d. Lumbar spine: Bones: Acute minimal compression fracture superior endplate of L1. No involvement of the posterior e lements or retropulsion. Degenerative changes are noted greatest at L2-3 and L3-4. Xvzm-jp-mlbwlurz central canal stenosis at L3-4. There are facet degenerative changes causing slight spondylolisthes is at L3-4 and L4-5. Moderate to severe central canal stenosis L4-5. No spondylolysis. Soft tissues: The para spine soft tissues are unremarkable. Cholelithiasis incidentally noted. IMPRESSION: Acute mild compression fracture of the superior endplate of L1 without extension into the central can al. Degenerative changes. RADIATION DOSE DELIVERED: Total DLP Total DLP DATA REPOSITORY: All CT scans at this facility are submitted to the National Radiology Data Registry (NRDR) Dose Index Registry (DIR) with the [employer] (ACR). RADIATION OPTIMIZATION: All CT scans at this facility use at least one of these dose optimization te chniques: automated exposure control; mA and/or kV adjustment per patient size (includes targeted exa ms where dose is matched to clinical indication); or iterative reconstruction.
--- NOTE | 2023-04-15 18:36 | DI.VRAD_ITS ---
PROCEDURE INFORMATION: Exam: CT Thoracic Spine Without Contrast Exam date and time: 04/15/2023 5:51 PM Age: 77 years old Clinical indication: Other: Back pain and eval l1 to determine acuity TECHNIQUE: Imaging protocol: Computed tomography of the thoracic spine without contrast. Radiation optimization: All CT scans at this facility use at least one of these dose optimization techniques: automated exposure control; mA and/or kV adjustment per patient size (includes targeted exams where dose is matched to clinical indication); or iterative reconstruction. COMPARISON: CT THORAX CTA 11/10/2022 9:30 AM FINDINGS: Bones/joints: No thoracic spine fractures. Scattered small anterior osteophytes. Disc spaces are maintained. No obvious disc contour abnormalities. No significant spinal stenosis. Soft tissues: Unremarkable. Lungs: The visualized lung shows bibasilar scarring. IMPRESSION: No acute findings in the thoracic spine. PROCEDURE INFORMATION: Exam: CT Lumbar Spine Without Contrast Exam date and time: 04/15/2023 5:51 PM Age: 77 years old Clinical indication: Other: Back pain and eval l1 to determine acuity TECHNIQUE: Imaging protocol: Computed tomography of the lumbar spine without contrast. Radiation optimization: All CT scans at this facility use at least one of these dose optimization techniques: automated exposure control; mA and/or kV adjustment per patient size (includes targeted exams where dose is matched to clinical indication); or iterative reconstruction. COMPARISON: CR XR LUMBAR SPINE COMPLETE 04/15/2023 4:59 PM FINDINGS: Bones/joints: Fracture of L1 involving the mid anterior cortex extending into the mid superior endplate. 10-20% anterior wedging of L1. No fracture fragment extends into the spinal canal. 5 mm anterolisthesis of L4 on L5. Bulky osteophytes, moderate to severe disc space narrowing and vacuum phenomenon at L2-L3. Osteophytes, mild disc space narrowing and vacuum phenomenon at L3-L4. Posterior disc and osteophytes, facet arthropathy at L2-L3. Osteophytes, disc bulge and facet arthropathy at L3-L4 results in [id number] spinal stenosis. Pseudo disc secondary to the spondylolisthesis, facet arthropathy and hypertrophy of the ligamentum flavum results in moderate to severe spinal stenosis at L4-L5. Soft tissues: Unremarkable. IMPRESSION: 1. Acute L1 compression fracture. 2. Grade 1 spondylolisthesis of L4 on L5 secondary to facet arthropathy. 3. 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 Dictated and Authenticated by: Paulie Ochoa MD. Ordering:TAYLOR Dukes MD
[2023-04-15 18:39] VITALS: BP 116/66; PULSE 68; RESP 16; TEMP 37; O2SAT 99
[2023-04-15] MEDS: traMADol 50 MG TAB PO (19:14)
== END 2023-04-15 19:17 | disposition home or self-care (01) ==
PROVIDERS: Emergency Provider Registered Nurse Emergency; PCP Family Medicine
DX: S32.010A Wedge compression fracture of first lumbar vertebra, initial encounter for closed fracture (principal); S61.411A Laceration without foreign body of right hand, initial encounter; S80.811A Abrasion, right lower leg, initial encounter; I25.10 Atherosclerotic heart disease of native coronary artery without angina pectoris; I10 Essential (primary) hypertension; Z23 Encounter for immunization; W20.8XXA Other cause of strike by thrown, projected or falling object, initial encounter; Y93.H2 Activity, gardening and landscaping; Y92.017 Garden or yard in single-family (private) house as the place of occurrence of the external cause; M47.816 Spondylosis without myelopathy or radiculopathy, lumbar region; M48.061 Spinal stenosis, lumbar region without neurogenic claudication
CPT/HCPCS: 99284; 70450; 71045; 72110; 72128; 72131; 73120; 73590

== ENCOUNTER → 2023-07-31 10:53 | Outpatient (BNVA) | payer OTHER, SELFPAY | PROVIDERS: PCP Family Medicine; Referring Provider Family Medicine; Visit Provider Surgery | DX: K43.9 Ventral hernia without obstruction or gangrene (principal); Z90.49 Acquired absence of other specified parts of digestive tract; Z90.79 Acquired absence of other genital organ(s) | CPT/HCPCS: 99215 ==

== ENCOUNTER 2023-08-16 18:18 | Emergency (ER) | payer OTHER, SELFPAY ==
[2023-08-16 18:22] VITALS: BP 136/84; PULSE 69; RESP 18; TEMP 36.5; O2SAT 98
--- NOTE | 2023-08-16 18:36 | W.ED.GENAD ---
Discharge Plan Disposition Patient Disposition: Home Condition: Good Discharge Details Clinical Impression: Food impaction of esophagus Primary Care Provider: Rosi Rosario ED Provider: Ronnie Cuevas Home Meds and New Rx's Prescriptions: Continued Metamucil 3.4 gram/5.4 gram powder 1 tbs PO BID cholecalciferol (vitamin D3) 1,000 unit capsule 1,000 unit PO DAILY famotidine [Pepcid] 40 mg tablet 40 mg PO DAILY Qty: 90 5RF ibuprofen 600 mg tablet 600 mg PO BID PRN (Reason: pain) Qty: 60 1RF cyanocobalamin (vitamin B-12) 500 mcg lozenge 500 mcg PO DAILY xxspxmz-yvfhhrle-hcel 12.5-625-125 mg capsule 1 cap PO DAILY acetaminophen [Tylenol] 325 mg tablet 325 mg PO ONCE PRN zinc 50 mg tablet 50 mg PO DAILY PRN turmeric root extract 500 mg capsule 500 mg PO DAILY PRN omega-3 fatty acids-fish oil 1 EACH capsule 1 cap PO DAILY amlodipine 5 mg tablet 5 mg PO DAILY Qty: 90 4RF doxycycline hyclate 50 mg capsule 50 mg PO DAILY Patient Comments: TAKE ONE CAPSULE BY MOUTH EVERY DAY Discharge Instructions Additional Instructions: You were seen for difficulty swallowing likely related to a food impaction. Luckily, this appears to have passed on its own while you were here. Please be sure to chew your food and eat slowly. Follow-up with primary care as it may be time for repeat endoscopy. Return to ED with further swallowing problems, shortness of breath, chest pain. HPI General Date/Time Provider Initiated Documentation: 08/16/23 18:35. HPI Narrative: Patient presents to ED after eating dinner with inability to swallow saliva or water. He has had food impaction in the past, 2018 to be exact. He is not having any difficulty breathing. He was eating a stew with meat in it so likely this is meat impaction. He has no other complaints Related Data Home Medications Medication Instructions Recorded Confirmed omega-3 fatty acids-fish oil 300 1 cap PO DAILY 10/04/12 08/16/23 mg-1,000 mg capsule cholecalciferol (vitamin D3) 25 1,000 unit PO DAILY 03/09/18 08/16/23 mcg (1,000 unit) capsule psyllium husk 3.4 gram/5.4 gram 1 tbs PO BID 03/09/18 08/16/23 oral powder (Metamucil) cyanocobalamin (vitamin B-12) 500 500 mcg PO DAILY 04/08/21 08/16/23 mcg lozenges acetaminophen 325 mg tablet 325 mg PO ONCE PRN 04/13/21 08/16/23 (Tylenol) calcium wfhnapiqt-rzlsteim-cyjk 1 cap PO DAILY 04/13/21 08/16/23 12.5 mg-625 mg-125 mg capsule amlodipine 5 mg tablet 5 mg PO DAILY #90 tab-caps 07/04/22 08/16/23 doxycycline hyclate 50 mg capsule 50 mg PO DAILY 12/06/22 08/16/23 famotidine 40 mg tablet (Pepcid) 40 mg PO DAILY #90 tabs 12/21/22 08/16/23 ibuprofen 600 mg tablet 600 mg PO BID PRN pain #60 tabs 07/14/23 08/16/23 turmeric root extract 500 mg 500 mg PO DAILY PRN 07/31/23 08/16/23 capsule zinc 50 mg tablet 50 mg PO DAILY PRN 07/31/23 08/16/23 Previous Rx's Medication Instructions Recorded amlodipine 5 mg tablet 5 mg PO DAILY #90 tab-caps 07/04/22 famotidine 40 mg tablet (Pepcid) 40 mg PO DAILY #90 tabs 12/21/22 ibuprofen 600 mg tablet 600 mg PO BID PRN pain #60 tabs 07/14/23 Allergies Allergy/AdvReac Type Severity Reaction Status Date / Time morphine Allergy Severe THROAT Verified 08/16/23 18:42 SWELLING simvastatin AdvReac Unknown INTOLERANT Verified 08/16/23 18:42 General Stated Complaint: Nausea/Vomit/Diar ARIES: 3 Review of Systems Narrative: Per HPI Exam Narrative Exam Narrative: Const: WDWN elderly male in NAD. HEENT: NC/AT. Normal facial exam. Eyes: Normal conjunctiva and sclera. Neck: Supple. Trachea midline. Lungs: Normal respiratory effort. Lungs are clear. Cor: RRR without murmur/gallop. Neuro: A+O x 3. Normal speech, mentation, gait. Cranial nerves II - XII grossly intact. No gross motor or sensory deficit. Course Vital Signs Vital signs: Vital Signs Temperature 97.7 F 08/16/23 18:22 Pulse 69 08/16/23 18:22 Respiratory Rate 18 08/16/23 18:22 Blood Pressure 136/84 08/16/23 18:22 Pulse Oximetry 98 08/16/23 18:22 Temperature 97.7 F 08/16/23 18:22 Temperature Source Tympanic 08/16/23 18:22 Pulse 69 08/16/23 18:22 Respiratory Rate 18 08/16/23 18:22 Blood Pressure 136/84 08/16/23 18:22 Blood Pressure Position Sitting 08/16/23 18:22 Pulse Oximetry 98 08/16/23 18:22 Oxygen Delivery Method Room Air 08/16/23 18:22 Oxygen Flow Rate 0 08/16/23 18:22 Pain Level 0 08/16/23 18:22 Medical Decision Making Patient presenting to ED with likely food impaction after eating stew with meat. He is unable to handle secretions but is having no difficulty breathing. Will place IV and give glucagon followed by nitro followed by Diet Coke if no improvements. Just prior to IV being placed patient reports resolution of symptoms and feels much better. He is able to drink a full glass of water without difficulty. Patient will be discharged home to follow-up with primary care. May need repeat EGD. Encouraged to eat slowly and chew his food especially meat. Return precautions provided. Quality:SDOH Health Related Social Needs: No Data to Display PFSH All Active Problems Food impaction of esophagus (Acute) Coronary artery calcification (Acute) Gallstones (Acute) Abdominal wall hernia (Chronic) Recurrent depression (Chronic) Essential hypertension (Acute 04/08/13) Generalized osteoarthrosis of multiple sites (Acute) right ankle Hyperlipidemia (Acute) Rosacea (Acute) Sensorineural hearing loss, bilateral (Acute 09/14/15) Incontinence of feces (Acute) Chronic insomnia (Acute) Arthritis of right glenohumeral joint (Acute) 40 mg corticosteroid injection 09/14/22 Medical History Esophagitis Dysphagia 2004- HH, esophageal ring and presbyesophagus. Normal esophagogastroduodenoscopy (EGD) History of tobacco use quit 06/19/1979; smoked for 25 yrs History of left heart catheterization (~2007) non obstructive disease Raised prostate specific antigen Closed right ankle fracture DJD Peptic ulcer disease 2004- H. pylori positive treated Adenomatous polyp of colon s/p sigmoid resection for large polyp 2009 History of elevated PSA CAD (coronary artery disease) chest pain 2007- cath- nonobstructive Recurrent anxiety Hx of sciatica Surgical History History of esophagogastroduodenoscopy (~11/2022) History of dilation of urethra History of hemicolectomy RIGHT HEMICOLECTOMY, 02/25 OPEN HEMICOLECTOMY @ 40CM TO REMOVE TUBULAR ADENOMA COVERING 1/3 OF BOWEL WALL. Status post prostatectomy enlarged, no cancer per pt History of esophagogastroduodenoscopy (EGD) (05/29/18) 05/29/18 - EGD - Dr Rome - focal intestinal metaplasia and active reflux, repeat 6 mos. Ranitidine BID. Urethral Dilation Sigmoid resection for polyps 2008 Colonoscopy - MAC (03/29/17) Family History Mother , age 81 Neoplasm Alzheimers disease Father , age 75 Heart disease Sister , age 71 Heart disease Alzheimers disease Sister , age 79 Heart disease Neoplasm Alzheimers disease Brother , age 52 Heart disease Brother , age 45 Heart disease Maternal Grandfather No problems noted. Paternal Grandfather No problems noted. Maternal Grandmother No problems noted. Paternal Grandmother No problems noted. FAMILY HISTORY Diabetes Sister , age 62 Neoplasm Heart disease Brother Heart disease Social History Smoking/Tobacco Use Status: Former Tobacco Use tobacco type: cigarettes Quit Date: 06/19/79 Pack-years: 20 Second Hand Exposure: Yes Smoking risk assessment performed?: Yes Alcohol Intake: current Alcohol Intake frequency: 0-2 drinks per day Alcohol type: wine and hard liquor Drug use: Rarely Substance use type: marijuana Adopted: No Household members: significant other Housing: house Number of Children: 3 number of grandchildren: 4 Communication Needs: Hard of Hearing Education Level: elementary school Details: 7th grade Do you need help understanding health information?: Often current occupation: Retired from [employer] and [employer]. Pets and animals: No Sexually active: Yes Current gender identity: male What is your relationship status?: How often do you talk on the phone with friends or family?: three or more times per week How often do you get together with friends or relatives?: once per week Do you belong to any clubs or organized social groups?: no Panel score (0-1 are the most socially isolated patients): 2 What type of physical activity do you participate in: none and other Details: chores Frequency: daily [place]/Buddhist: No preference Agree to transfusion: Yes (Maybe) Seatbelt use: always Drive intox or ride w/intox light truck driver: No Firearms in home: Yes Firearms unloaded and locked: Yes Do you feel safe at home: Yes Do you feel safe in your relationship?: Yes Victim of physical abuse: No Victim of emotional abuse: No Victim of sexual abuse: No
[2023-08-16 19:44] VITALS: PULSE 89; RESP 18; TEMP 36.4; O2SAT 96
== END 2023-08-16 19:45 | disposition home or self-care (01) ==
PROVIDERS: Emergency Provider Emergency Medicine; PCP Family Medicine
DX: T18.128A Food in esophagus causing other injury, initial encounter (principal); R11.2 Nausea with vomiting, unspecified; W44.F3XA Food entering into or through a natural orifice, initial encounter
CPT/HCPCS: 99281; 99283

== ENCOUNTER → 2023-08-24 01:25 | Outpatient (CLI) | payer OTHER, SELFPAY ==
[2023-08-24 13:33] LABS: CREATININE 0.9 mg/dL (0.70-1.30); Estimated GFR 87.42 (mL/min/1.73m2)
[2023-08-24] MEDS: Omnipaque 350 MG/ML 100 ML BTL IJ (15:05)
[2023-08-24] MEDS: Normal Saline - Diluent 50 ML VIAL IJ (15:05)
[2023-08-24] MEDS: Barium Sulfate 2% W/V-Berry Smoothie 450 ML BTL PO ×2 (15:06→15:07)
--- NOTE | 2023-08-24 15:15 | DI.CT_ITS ---
Exam(s) CT ABDOMEN PELVIS W EXAM: CT ABDOMEN PELVIS W CLINICAL HISTORY: preop,inguinal vs incisional,hernia,h/o hemicolectomy,urethral dilatation. TECHNIQUE: Imaging Protocol: Axial computed tomography images with coronal and sagittal reformatted images were created and reviewed CONTRAST MATERIAL: Intravenous: Omnipaque-350 100cc Oral: Yes. Oral contrast was also administered for bowel opacification. COMPARISON: CT CT THORAX ABDOMEN CTA from 04/08/[address] THORACIC LUMBAR SPINE WO from 04/15/2023 FINDINGS: VISUALIZED LUNG BASES: No nodules nor pleural effusions evident. Pericardium is not thickened but ag ain exhibits significant calcification in the anterior pericardium. Heart size is upper normal. The re are no calcified pleural plaques evident in the visualized lung bases. ABDOMEN: There is no ascites. GI: No hiatal hernia. There is a large medial duodenal diverticulum again noted overlying the pancre atic head, this diverticulum measuring approximately 6 cm wide by 4.5 cm AP by 4 cm craniocaudal and this large mushroom shaped duodenal diverticulum appears to be originating off the superior wall of t he 4th part of the duodenal just proximal to the ligament of Treitz. LIVER: There are no focal hepatic lesions evident. No dilated intrahepatic ducts. GALLBLADDER/BILIARY: There are multiple gallstones layering near the gallbladder neck level. Gallbla dder is mildly distended but not obviously edematous. There is no pericholecystic fluid. CBD is not dilated. PANCREAS: Pancreatic duct diameter is slightly prominent throughout its length, measuring 4 mm, uncha nged from previous. There is no obvious pancreatic mass. No pancreatic parenchymal calcifications. No peripancreatic fluid. SPLEEN: Spleen is not enlarged. No obvious intrasplenic lesions. Splenic and portal veins are paten t. ADRENALS: There are no significant adrenal masses. KIDNEYS:There are 2 small nonobstructive calculi in the lower pole calyx region of the right kidney, measuring 2 and 3 mm. Similar to previous. There are small cortical cysts in the kidneys ranging up to 2 cm size, these not requiring further investigation. There are no solid renal masses. There ar e no hydronephrosis. No hydroureter. No radiopaque calculi seen in the lumen of the urinary bladder .. ABDOMINAL AORTA: Calcified but not significantly enlarged. Common iliac arteries are also calcified but not enlarged. LYMPH NODES:There is no retroperitoneal nor paraaortic adenopathy. ABDOMINAL WALL: Fat containing left inguinal hernia noted. This extends down towards the scrotum. T his hernia sac measures approximately 11 cm length by 3 cm wide. Contains fat but no bowel loops. GI: There is no evidence of bowel obstruction, free air, nor abscess. PELVIS: GI: No evidence of appendicitis.There diverticuli in the sigmoid but no evidence of acute diverticuli tis. There also diverticuli noted in the left side of the colon. LYMPH NODES: There is no intrapelvic nor inguinal adenopathy. REPRODUCTIVE: Prostate mildly enlarged. URINARY BLADDER: Some thickening of the anterior wall the urinary bladder is noted. OSSEOUS: There is a compression fracture of L1 vertebral body which was acute on 04/16/2023 but has s ignificantly loss further height and further wedging demonstrated when compared to that study. There is mild posterior bulging of the posterior cortex. No prominent canal stenosis. Again noted is adv anced chronic disc space narrowing at L2-3, moderate disc space narrowing at L3-4 and degenerative an terolisthesis of L4 upon L5. IMPRESSION: 1. Large fat only containing left inguinal hernia with hernia sac measuring 11 cm length. 2. L1 compression fracture which was acute on 04/15/2023 has lost further height and exhibits further wedging when compared to the prior study. 3. 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 Pancreatic duct is slightly prominent throughout its length (4 mi llimeters) but there does not appear to be pancreatic mass nor pancreatic calcifications. 4. Cholelithiasis. Multiple gallstones. No obvious acute cholecystitis nor dilatation of the CBD. 5. There are 2 small nonobstructive calculi in the lower pole right kidney, similar to previous. Th ere is no hydronephrosis. Thickening of the anterior urinary bladder wall is noted. 6. Sigmoid diverticulosis but no evidence of acute diverticulitis. No appendicitis. Other findings as above. RADIATION DOSE DELIVERED: Total DLP DATA REPOSITORY: All CT scans at this facility are submitted to the National Radiology Data Registry (NRDR) Dose Index Registry (DIR) with the [employer] (ACR). RADIATION OPTIMIZATION: All CT scans at this facility use at least one of these dose optimization te chniques: automated exposure control; mA and/or kV adjustment per patient size (includes targeted exa ms where dose is matched to clinical indication); or iterative reconstruction.
== END ==
PROVIDERS: PCP Family Medicine; Visit Provider Surgery
DX: K43.9 Ventral hernia without obstruction or gangrene (principal); Z90.49 Acquired absence of other specified parts of digestive tract; Z90.79 Acquired absence of other genital organ(s)
CPT/HCPCS: 74177; 82565; J3490

== ENCOUNTER → 2023-09-11 01:46 | Outpatient (CLI) | payer OTHER, SELFPAY ==
--- NOTE | 2023-09-11 11:30 | DI.US_ITS ---
APPROVED REPORT EXAM: Comprehensive 2D, Doppler, and color-flow Echocardiogram Patient Location: Out-Patient Machine Bender: Italo Thompson RDCS (AE) Indications: CAD, HTN, HLD, SMOKER, PREOP Conclusion Normal left ventricular wall tickness and chamber size. EF is 60%. Wall motion is normal Normal right ventricular size and function Atria are normal in size The aortic valve is mildly sclerotic, trileaflet without stenosis or regurgitation Normal estimated right ventriular systolic pressure 27 mmHg Wall motion Left Ventricle The left ventricle is normal size. The left ventricular systolic function is normal. The left ventric ular ejection fraction is within the normal range. There is normal left ventricular wall thickness. T here is normal LV segmental wall motion. There is no ventricular septal defect visualized. LVEF is 60 %. Right Ventricle The right ventricle is normal size. The right ventricular systolic function is normal. Atria The left atrium size is normal. The right atrium size is normal. The interatrial septum is intact wit h no evidence for an atrial septal defect. Aortic Valve The aortic valve is mildly sclerotic Aortic valve is trileaflet. There is no aortic valvular stenosis . No aortic regurgitation is present. Mitral Valve The mitral valve is normal in structure. No evidence of mitral valve stenosis. There is no mitral aliza ve regurgitation noted. Tricuspid Valve The tricuspid valve is normal in structure. There is no tricuspid valve stenosis. Mild tricuspid regu rgitation. The RVSP is 26.8 mmHg. Pulmonic Valve The pulmonary valve is normal in structure. There is no pulmonic valvular stenosis. There is no pulmo anthony valvular regurgitation. Great Vessels The aortic root is normal in size. The ascending aorta is normal in size. Aortic arch is normal in ca liber. IVC is normal in size and collapses >50% with inspiration. Pericardium There is no pericardial effusion. 2D Dimensions IVSD d PLAX 0.86 cm M: 0.6-1.2 Ao Root d 2.98 cm M: 3.1 - 3.7 LVPW d PLAX 0.88 cm M: 0.6 - 1.2 Ao Asc Diam d 3.40 cm M: 2.6 - 3.4 LVID d PLAX 4.23 cm M: 4.2 - 5.8 LVDs 2.88 cm M: 2.5 - 4.0 LV EF Teichholz 60.2 % FS 31.78 % LV EDV (Teich) 79.7 mL LV ESV (Teich) 31.7 mL Stroke Vol Index (Teich) 27.41 M-Mode TAPSE 1.35 cm (M/F) >1.7 Auto EF LV EDV A4C 100.5 mL LV EDV A2C 102.1 mL LV EDV BP 102.4 mL LV ESV A4C 40.4 mL LV ESV A2C 40.5 mL LV ESV BP 41.8 mL LVEF(%) A4C 59.8 % LVEF(%) A2C 60.3 % LVEF(%) BP 59.2 % LV SV A4C 60.1 ml LV SV A2C 61.6 ml LV SV BP 60.6 ml LV CO A4C 4.2 L/min LV CO A2C 4.6 L/min LV CO BP 4.4 L/min HR A4C 70.15 BPM HR A2C 75.16 BPM LV EDV Index (BP) LA Volume LA Length A4C 4.6 cm LA Length A2C 4.5 cm LA Area A4C s 14.15 cm2 LA Area A2C s 11.95 cm2 LA Vol A4C A-L 36.74 mL LA Vol A2C A-L 27.21 mL LA Vol Biplane A-L 32.2 mL LA Vol/BSA A4C A-L LA Vol/BSA A2C A-L LA Vol/BSA BP A-L 18.4 mL/m2 LA Vol A4C MOD 34.6 mL LA Vol A2C MOD 26.3 mL LA Vol BP MOD 30.5 mL RA Volume RA Area A4C 5.9 cm2 RA ESV A4C (A-L) 7.8mL RA Vol/BSA A4C A-L RA Length A4C 3.8 cm RA ESV A4C (MOD) 7.6mL LV Diastology MV E' medial 0.079 (>0.07 m/s) MV E Vmax 0.86 (0.4-1.3 m/s) MV E/E' MED 11.00 (<14) MV A Vmax 1.00 (0.4-1.3 m/s) MV E' lateral 0.089 (>0.1 m/s) E/A Ratio 0.9 MV E/E' LAT 9.71 (<14) MV E' Average 0.084 m/s MV E/E'(average) 10.32 Aortic Valve AoV Vmax 1.50 m/s LVOT Vmax 0.80 m/s AoV Peak Grad 8.9 mmHg LVOT Peak Grad 2.5 mmHg AoV Area (Vmax) 1.73 cm2 LVOT VTI 0.176 m AoV VTI 0.323 m LVOT Mean Grad 1.7 mmHg AoV Mean Sohan. 0.98 m/s LVOT SV 57.27 mL AoV Mean Grad 4.6 mmHg LVOT Diam s 2.00 cm AoV Area (VTI) 1.77 cm2 Velocity Ratio 0.53 Mitral Valve MV DT 228 (160-240 msec) Pulmonary Valve PV Vmax 0.87 (0.5-1.5 m/s) RVOT Vmax 0.57 m/s PV Peak Grad 3.1 mmHg RVOT Peak Gr. 1.3 mmHg PV Mean Sohan 0.65 m/s RVOT VTI 0.091 m PV Mean Grad 1.9 mmHg RVOT Mean Gr. 0.8 mmHg Tricuspid Valve RA Pressure 3.00 mmHg TR Vmax 2.44 m/s TR Peak Grad 23.8 mmHg RVSP (TR) 26.8 mmHg
== END ==
PROVIDERS: PCP Family Medicine; Visit Provider Surgery
DX: I25.10 Atherosclerotic heart disease of native coronary artery without angina pectoris (principal)
CPT/HCPCS: 93306

== ENCOUNTER → 2023-09-20 13:25 | Outpatient (BNVA) | payer OTHER, SELFPAY | PROVIDERS: PCP Family Medicine; Referring Provider Family Medicine; Visit Provider Surgery | DX: K57.30 Diverticulosis of large intestine without perforation or abscess without bleeding (principal); K40.90 Unilateral inguinal hernia, without obstruction or gangrene, not specified as recurrent; K43.9 Ventral hernia without obstruction or gangrene | CPT/HCPCS: 99214 ==

== ENCOUNTER 2023-10-31 06:06 | Day surgery (SDC) | payer OTHER, SELFPAY ==
[2023-10-31] VITALS (9 sets, daily range): BP systolic 94–134; BP diastolic 54–80; PULSE 45–63; RESP 15–20; TEMP 36.2–36.7; O2SAT 94–100; BMI 25.9
--- NOTE | 2023-10-31 06:10 | ANES.PREOP_ITS ---
General Info Date of Service Date Performed: 10/31/23 Height: 5 ft 4 in Weight: 68.663 kg Body Mass Index (BMI): 25.9 Surgical Procedure: Operation Date: 10/31/23 07:40 Proposed Procedure Side Surgeon p Herniorrhaphy Inguinal w/Mesh Left Guera Pablo, Meds Allergies and Home Medications Allergies Allergy/AdvReac Type Severity Reaction Status Date / Time morphine Allergy Severe THROAT Verified 10/31/23 06:44 SWELLING simvastatin AdvReac Unknown INTOLERANT Verified 10/31/23 06:44 Home Medication Medication Instructions Recorded omega-3 fatty acids-fish oil 300 1 cap PO DAILY 10/04/12 mg-1,000 mg capsule cholecalciferol (vitamin D3) 25 1,000 unit PO DAILY 03/09/18 mcg (1,000 unit) capsule psyllium husk 3.4 gram/5.4 gram 1 tbs PO BID 03/09/18 oral powder (Metamucil) cyanocobalamin (vitamin B-12) 500 500 mcg PO DAILY 04/08/21 mcg lozenges acetaminophen 325 mg tablet 325 mg PO ONCE PRN 04/13/21 (Tylenol) calcium jstbhfvtl-aphlbtyt-mrms 1 cap PO DAILY 04/13/21 12.5 mg-625 mg-125 mg capsule doxycycline hyclate 50 mg capsule 50 mg PO DAILY 12/06/22 ibuprofen 600 mg tablet 600 mg PO BID PRN pain #60 tabs 07/14/23 turmeric root extract 500 mg 500 mg PO DAILY PRN 07/31/23 capsule zinc 50 mg tablet 50 mg PO DAILY PRN 07/31/23 pantoprazole 40 mg tablet,delayed 40 mg PO DAILY #90 tabs 09/20/23 release (Protonix) amlodipine 5 mg tablet 5 mg PO DAILY #90 tab-caps 09/26/23 Current Visit Medications: Current Medications Generic Name Dose Route Start Last Admin Trade Name Freq PRN Reason Stop Dose Admin Acetaminophen 1,000 mg 10/31/23 06:00 Acetaminophen 500 Mg Tab PO 11/29/23 23:59 PREOP YUE Gabapentin 600 mg 10/31/23 06:00 Gabapentin 300 Mg Cap PO 11/29/23 23:59 PREOP YUE Ondansetron HCl 4 mg/ Sodium 52 mls @ 200 mls/hr 10/31/23 00:06 Chloride IVPB 11/30/23 00:05 Q6H PRN PRN Ringer's Solution 1,000 mls @ 80 mls/hr 10/31/23 06:00 IV 11/29/23 23:59 INFUSION YUE Cefazolin Sodium/Dextrose 2 gm in 50 mls @ 100 mls/hr 10/31/23 06:00 Ancef Duplex IVPB 11/29/23 23:59 PREOP YUE IV Miscellaneous Supplies 1 each 10/31/23 06:00 Iv Access IV 11/29/23 23:59 DIRECTED YUE Sodium Chloride 0 ml 10/31/23 06:00 Normal Saline Flush 10 Ml Syr IV 11/29/23 23:59 PRN PRN Sodium Chloride 0 ml 10/31/23 06:00 Normal Saline 10 Ml Vial IJ 11/29/23 23:59 DIRECTED PRN Sterile Water 0 ml 10/31/23 06:00 Water,Injection,Sterile 10 Ml Vial IJ 11/29/23 23:59 DIRECTED PRN PFSH Active Problems Active Problems: Problem Status Onset Code 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 Normal esophagogastroduodenoscopy (EGD) History of tobacco use quit 06/19/1979; smoked for 25 yrs History of left heart catheterization (~2007) non obstructive disease Raised prostate specific antigen Closed right ankle fracture DJD Peptic ulcer disease 2004- H. pylori positive treated Adenomatous polyp of colon s/p sigmoid resection for large polyp 2009 History of elevated PSA CAD (coronary artery disease) chest pain 2007- cath- nonobstructive Recurrent anxiety Hx of sciatica Surgical History Surgical History History of esophagogastroduodenoscopy (~11/2022) History of dilation of urethra History of hemicolectomy RIGHT HEMICOLECTOMY, 02/25 OPEN HEMICOLECTOMY @ 40CM TO REMOVE TUBULAR ADENOMA COVERING 1/3 OF BOWEL WALL. Status post prostatectomy enlarged, no cancer per pt History of esophagogastroduodenoscopy (EGD) (05/29/18) 05/29/18 - EGD - Dr Rome - focal intestinal metaplasia and active reflux, repeat 6 mos. Ranitidine BID. Urethral Dilation Sigmoid resection for polyps [place] [facility] [place] Tobacco Smoking/Tobacco Use Status: Former Tobacco Use Passive smoking exposure: Yes Second hand exposure: Yes Alcohol Alcohol Intake: current Alcohol intake frequency: 0-2 drinks per day Alcohol type: wine and hard liquor Substance Use Substance use: Rarely Substance use type: marijuana Vital Signs and Lab Results Vital Signs Most Recent Vital Signs in EMR: Temp Pulse Resp BP Pulse Ox 36.7 C 63 16 119/74 100 10/31/23 06:20 10/31/23 06:20 10/31/23 06:20 10/31/23 06:20 10/31/23 06:20 Lab Results Blood Type / Crossmatch: No Data to Display Complete Blood Count: No Data to Display Complete Metabolic Panel: No Data to Display Liver Function Panel: No Data to Display Coagulation Panel: No Data to Display Cardiac Panel: No Data to Display Arterial Blood Gas: No Data to Display Venous Blood Gas: No Data to Display Pancreas Panel: No Data to Display Thyroid Panel: No Data to Display Infectious Disease: No Data to Display Blood Cultures: No Data to Display Toxicology Panel: No Data to Display Imaging and Studies Imaging and Studies Study information below may be from another EMR and interpreted by another provider. Please see original notes in EMR for more complete details. EKG Summary: 11/08: sinus. Echocardiogram Summary: 09/09: LVEF 60%, AoV sclerotic without stenosis, PAS 27 mmhg Carotid Artery Summary:: CT neck, 11/08: mild atherosclerosis, no occlusion or sig stenosis. Anesthesia Assessment and Plan Anesthesia History Personal History: No History of Anesthesia Complications Family History: No Family History of Anesthesia Complications Exercise Tolerance Exercise Tolerance: Metabolic Equivalents>4 Cardiac & Pulmonary Exam Cardiac Exam: Normal S1/S2 Heart Sounds Pulmonary Exam: Clear Bilateral Breath Sounds Implantable Cardiac Device Does patient have a Pacemaker or an ICD?: No Airway Exam Known Difficult Airway: No Mallampati Class: 3 Mouth Opening: Narrow (< 3cm) Thyromental Distance: Less than 3 cm Neck Range of Motion: Limited ROM Neck Circumference: Normal Teeth Condition: Normal Dentition ASA Classification ASA Score: ASA 2 Emergency Case?: No NPO Status NPO Status: NPO Clears >2 hours, Solids >8 hours Anesthesia Plan Resuscitation Status: Full Code Anesthesia Technique: General Anesthesia Airway Planned: LMA Pain Management: Surgeon and patient request nerve block Monitors Used: Standard Monitors Preoperative Comments:: 77 yo male for hernia repair. Sig PMHx: HTN (amlodipine), non-obstructive CAD (non obstructive cath 2007, no home ntg, no chest pain with exertion), neck pain, dysphagia/GERD (pantoprazole, well controlled), anxiety/depression, s/p hemicolectomy, s/p prostatectomy, former smoker, occ EtOH. Previous Anes: - colo, prop, natural airway, no issues. - EGD, prop (50 mg and gtt), natural airway, no issues. - EGD, lidocaine swallow, prop, natural airway, no issues.
[2023-10-31] MEDS: Lactated Ringers 1,000 ML 80 ML IV (06:45)
[2023-10-31] MEDS: Acetaminophen 500 MG TAB 1000 MG PO (06:52)
[2023-10-31] MEDS: Gabapentin 300 MG CAP 600 MG PO (06:52)
[2023-10-31] MEDS: ceFAZolin 2 GM/50 ML BAG IVPB (07:38)
--- NOTE | 2023-10-31 07:53 | W.ANESNERVE ---
Nerve Block Single Injection Procedure Date and Time Date Performed: 10/31/23 Procedure Start: 07:45 Location Where Procedure Performed Procedure Location: Operating Room Procedure Stop: 07:49 Reason Performed: Postoperative Analgesia Requesting Provider: Guera Pablo Timeout Performed Timeout Performed: Yes Monitoring Used ECG, Blood Pressure, SpO2 and ETCO2 Sterility Sterility: Hand Hygiene, Surgical Cap, Surgical Mask, Sterile Gloves and Chlorhexidine Sedation Given During Procedure Sedation Given (Indicate Dose Given): No Sedation given Patient Mental Status Patient Mental Status: Performed under general anesthesia Nerve Block 1st Nerve Block: Laterality: Left Block Type: TAP Unilateral Ultrasound Image Saved?: Yes Needle / Catheter Used: 100mm SonoPlex II Local Anesthetic Bolus (Indicate Dose Given): Bupivacaine 0.375% Dose:: 10 mL Additives (Indicate Dose Given): Epinephrine to make 1:200,000 (5mcg/ml) Dose:: 50 mcg and Precedex Dose:: 15 mcg Ultrasound: Sterile probe cover and gel used Nerve Stimulator: Not Used Paresthesia: None Procedure Tolerated: No Complications Procedure Outcome: Successful Performed By: Chao Rushing
[2023-10-31] MEDS: Bupivacaine 0.25% Pres-Free W/EPI 30 ML VIAL (08:11)
--- NOTE | 2023-10-31 08:54 | W.PM.OP ---
Date of service: 10/31/23 Time of Service: 08:54 Operative Note Operative Note DATE OF PROCEDURE: 10/31/23 PRE-OP DIAGNOSIS: left inguinal hernia POST-OP DIAGNOSIS: same (indirect ) PROCEDURE: Open left inguinal hernia repair with mesh SURGEON: Guera Farias SUPERVISOR [employer]: Myrna Goyal ANESTHESIA TYPE: Local By Surgeon, General LMA/ETT and Primary Nerve Block Refer to Anesthesia Record ESTIMATED BLOOD LOSS: 5 PATHOLOGY: none sent COMPLICATIONS: None Patient was transported to: PACU Patient's condition: stable Procedure Description: INDICATIONS: The pt is here today for surgery regarding symptomatic left inguinal hernia that has failed outpatient conservative medical management and he is here today for repair. Informed consent was obtained, explaining risks and benefits of the procedure including but not limited to bleeding, infection, pneumonia, blood clots, chronic pain, chronic numbness, damage to testicle resulting in removal, recurrence of hernia, reaction to Mesh necessitating removal, and other unforetold complications, and complications of anesthesia-which were addressed by the OPERATOR [employer]. The patient is marked in preOp prior to the procedure DESCRIPTION OF PROCEDURE:? The pt is then brought to the operative room suite. Anesthesia was administered per the Department of Anesthesia. ?A nerve block was performed by anesthesia under US guidance. The patient was prepped and draped in the usual sterile fashion using ChloraPrep scrub solution. Pause for the cause was done. He did receive preop IV antibiotics, and 30 mL of .25% Marcaine w/ epinephrine was used for local anesthetization. A #12 blade was used to make an incision over the external ring. Electrocautery used to provide hemostasis and dissect down to the fascia. The fascia was pretty much obliterated and there was nothing to open. The cord is elevated. The nerve was not identified. There is a medium cord lipoma-is excised..? Electro-cautery is used to provide hemostasis. A [place] drain was placed around the cord to assist in mobilization. The cord was explored. ?There was is a large hernia sac on the cord. There is no direct hernia pushing through the floor. The hernia sac is dissected off the cord using a combination of blunt dissection and electrocautery.? Electrocautery is used to provide hemostasis.?? There is colon within the hernia sac.? The colon is dissected off of sac and returned to the abdomen. The sac is closed and a high ligation of the sac is then performed. The hernia sac is than inverted and returned to the abdominal cavity.? A XL size plug is than inserted into the defect through the internal ring, and over sewn to tighten up the ring with 2-0 vicryl.? Please see RN notes from Lot number of the [employer] mesh patch/plug.? The cord structures are still able to freely move through the ring itself.? The patch was then placed onto the floor, and using 2-0 Vicryl, sewn into the pubic tubercle and the shelving portions of the inguinal ligament, in the standard Lichenstein fashion.? ?The tails of the mesh are brought around the cord, sewn together w/ 2-0 Vicryl, and tucked under the external oblique.? The wound was copiously irrigated. There was no bleeding noted. The drain was removed. All structures are returned to normal anatomical position. The nerve is not sewn into the mesh, nor caught up in any sutures. The external oblique is re-approximated using 2-0 vicryl in a running fashion. ?Deep tissue was approximated with 3-0 Vicryl in a running fashion, and skin was approximated with 4-0 Monocryl in a running subcuticular fashion. Skin glue and sterile dressings are applied. The patient tolerated the procedure without complications to recovery in stable condition. GUERA FARIAS, DO
--- NOTE | 2023-10-31 09:01 | PDOC.DSDIS_ITS ---
Date of service: 10/31/23 Time of Service: 09:01 Discharge Plan Disposition Patient Disposition: Home Condition: Good Discharge Details Reason For Visit: [facility] Attending Provider: Guera Pablo Primary Care Provider: Rosi Rosario Home Meds and New Rx's Prescriptions: New tramadol 50 mg tablet 50 mg PO Q4H PRNQty: 14 0RF Continued Metamucil 3.4 gram/5.4 gram powder 1 tbs PO BID cholecalciferol (vitamin D3) 1,000 unit capsule 1,000 unit PO DAILY ibuprofen 600 mg tablet 600 mg PO BID PRN (Reason: pain) Qty: 60 1RF Patient Comments: Pt reports havent taken since preop visit with surgeon cyanocobalamin (vitamin B-12) 500 mcg lozenge 500 mcg PO DAILY sserusu-rwqmjbjb-igip 12.5-625-125 mg capsule 1 cap PO DAILY acetaminophen [Tylenol] 325 mg tablet 325 mg PO ONCE PRN zinc 50 mg tablet 50 mg PO DAILY PRN turmeric root extract 500 mg capsule 500 mg PO DAILY PRN pantoprazole [Protonix] 40 mg tablet,delayed release (DR/EC) 40 mg PO DAILY Qty: 90 5RF omega-3 fatty acids-fish oil 1 EACH capsule 1 cap PO DAILY amlodipine 5 mg tablet 5 mg PO DAILY Qty: 90 4RF doxycycline hyclate 50 mg capsule 50 mg PO DAILY Patient Comments: TAKE ONE CAPSULE BY MOUTH EVERY DAY Discharge Instructions Activity:: see above Remove Dressings/Wound Care:: 24 hours Shower/Bathe:: 24 hours Diet:: As Tolerated Discharge Orders Discharge Orders: Discharge Order (Routine); Ordered 10/31/23 Ordered By: Guera Pablo DS: Diagnosis Discharge Diagnosis (1) Essential hypertension: Status: Acute (2) Coronary artery calcification: Status: Acute (3) Congenital diverticulum of duodenum: Status: Acute (4) Gallstones: Status: Acute (5) Diverticula of colon: Status: Acute (6) Left inguinal hernia: Status: Acute Asessment and Plan: The patient is doing well post-op from their [facility] surgery.? They are having no nausea or vomiting. They are tolerating liquids and a snack. The pt is not having any chest pain or SOB.? Their pain is adequately controlled. They have been able to urinate.? ?HEENT:? no eye pain/drainage/redness/swelling. Mild sore throat ?Cardio- NSR, no chest pain, BP stable- see VS record ?Pulm: no sob or productive cough. No hemoptysis ?Incision- dressing is c/d/i w/ no excessive bleeding or drainage ?I discussed with the patient the findings at the time of surgery and the patient?s progress. ?We reviewed expectations at home; what the patient could expect for recovery time, and in the post-operative period.? We discussed the importance of walking to avoid blood clots and pneumonia.? We discussed and reviewed the patient's post-operative wound care and dressing needs.?? We reviewed their step-branch pain management plan, Rx called to the pharmacy of their choice.? We reviewed activity and limitations-see discharge instructions. We reviewed warning signs, and when to seek medical attention- see d/c in structions.?? Patient was given a postoperative follow-up appointment. Patient verbalized understanding of their postoperative instructions, how do to take care of themselves and their incision, and the pain management plan. Please see discharge instructions.? (7) Compression fracture of L1 lumbar vertebra: Status: Acute
--- NOTE | 2023-10-31 09:21 | W.ANESPOSTOP ---
Postoperative Evaluation Date, Time and Location Date Performed: 10/31/23 Time Performed: :22 Patient Location: PACU Vital Signs Most Recent Imported Vital Signs: Most Recent Vital Signs Temp Pulse Resp BP Pulse Ox 36.7 C 47 L 16 125/54 L 97 10/31/23 09:16 10/31/23 09:16 10/31/23 09:16 10/31/23 09:16 10/31/23 09:16 Pain Score Most Recent Pain Score: Most Recent Pain Score Pain Level 3 10/31/23 09:16 Assessment Mental Status: Awake (Alert & Oriented to Patient Baseline) Airway and Respiratory Function: Patent airway with normal (patient baseline) respiratory exam Cardiovascular Function: Hemodynamically Stable Hydration Status: Adequately Hydrated Nausea & Vomiting: No Nausea or Vomiting Pain: Pain is tolerable per patient Peripheral Nerve Block: Patient did not receive a nerve block
[2023-10-31] MEDS: fentaNYL 100 MCG/2 ML VIAL IVP ×2 (09:35→09:41)
--- NOTE | 2023-10-31 11:21 | PDOC.DSDIS_ITS ---
Date of service: 10/31/23 Time of Service: 11:21 Discharge Plan Disposition Patient Disposition: Home Condition: Good Discharge Details Reason For Visit: [facility] Attending Provider: Guera Pablo Primary Care Provider: Rosi Rosario Home Meds and New Rx's Prescriptions: New tramadol 50 mg tablet 50 mg PO Q4H PRNQty: 14 0RF Continued Metamucil 3.4 gram/5.4 gram powder 1 tbs PO BID cholecalciferol (vitamin D3) 1,000 unit capsule 1,000 unit PO DAILY ibuprofen 600 mg tablet 600 mg PO BID PRN (Reason: pain) Qty: 60 1RF Patient Comments: Pt reports havent taken since preop visit with surgeon cyanocobalamin (vitamin B-12) 500 mcg lozenge 500 mcg PO DAILY qkbopax-bcuhrpoa-nnsw 12.5-625-125 mg capsule 1 cap PO DAILY acetaminophen [Tylenol] 325 mg tablet 325 mg PO ONCE PRN zinc 50 mg tablet 50 mg PO DAILY PRN turmeric root extract 500 mg capsule 500 mg PO DAILY PRN pantoprazole [Protonix] 40 mg tablet,delayed release (DR/EC) 40 mg PO DAILY Qty: 90 5RF omega-3 fatty acids-fish oil 1 EACH capsule 1 cap PO DAILY amlodipine 5 mg tablet 5 mg PO DAILY Qty: 90 4RF doxycycline hyclate 50 mg capsule 50 mg PO DAILY Patient Comments: TAKE ONE CAPSULE BY MOUTH EVERY DAY Discharge Instructions Additional Instructions: Dr. Pablo HERNIA REPAIR ? POSTOPERATIVE INSTRUCTIONS Patients who have this type of surgery can usually be expected to return to work within two weeks and have minimal amounts of discomfort. ? ACTIVITY: The day of surgery should be spent resting. However, you can be up for short periods of time, I.E., going to the bathroom or kitchen. Avoid lifting or straining. On the day following surgery, you can be up and about as desired. ? LIFTING: Restrict your lifting to no more than five (5) pounds for two weeks after surgery. No strenuous activity.??We will decide when you are done with restrictions and when you can return to work, at your follow-up appointment.? No sexual activity for two weeks.? We do want you up walking around. ? DIET: There are no dietary restrictions following surgery. However, you may want to start with small amounts of liquids to avoid nausea the day of surgery. ? INCISION CARE: You will notice purple skin glue closing the incision.? Do not peel this off- it will wear off on its own.? After 24 hours you may shower. The dressing may be replaced for comfort, but is not necessary. ?An ice bag may be applied to the incision for 72 hours following surgery. ? SIGNS OF INFECTION: It is not unusual to have some black and blue discoloration of the skin around the incision, but also scrotum and penis.? ?It will slowly disappear. If you have any increased redness, drainage, fever (above 100 degrees), please contact your doctor for an examination. ? DISCOMFORT: You may expect to have some mild discomfort at the incision sight. If severe pain develops you should contact your doctor for further instructions. ? URINATION: Patients who have surgery occasionally have problems urinating. If you experience problems and are not able to urinate within 6 hours following your surgery, please call your doctor immediately or go to your nearest Emergency Room for evaluation. ? DRIVING: NO driving for three (3) days after surgery, or if you are still taking narcotic pain medication.? ? MEDICATIONS: Alternate Tylenol 650mg by mouth every 8 hours and Ibuprofen 400mg every 8 hours. ?Make sure you take ibuprofen with food and not on an empty stomach. ?Take the Tylenol and ibuprofen continuously for the first 72hrs- not just when you have pain.? Use the tramadol for breakthrough pain/pain >7.? Use ICE!?? Twenty minutes on, and then off, continuously for the first 72hours. If you are taking narcotic pain medication, follow the instructions on the label and do not drive. Pain medications can make you very constipated. Make sure you are moving your bowels daily. If not, take Miralax or Milk of Magnesia.?? Anesthesia makes you very constipated.? Take a dose of milk of magnesia the morning after surgery. ? REPORT: Unusual swelling, severe pain, unresolved nausea, signs of infection, or difficulty in urination to your surgeon. Follow up in clinic with Dr. Pablo in 2 weeks.? [phone] Stand Alone Forms: Anesthesia Discharge Inst., [facility] ([facility]) Referrals: Guera Pablo, [OSTEOPATHIC DOCTOR] - Activity:: see above Remove Dressings/Wound Care:: 24 hours Shower/Bathe:: 24 hours Diet:: As Tolerated Discharge Orders Discharge Orders: Discharge Order (Routine); Ordered 10/31/23 Ordered By: Guera Pablo DS: Diagnosis Discharge Diagnosis (1) Essential hypertension: Status: Acute (2) Coronary artery calcification: Status: Acute (3) Congenital diverticulum of duodenum: Status: Acute (4) Gallstones: Status: Acute (5) Diverticula of colon: Status: Acute (6) Left inguinal hernia: Status: Acute (7) Compression fracture of L1 lumbar vertebra: Status: Acute
--- NOTE | 2023-10-31 11:23 | W.PM.DSUDISC ---
Date of service: 10/31/23 Time of Service: 11:23 Discharge Plan Disposition Patient Disposition: Home Condition: Good Discharge Details Reason For Visit: [facility] Attending Provider: Guera Pablo Primary Care Provider: Rosi Rosario Home Meds and New Rx's Prescriptions: New tramadol 50 mg tablet 50 mg PO Q4H PRNQty: 14 0RF Continued Metamucil 3.4 gram/5.4 gram powder 1 tbs PO BID cholecalciferol (vitamin D3) 1,000 unit capsule 1,000 unit PO DAILY ibuprofen 600 mg tablet 600 mg PO BID PRN (Reason: pain) Qty: 60 1RF Patient Comments: Pt reports havent taken since preop visit with surgeon cyanocobalamin (vitamin B-12) 500 mcg lozenge 500 mcg PO DAILY akhxyfb-sbvxoaxv-axky 12.5-625-125 mg capsule 1 cap PO DAILY acetaminophen [Tylenol] 325 mg tablet 325 mg PO ONCE PRN zinc 50 mg tablet 50 mg PO DAILY PRN turmeric root extract 500 mg capsule 500 mg PO DAILY PRN pantoprazole [Protonix] 40 mg tablet,delayed release (DR/EC) 40 mg PO DAILY Qty: 90 5RF omega-3 fatty acids-fish oil 1 EACH capsule 1 cap PO DAILY amlodipine 5 mg tablet 5 mg PO DAILY Qty: 90 4RF doxycycline hyclate 50 mg capsule 50 mg PO DAILY Patient Comments: TAKE ONE CAPSULE BY MOUTH EVERY DAY Discharge Instructions Additional Instructions: Dr. Pablo HERNIA REPAIR ? POSTOPERATIVE INSTRUCTIONS Patients who have this type of surgery can usually be expected to return to work within two weeks and have minimal amounts of discomfort. ? ACTIVITY: The day of surgery should be spent resting. However, you can be up for short periods of time, I.E., going to the bathroom or kitchen. Avoid lifting or straining. On the day following surgery, you can be up and about as desired. ? LIFTING: Restrict your lifting to no more than five (5) pounds for two weeks after surgery. No strenuous activity.??We will decide when you are done with restrictions and when you can return to work, at your follow-up appointment.? No sexual activity for two weeks.? We do want you up walking around. ? DIET: There are no dietary restrictions following surgery. However, you may want to start with small amounts of liquids to avoid nausea the day of surgery. ? INCISION CARE: You will notice purple skin glue closing the incision.? Do not peel this off- it will wear off on its own.? After 24 hours you may shower. The dressing may be replaced for comfort, but is not necessary. ?An ice bag may be applied to the incision for 72 hours following surgery. ? SIGNS OF INFECTION: It is not unusual to have some black and blue discoloration of the skin around the incision, but also scrotum and penis.? ?It will slowly disappear. If you have any increased redness, drainage, fever (above 100 degrees), please contact your doctor for an examination. ? DISCOMFORT: You may expect to have some mild discomfort at the incision sight. If severe pain develops you should contact your doctor for further instructions. ? URINATION: Patients who have surgery occasionally have problems urinating. If you experience problems and are not able to urinate within 6 hours following your surgery, please call your doctor immediately or go to your nearest Emergency Room for evaluation. ? DRIVING: NO driving for three (3) days after surgery, or if you are still taking narcotic pain medication.? ? MEDICATIONS: Alternate Tylenol 650mg by mouth every 8 hours and Ibuprofen 400mg every 8 hours. ?Make sure you take ibuprofen with food and not on an empty stomach. ?Take the Tylenol and ibuprofen continuously for the first 72hrs- not just when you have pain.? Use the tramadol for breakthrough pain/pain >7.? Use ICE!?? Twenty minutes on, and then off, continuously for the first 72hours. If you are taking narcotic pain medication, follow the instructions on the label and do not drive. Pain medications can make you very constipated. Make sure you are moving your bowels daily. If not, take Miralax or Milk of Magnesia.?? Anesthesia makes you very constipated.? Take a dose of milk of magnesia the morning after surgery. ? REPORT: Unusual swelling, severe pain, unresolved nausea, signs of infection, or difficulty in urination to your surgeon. Follow up in clinic with Dr. Pablo in 2 weeks.? [phone] Stand Alone Forms: Anesthesia Discharge Inst., Beverly Johnston ([facility]) Referrals: Guera Pablo, [OSTEOPATHIC DOCTOR] - Activity:: see above Remove Dressings/Wound Care:: 24 hours Shower/Bathe:: 24 hours Diet:: As Tolerated Discharge Orders Discharge Orders: Discharge Order (Routine); Ordered 10/31/23 Ordered By: Guera Pablo DS: Diagnosis Discharge Diagnosis (1) Essential hypertension: Status: Acute (2) Coronary artery calcification: Status: Acute (3) Congenital diverticulum of duodenum: Status: Acute (4) Gallstones: Status: Acute (5) Diverticula of colon: Status: Acute (6) Left inguinal hernia: Status: Acute (7) Compression fracture of L1 lumbar vertebra: Status: Acute
--- NOTE | 2023-10-31 11:24 | W.PM.DSUDISC ---
Date of service: 10/31/23 Time of Service: 11:26 Discharge Plan Disposition Patient Disposition: Home Condition: Good Discharge Details Reason For Visit: [facility] Attending Provider: Guera Pablo Primary Care Provider: Rosi Rosario Home Meds and New Rx's Prescriptions: New tramadol 50 mg tablet 50 mg PO Q4H PRNQty: 14 0RF Continued Metamucil 3.4 gram/5.4 gram powder 1 tbs PO BID cholecalciferol (vitamin D3) 1,000 unit capsule 1,000 unit PO DAILY ibuprofen 600 mg tablet 600 mg PO BID PRN (Reason: pain) Qty: 60 1RF Patient Comments: Pt reports havent taken since preop visit with surgeon cyanocobalamin (vitamin B-12) 500 mcg lozenge 500 mcg PO DAILY hrugcns-mcxskvkz-pxir 12.5-625-125 mg capsule 1 cap PO DAILY acetaminophen [Tylenol] 325 mg tablet 325 mg PO ONCE PRN zinc 50 mg tablet 50 mg PO DAILY PRN turmeric root extract 500 mg capsule 500 mg PO DAILY PRN pantoprazole [Protonix] 40 mg tablet,delayed release (DR/EC) 40 mg PO DAILY Qty: 90 5RF omega-3 fatty acids-fish oil 1 EACH capsule 1 cap PO DAILY amlodipine 5 mg tablet 5 mg PO DAILY Qty: 90 4RF doxycycline hyclate 50 mg capsule 50 mg PO DAILY Patient Comments: TAKE ONE CAPSULE BY MOUTH EVERY DAY Discharge Instructions Additional Instructions: Dr. Pablo HERNIA REPAIR ? POSTOPERATIVE INSTRUCTIONS Patients who have this type of surgery can usually be expected to return to work within two weeks and have minimal amounts of discomfort. ? ACTIVITY: The day of surgery should be spent resting. However, you can be up for short periods of time, I.E., going to the bathroom or kitchen. Avoid lifting or straining. On the day following surgery, you can be up and about as desired. ? LIFTING: Restrict your lifting to no more than five (5) pounds for two weeks after surgery. No strenuous activity.??We will decide when you are done with restrictions and when you can return to work, at your follow-up appointment.? No sexual activity for two weeks.? We do want you up walking around. ? DIET: There are no dietary restrictions following surgery. However, you may want to start with small amounts of liquids to avoid nausea the day of surgery. ? INCISION CARE: You will notice purple skin glue closing the incision.? Do not peel this off- it will wear off on its own.? After 24 hours you may shower. The dressing may be replaced for comfort, but is not necessary. ?An ice bag may be applied to the incision for 72 hours following surgery. ? SIGNS OF INFECTION: It is not unusual to have some black and blue discoloration of the skin around the incision, but also scrotum and penis.? ?It will slowly disappear. If you have any increased redness, drainage, fever (above 100 degrees), please contact your doctor for an examination. ? DISCOMFORT: You may expect to have some mild discomfort at the incision sight. If severe pain develops you should contact your doctor for further instructions. ? URINATION: Patients who have surgery occasionally have problems urinating. If you experience problems and are not able to urinate within 6 hours following your surgery, please call your doctor immediately or go to your nearest Emergency Room for evaluation. ? DRIVING: NO driving for three (3) days after surgery, or if you are still taking narcotic pain medication.? ? MEDICATIONS: Alternate Tylenol 650mg by mouth every 8 hours and Ibuprofen 400mg every 8 hours. ?Make sure you take ibuprofen with food and not on an empty stomach. ?Take the Tylenol and ibuprofen continuously for the first 72hrs- not just when you have pain.? Use the tramadol for breakthrough pain/pain >7.? Use ICE!?? Twenty minutes on, and then off, continuously for the first 72hours. If you are taking narcotic pain medication, follow the instructions on the label and do not drive. Pain medications can make you very constipated. Make sure you are moving your bowels daily. If not, take Miralax or Milk of Magnesia.?? Anesthesia makes you very constipated.? Take a dose of milk of magnesia the morning after surgery. ? REPORT: Unusual swelling, severe pain, unresolved nausea, signs of infection, or difficulty in urination to your surgeon. Follow up in clinic with Dr. Pablo in 2 weeks.? [phone] Stand Alone Forms: Anesthesia Discharge Inst., Beverly Johnston ([facility]) Referrals: Guera Pablo, [OSTEOPATHIC DOCTOR] - Activity:: see above Remove Dressings/Wound Care:: 24 hours Shower/Bathe:: 24 hours Diet:: As Tolerated Discharge Orders Discharge Orders: Discharge Order (Routine); Ordered 10/31/23 Ordered By: Guera Pablo DS: Diagnosis Discharge Diagnosis (1) Essential hypertension: Status: Acute (2) Coronary artery calcification: Status: Acute (3) Congenital diverticulum of duodenum: Status: Acute (4) Gallstones: Status: Acute (5) Diverticula of colon: Status: Acute (6) Left inguinal hernia: Status: Acute (7) Compression fracture of L1 lumbar vertebra: Status: Acute
== END 2023-10-31 12:30 | disposition home or self-care (01) ==
PROVIDERS: PCP Family Medicine; Visit Provider Surgery
PROC: (CPT 49505; principal; 2023-10-31 07:30)
DX: K40.90 Unilateral inguinal hernia, without obstruction or gangrene, not specified as recurrent (principal); I25.10 Atherosclerotic heart disease of native coronary artery without angina pectoris; Z98.890 Other specified postprocedural states
CPT/HCPCS: 49505; 76942; C1781; J0171; J0665; J0690; J1100; J2405; J2704; J3010

== ENCOUNTER 2023-11-04 07:27 | Emergency (ER) | payer OTHER, SELFPAY ==
[2023-11-04] VITALS (9 sets, daily range): BP systolic 120–146; BP diastolic 66–89; PULSE 80–97; RESP 20; TEMP 37.1; O2SAT 99
--- NOTE | 2023-11-04 07:54 | W.ED.GENAD ---
Discharge Plan Disposition Patient Disposition: Home Condition: Stable Discharge Details Clinical Impression: Post-op pain, Abdominal pain, Constipation Primary Care Provider: Rosi Rosario ED Provider: Srinath Riley Home Meds and New Rx's Prescriptions: New hydromorphone 2 mg tablet 2 mg PO Q6H PRNQty: 10 0RF Continued Metamucil 3.4 gram/5.4 gram powder 1 tbs PO BID cholecalciferol (vitamin D3) 1,000 unit capsule 1,000 unit PO DAILY cyanocobalamin (vitamin B-12) 500 mcg lozenge 500 mcg PO DAILY arjtryq-ubgmgmxq-dyjq 12.5-625-125 mg capsule 1 cap PO DAILY acetaminophen [Tylenol] 325 mg tablet 650 mg PO PRN PRN zinc 50 mg tablet 50 mg PO DAILY PRN turmeric root extract 500 mg capsule 500 mg PO DAILY PRN pantoprazole [Protonix] 40 mg tablet,delayed release (DR/EC) 40 mg PO DAILY Qty: 90 5RF omega-3 fatty acids-fish oil 1 EACH capsule 1 cap PO DAILY amlodipine 5 mg tablet 5 mg PO DAILY Qty: 90 4RF doxycycline hyclate 50 mg capsule 50 mg PO DAILY Patient Comments: TAKE ONE CAPSULE BY MOUTH EVERY DAY tramadol 50 mg tablet 50 mg PO Q4H PRNQty: 14 0RF No Action ibuprofen 600 mg tablet 600 mg PO BID PRN (Reason: pain) Qty: 60 1RF Patient Comments: Pt reports havent taken since preop visit with surgeon Discharge Instructions Instructions: Constipation (ED) Additional Instructions: Do not take the tramadol if you are taking the hydromorphone, as it can make you drowsy I would recommend taking 100 mg of Colace or generic docusate twice a day. You can also take MiraLAX, follow dosing instructions on the packaging Follow-up with your surgeon as scheduled If you feel more ill, have severe worsening pain or new symptoms such as high fevers return to the emergency department for reevaluation HPI General Mode of arrival: ambulatory. Date/Time Provider Initiated Documentation: 11/04/23 07:28. Limitations to Documentation: no limitations. Information obtained by: patient. History of Present Illness 78 year old M presents to the emergency department with the chief complaint of lower abdominal pain, described as moderate, Quality is described as aching, and is localized to the abdomen. Patient reports no radiation. Patient started experiencing this day(s) (4) and it has been constant. No relieving factors improve symptom(s), No exacerbating factors reported . Patient notes denies chest pain, fever/chills and nausea/vomiting. Patient did receive the following treatments prior to arrival, none Related Data Home Medications Medication Instructions Recorded Confirmed omega-3 fatty acids-fish oil 300 1 cap PO DAILY 10/04/12 11/04/23 mg-1,000 mg capsule cholecalciferol (vitamin D3) 25 1,000 unit PO DAILY 03/09/18 11/04/23 mcg (1,000 unit) capsule psyllium husk 3.4 gram/5.4 gram 1 tbs PO BID 03/09/18 11/04/23 oral powder (Metamucil) cyanocobalamin (vitamin B-12) 500 500 mcg PO DAILY 04/08/21 11/04/23 mcg lozenges acetaminophen 325 mg tablet 650 mg PO PRN PRN 04/13/21 11/04/23 (Tylenol) calcium bnzyjosxp-isbreptc-pvqw 1 cap PO DAILY 04/13/21 11/04/23 12.5 mg-625 mg-125 mg capsule doxycycline hyclate 50 mg capsule 50 mg PO DAILY 12/06/22 11/04/23 ibuprofen 600 mg tablet 600 mg PO BID PRN pain #60 tabs 07/14/23 11/04/23 turmeric root extract 500 mg 500 mg PO DAILY PRN 07/31/23 11/04/23 capsule zinc 50 mg tablet 50 mg PO DAILY PRN 07/31/23 11/04/23 pantoprazole 40 mg tablet,delayed 40 mg PO DAILY #90 tabs 09/20/23 11/04/23 release (Protonix) amlodipine 5 mg tablet 5 mg PO DAILY #90 tab-caps 09/26/23 11/04/23 tramadol 50 mg tablet 50 mg PO Q4H PRN #14 tabs 10/31/23 11/04/23 hydromorphone 2 mg tablet 2 mg PO Q6H PRN #10 tabs 11/04/23 Previous Rx's Medication Instructions Recorded ibuprofen 600 mg tablet 600 mg PO BID PRN pain #60 tabs 07/14/23 pantoprazole 40 mg tablet,delayed 40 mg PO DAILY #90 tabs 09/20/23 release (Protonix) amlodipine 5 mg tablet 5 mg PO DAILY #90 tab-caps 09/26/23 tramadol 50 mg tablet 50 mg PO Q4H PRN #14 tabs 10/31/23 hydromorphone 2 mg tablet 2 mg PO Q6H PRN #10 tabs 11/04/23 Allergies Allergy/AdvReac Type Severity Reaction Status Date / Time morphine Allergy Severe THROAT Verified 11/04/23 07:33 SWELLING simvastatin AdvReac Unknown INTOLERANT Verified 11/04/23 07:33 General Stated Complaint: Abd Prob ARIES: 3 Review of Systems All systems reviewed & are unremarkable except as noted in HPI and below Constitutional Constitutional: Denies chills, Denies fever(s) and Denies weakness Cardiovascular Cardiovascular: Denies chest pain and Denies dyspnea Respiratory Respiratory: Denies cough and Denies dyspnea Gastrointestinal Gastrointestinal: Denies nausea and Denies vomiting Genitourinary Genitourinary: Denies dysuria Integumentary/Breasts Skin/Breast: Denies rash Neurologic Neurologic: Denies weakness Exam Const General: no acute distress Orientation: alert [facility] Head: normal to inspection Ears: external ears normal General nose exam: external nose normal Mouth: moist mucous membranes Eyes General: appearance normal, both eyes and all related structures Neck Neck: normal visual inspection Resp Effort & Inspection: normal respiratory effort and able to speak in complete sentences Cardio Rate: regular rate GI Palpation: soft, not firm, no guarding and tender Neuro General: patient alert and patient oriented x3 Extrem General: normal to inspection Psych Mental Status: mental status grossly normal Course Vital Signs Vital signs: Vital Signs Temperature 37.1 C 11/04/23 07:30 Pulse 95 H 11/04/23 07:30 Respiratory Rate 20 11/04/23 07:30 Blood Pressure 146/84 H 11/04/23 07:30 Pulse Oximetry 99 11/04/23 07:30 Temperature 37.1 C 11/04/23 07:30 Temperature Source Temporal Artery Scan 11/04/23 07:30 Pulse 95 H 11/04/23 07:30 Respiratory Rate 20 11/04/23 07:30 Respiratory Effort Normal, Non-Labored 11/04/23 07:34 Blood Pressure 146/84 H 11/04/23 07:30 Blood Pressure Position Sitting 11/04/23 07:30 Pulse Oximetry 99 11/04/23 07:30 Oxygen Delivery Method Room Air 11/04/23 07:30 Oxygen Flow Rate 0 11/04/23 07:30 Pain Level 10 11/04/23 07:37 Medical Decision Making 78-year-old male with a history of hypertension, gallstone hyperlipidemia, comes in with lower abdominal pain, since having a left inguinal hernia operation on Monday of this past week. He denies any vomiting, no fevers, no urinary symptoms. He has been taking tramadol and Tylenol without significant relief so came here for evaluation. He also notes he has not been having regular bowel movements. He is alert oriented x 4 in no distress on exam. He localizes the pain to the left lower abdomen to superior to where he had his operation, his left inguinal hernia surgical site is well-healing with some bruising around it extending down into the scrotum without any tenderness or pain in the scrotum. There is no erythema or discharge. Suspect this is all postop pain not well-controlled with his current meds but given his age will obtain CBC, CMP, lipase and also CT abdomen pelvis to evaluate for possible other entities such as diverticulitis versus abscess though seems less likely based on exam. labs show mild leukocytosis of 13, ct shows multiple gallstones which she had before, no pericholecystic fluid or thickened gallbladder wall. Also has a known duodenal diverticulum. Findings in the left inguinal hernia consistent with likely postop he can exclude infection though he has no signs on exam to represent this. He feels significantly better after hydromorphone, ambulating without any pain. Discussed with him he feels comfortable with discharge, will follow-up with his surgeon and return precautions given Differential Diagnosis Differential Diagnosis: Postop pain, seroma, constipation Medical Records Medical records reviewed: Yes I reviewed the patient's medical records. Imaging Data Radiologic Study: Attestation: I personally reviewed and interpreted this imaging study as follows: Imaging: CT Scan Radiologist's impression: IMPRESSION: 1. Multiple gallstones in a distended gallbladder. 2. 4.5 cm collection of air and debris projecting off of the 3rd duodenum. Most likely represents duodenal diverticulum., Less likely duodenal ulcer. 3. Bubbles of air and soft tissue densities in the left inguinal region consistent with recent surgery. Infection cannot be ruled out. There may be small amount hemorrhage in this region as well. (Series 4 image [id number] ).. Lab Data Lab results reviewed: Yes I reviewed the patient's lab results. Quality:SDOH Health Related Social Needs: No Data to Display PFSH All Active Problems (Updated 11/04/23 @ 10:04 by Srinath Riley MD) Constipation (Acute) Abdominal pain (Acute) Post-op pain (Acute) Diverticula of colon (Acute) Congenital diverticulum of duodenum (Acute) Compression fracture of L1 lumbar vertebra (Acute) Left inguinal hernia (Acute) Coronary artery calcification (Acute) Gallstones (Acute) Recurrent depression (Chronic) Essential hypertension (Acute 04/08/13) Generalized osteoarthrosis of multiple sites (Acute) right ankle Hyperlipidemia (Acute) Rosacea (Acute) Sensorineural hearing loss, bilateral (Acute 09/14/15) Incontinence of feces (Acute) Chronic insomnia (Acute) Arthritis of right glenohumeral joint (Acute) 40 mg corticosteroid injection 09/14/22 Medical History (Updated 11/04/23 @ 10:04 by Srinath Riley MD) Esophagitis Dysphagia 2004- HH, esophageal ring and presbyesophagus. Normal esophagogastroduodenoscopy (EGD) History of tobacco use quit 06/19/1979; smoked for 25 yrs History of left heart catheterization (~2007) non obstructive disease Raised prostate specific antigen Closed right ankle fracture DJD Peptic ulcer disease 2004- H. pylori positive treated Adenomatous polyp of colon s/p sigmoid resection for large polyp 2008 History of elevated PSA CAD (coronary artery disease) chest pain 2007- cath- nonobstructive Recurrent anxiety Hx of sciatica Surgical History (Updated 11/03/23 @ 11:31 by Alicia Jacinto) Hx of left inguinal hernia repair (~10/2023) open left with mesh placement History of esophagogastroduodenoscopy (~11/2022) History of dilation of urethra History of hemicolectomy RIGHT HEMICOLECTOMY, 02/25 OPEN HEMICOLECTOMY @ 40CM TO REMOVE TUBULAR ADENOMA COVERING 1/3 OF BOWEL WALL. Status post prostatectomy enlarged, no cancer per pt History of esophagogastroduodenoscopy (EGD) (05/29/18) 05/29/18 - EGD - Dr Rome - focal intestinal metaplasia and active reflux, repeat 6 mos. Ranitidine BID. Urethral Dilation Sigmoid resection for polyps 2008 Colonoscopy - MAC (03/29/17) Family History Mother , age 81 Neoplasm Alzheimers disease Father , age 75 Heart disease Sister , age 71 Heart disease Alzheimers disease Sister , age 79 Heart disease Neoplasm Alzheimers disease Brother , age 52 Heart disease Brother , age 45 Heart disease Maternal Grandfather No problems noted. Paternal Grandfather No problems noted. Maternal Grandmother No problems noted. Paternal Grandmother No problems noted. FAMILY HISTORY Diabetes Sister , age 62 Neoplasm Heart disease Brother Heart disease Social History Smoking/Tobacco Use Status: Former Tobacco Use tobacco type: cigarettes Quit Date: 06/19/79 Pack-years: 20 Second Hand Exposure: Yes Smoking risk assessment performed?: Yes Alcohol Intake: current Alcohol Intake frequency: holidays/special occasions only Alcohol type: wine and hard liquor Drug use: Rarely Substance use type: marijuana Adopted: No Household members: significant other Housing: house Number of Children: 3 number of grandchildren: 4 Communication Needs: Hard of Hearing Education Level: elementary school Details: 7th grade Do you need help understanding health information?: Often current occupation: Retired from [employer] and [employer]. Pets and animals: No Sexually active: Yes Current gender identity: male What is your relationship status?: How often do you talk on the phone with friends or family?: three or more times per week How often do you get together with friends or relatives?: once per week Do you belong to any clubs or organized social groups?: no Panel score (0-1 are the most socially isolated patients): 2 What type of physical activity do you participate in: none and other Details: chores Frequency: daily [place]/Congregational: No preference Agree to transfusion: Yes (Maybe) Seatbelt use: always Drive intox or ride w/intox medical delivery driver: No Firearms in home: Yes Firearms unloaded and locked: Yes Do you feel safe at home: Yes Do you feel safe in your relationship?: Yes Victim of physical abuse: No Victim of emotional abuse: No Victim of sexual abuse: No
[2023-11-04] MEDS: HYDROmorphone 2 MG/ML SYR 0.5 MG IVP ×2 (08:07→09:13)
[2023-11-04] MEDS: Normal Saline 1,000 ML 1000 ML IV (08:07)
[2023-11-04 08:09] LABS: Abs Immature Grans 0.05 10^3/uL (0.0-0.06); Absolute Basophil Count 0.03 10^3/uL (0.0-0.2); Absolute Eosinophil Count 0.07 10^3/uL (0.0-0.7); Absolute Lymphocyte Count 1.59 10^3/uL (1.2-3.4); Absolute Monocyte Count 1.59 10^3/uL (0.1-0.8); Basophils % 0.2 %; Eosinophils % 0.5 %; HCT 42.3 % (40.0-50.0); HGB 14.7 g/dL (13.5-17.5); Immature Grans % 0.4 %; Lymphocytes % 12.2 %; MCH 34.3 pg (27.0-33.0); MCHC 34.8 % (32.0-36.0); MCV 99 fL (80-95); MPV 8.5 fL (8.0-11.0); Monocytes % 12.2 %; Neutrophils % 74.5 %; Platelet Count 216 10^3/uL (130-400); RBC 4.28 10^6/uL (4.36-5.78); RDW 12.7 % (11.8-14.1); RDW-SD 45.8 fL
[2023-11-04 08:12] LABS: Absolute Neutrophil Count 9.69 10^3/uL (1.2-6.7)
[2023-11-04 08:25] LABS: ALT 26 U/L (16-63); AST 15 U/L (15-37); Albumin 3.9 g/dL (3.4-5.0); Alkaline Phosphatase 60 U/L (46-116); Anion Gap 7.5 mmol/L (3-11); BUN 13 mg/dL (7-18); Bilirubin, Direct 0.3 mg/dL (0.0-0.2); Bilirubin, Total 1.3 mg/dL (0.2-1.0); CO2 28.5 mmol/L (21.0-32.0); CREATININE 0.9 mg/dL (0.70-1.30); Calcium 9.4 mg/dL (8.5-10.1); Chloride 96 mmol/L (98-107); Estimated GFR 87.42 (mL/min/1.73m2); Glucose 101 mg/dL (74-106); Lipase 35 U/L (16-77); Magnesium 1.8 mg/dL (1.8-2.4); Potassium 4.6 mmol/L (3.5-5.1); Sodium 132 mmol/L (136-145); Total Protein 7.9 g/dL (6.4-8.2)
[2023-11-04 08:30] LABS: Diff Comment Diff Reviewed; RBC Morphology Normal
[2023-11-04] MEDS: Omnipaque 350 MG/ML 100 ML BTL IJ (08:34)
[2023-11-04] MEDS: Normal Saline - Diluent 50 ML VIAL IJ (08:34)
[2023-11-04 09:04] LABS: Procalcitonin < 0.1 ng/mL
--- NOTE | 2023-11-04 09:06 | DI.CT_ITS ---
Exam(s) CT ABDOMEN PELVIS W EXAM: CT ABDOMEN PELVIS W CLINICAL HISTORY: recent inguinal hernia surgery, increased pain. TECHNIQUE: Imaging Protocol: Axial computed tomography images with coronal and sagittal reformatted images were created and reviewed CONTRAST MATERIAL: Intravenous: Omnipaque-350 100cc Oral: None COMPARISON: CT CT ABDOMEN PELVIS W from 08/24/2023 FINDINGS: VISUALIZED LUNG BASES: No nodules nor pleural effusions evident. Some calcification is again noted i n the anterior pericardium. There is no pericardial effusion. ABDOMEN: There is no ascites. LIVER: There are no focal hepatic lesions evident. No dilated intrahepatic ducts. GALLBLADDER/BILIARY: Multiple gallstones again noted. Gallbladder is slightly distended but not rimma atous and there is no pericholecystic fluid gallstones measure approximately 6 millimeters each. The re are no calculi in the nondistended CBD. 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 PANCREAS: No evidence of pancreatic mass nor dilatation of the pancreatic duct. SPLEEN: Spleen is not enlarged. No obvious intrasplenic lesions. Splenic and portal veins are paten t. ADRENALS: There are no significant adrenal masses. KIDNEYS:There is a benign cyst in the posterior cortex of the left kidney which measures 2.2 by a 2.0 cm. Does not require further workup. Smaller cysts are noted in the cortex of the opposite-right k idney and there is a nonobstructive 2-3 millimeter calculus in the inferior pole the right kidney als o noted. No solid renal masses. ABDOMINAL AORTA: Abdominal aorta is calcified-upper normal diameter. Common iliac arteries are also calcified but not enlarged. LYMPH NODES:There is no retroperitoneal nor paraaortic adenopathy. ABDOMINAL WALL: There is evidence of recent left inguinal hernia repair. There is soft tissue densit y and some gas bubbles evident in the left internal inguinal ring area and was probably a small amoun t of hemorrhage in this region. Appearance in this region is of probable abscess measuring approxima tely 4 x 4 cm. Also some gas bubbles in the left inguinal canal. PELVIS: GI: No evidence of appendicitis.Redundant sigmoid in the left lower quadrant. LYMPH NODES: There is no intrapelvic nor inguinal adenopathy. REPRODUCTIVE: Prostate not enlarged. URINARY BLADDER: No calculi nor obvious masses evident OSSEOUS: No fractures and no significant osseous lesions. Wedge compression fracture of L1 is again noted, unchanged from 08/24/2023. IMPRESSION: 1. In this patient was had recent left inguinal hernia repair surgery there is abnormal streaking and air and what appears to be an abscess in the internal left inguinal ring region, this measuring appr oximately 4 x 4 cm. 2. Adjacent redundant sigmoid without evidence of diverticulosis nor obvious diverticulitis. Also no evidence of appendicitis. 3. Multiple gallstones again noted. No evidence of acute cholecystitis. No dilatation of the biliar y tree, both intra and extrahepatic. 4. There is nonobstructive 3 millimeter calculus in the inferior pole of the right kidney. No hydron ephrosis. No hydroureter. First read by [facility]. Final report called by myself to ER physician 11/04/2023 5:02 p.m. RADIATION DOSE DELIVERED: 801.86mGy.cm Total DLP DATA REPOSITORY: All CT scans at this facility are submitted to the National Radiology Data Registry (NRDR) Dose Index Registry (DIR) with the [employer] ([employer]). RADIATION OPTIMIZATION: All CT scans at this facility use at least one of these dose optimization te chniques: automated exposure control; mA and/or kV adjustment per patient size (includes targeted exa ms where dose is matched to clinical indication); or iterative reconstruction.
[2023-11-04 09:08] LABS: Bilirubin Negative (Negative); Blood Trace-lysed (Negative); Clarity Clear (Clear); Glucose Negative (Negative); Ketones Negative (Negative); Leukocyte Esterase Negative (Negative); Nitrite Negative (Negative); Specific Gravity 1.015 (1.005-1.025); Urobilinogen 0.2 mg/dL (Up to 0.2)
[2023-11-04 09:14] LABS: Bacteria Negative HPF (Negative); C & S Indicated? No; Casts Negative LPF (Negative); Crystals Negative HPF (Negative); Epithelial Cells Rare HPF (Negative); Mucus Negative (Negative); RBC 0-2 HPF (0-2); WBC Negative HPF (0-5)
--- NOTE | 2023-11-04 09:46 | DI.VRAD_ITS ---
PROCEDURE INFORMATION: Exam: CT Abdomen And Pelvis With Contrast Exam date and time: 11/04/2023 8:56 AM Age: 78 years old Clinical indication: Other: Recent inguinal hernia surgery, increased pain; Prior surgery; Surgery date: 3-7 days post-operative; Surgery type: Inguinal hernia repair on October 31, 2023 TECHNIQUE: Imaging protocol: Computed tomography of the abdomen and pelvis with contrast. Contrast material: OMNIPAQUE 350; Contrast volume: 100 ml; Contrast route: INTRAVENOUS (IV); COMPARISON: CT ABDOMEN PELVIS W 08/24/2023 3:02 PM FINDINGS: Liver: Normal. No mass. Gallbladder and bile ducts: Multiple gallstones in a distended gallbladder. Pancreas: Normal. No ductal dilation. Spleen: Normal. No splenomegaly. Adrenal glands: Normal. No mass. Kidneys and ureters: 2 cm simple cyst posteromedial left kidney. . No follow-up imaging recommended . Nonobstructing right renal calculus. Subcentimeter low attenuation area in the right kidney is too small for characterization. Stomach and bowel: 4.5 cm collection of air and debris projecting off of the 3rd duodenum. Most likely represents duodenal diverticulum., Less likely duodenal ulcer. Appendix: No evidence of appendicitis. Intraperitoneal space: Unremarkable. No free air. No significant fluid collection. Vasculature: Unremarkable. No abdominal aortic aneurysm. Lymph nodes: Unremarkable. No enlarged lymph nodes. Urinary bladder: Distended bladder Reproductive: Unremarkable as visualized. Bones/joints: Severe compression fracture of L1 is stable. No acute fracture. Soft tissues: Bubbles of air and soft tissue densities in the left inguinal region consistent with recent surgery. Infection cannot be ruled out. There may be small amount of hemorrhage in this region as well. (Series 4 image [id number] ).. IMPRESSION: 1. Multiple gallstones in a distended gallbladder. 2. 4.5 cm collection of air and debris projecting off of the 3rd duodenum. Most likely represents duodenal diverticulum., Less likely duodenal ulcer. 3. Bubbles of air and soft tissue densities in the left inguinal region consistent with recent surgery. Infection cannot be ruled out. There may be small amount hemorrhage in this region as well. (Series 4 image [id number] ).. Dictated and Authenticated by: Gal Dan MD. Ordering:FADUMO Yo MD
--- NOTE | 2023-11-04 17:15 | ED.FU.B_ITS ---
Date of service: 11/04/23 Follow Up Plan: Patient was evaluated in the emergency department earlier today by Dr. Riley. Patient had been discharged. The radiologist has over read by [employer] [facility] and is concern for possible abscess. I reviewed the documentation and noted a slightly elevated white blood cell count of 13. I discussed with this CT imaging and discrepancy of the read with the on-call surgeon he feels at this time is very unlikely that the patient has an abscess and does not recommend a change in management at this time.
== END 2023-11-04 10:17 | disposition home or self-care (01) ==
PROVIDERS: Emergency Provider Emergency Medicine; PCP Family Medicine
DX: R10.30 Lower abdominal pain, unspecified (principal); M54.50 Low back pain, unspecified; K59.00 Constipation, unspecified; G89.18 Other acute postprocedural pain
CPT/HCPCS: 36415; 80053; 83690; 84145; 96361; 96374; 96376; 99284; 74177; 81003; 81015; 82248; 83735; 85025; 99283; J1170; J3490

== ENCOUNTER → 2023-11-07 12:40 | Outpatient (BNVA) | payer OTHER, SELFPAY | PROVIDERS: PCP Family Medicine; Referring Provider Family Medicine; Visit Provider Student in an Organized Health Care Education/Training Program | DX: S30.22XD Contusion of scrotum and testes, subsequent encounter (principal); X58.XXXD Exposure to other specified factors, subsequent encounter ==

== ENCOUNTER → 2023-11-16 08:49 | Outpatient (BNVA) | payer OTHER, SELFPAY | PROVIDERS: PCP Family Medicine; Referring Provider Family Medicine; Visit Provider Surgery | DX: Z48.817 Encounter for surgical aftercare following surgery on the skin and subcutaneous tissue (principal); K40.90 Unilateral inguinal hernia, without obstruction or gangrene, not specified as recurrent ==

== ENCOUNTER 2024-07-31 04:14 | Outpatient (CLI) | payer MEDICARE, SELFPAY ==
[2024-07-31 12:39] LABS: Anion Gap 6.8 mmol/L (3-11); BUN 11 mg/dL (7-18); CO2 28.2 mmol/L (21.0-32.0); CREATININE 0.9 mg/dL (0.70-1.30); Calcium 9.3 mg/dL (8.5-10.1); Calculated LDL 103 mg/dL (<100); Chloride 102 mmol/L (98-107); Cholesterol 193 mg/dL (<200); Estimated GFR 86.88 (mL/min/1.73m2); Glucose 105 mg/dL (74-106); HDL Cholesterol 72 mg/dL (40-60); Potassium 4.2 mmol/L (3.5-5.1); Sodium 137 mmol/L (136-145); Triglyceride 93 mg/dL (<150)
== END 2024-07-31 04:15 | disposition home or self-care (01) ==
LOC: LOS 04:14
PROVIDERS: PCP Family Medicine; Referring Provider Family Medicine; Visit Provider Family Medicine
DX: I10 Essential (primary) hypertension (principal); Z13.6 Encounter for screening for cardiovascular disorders; E78.5 Hyperlipidemia, unspecified
CPT/HCPCS: 36415; 80048; 80061